=== PATIENT | female | born 1960 | race Caucasian/White ===

== ENCOUNTER 2024-03-16 09:20 | Inpatient (IN) | payer MEDICAID, SELFPAY ==
--- NOTE | 2024-03-16 09:35 | XR_ITS ---
Examination: AP lateral chest 2 views TECHNIQUE: Sitting AP lateral chest 2 views Exam date and time: March 16, 2024 1004 hours INDICATIONS: Chest pain today FINDINGS: Mild prominence left ventricle No lobar pneumonia or pulmonary edema Moderate osteopenia IMPRESSION: No lobar pneumonia or pulmonary edema
--- NOTE | 2024-03-16 09:35 | EKG_ITS ---
[facility] Test Date: 2024-03-16 Pat Name: RAJWINDER RDZ Department: Room: - Gender: Female Telehealth Nurse: : 1960 Requested By: Kirk Garcia Order Number: [id number] Reading MD: Kirk Garcia Measurements Intervals [place] Rate: 86 P: 78 VT: 176 QRS: -17 QRSD: 82 T: 66 QT: 285 QTc: 341 Interpretive Statements SINUS RHYTHM LOW QRS VOLTAGE IN PRECORDIAL LEADS [QRS DEFLECTION < 1.0 mV IN CHEST LEADS] POSSIBLE ANTERIOR MYOCARDIAL INFARCTION , PROBABLY OLD [30 ms Q WAVE IN V3/V4, OR R < 0.2 mV IN V4] Compared to ECG 08/14/2021 08:20:37 Myocardial infarct finding now present /store/S0/[id number]
--- NOTE | 2024-03-16 09:35 | XR_ITS ---
Examination: CT brain head without contrast. 2-D sagittal coronal reconstructions Date and time of exam:March 16, 2024 0949 hours Comparison July 20, 2018 INDICATIONS: Seizures today and dizziness lightheadedness beginning 4 days ago CTDI: vol (mGy):47.2 DLP: (mGycm):948 Technique: Multiple CT axial sections of the brain have been obtained, 5 mm slice thickness. Contrast has not been administered. 2-D sagittal, coronal reconstructions have been obtained Low dose protocols were performed. One or more of the following dose reduction techniques were used; automated exposure control, adjustment of the mA and/or KV according to patient size, use of iterative reconstruction technique. Findings: Fourth ventricle remains enlarged Intra-axial or extra-axial hemorrhage density is not seen. No mass effect or midline shift Basal cisterns are not remarkable. Fourth ventricle is midline. Cranial vault intact. Impression: Negative for acute hemorrhage, mass effect or midline shift Advise clinical correlation and follow-up accordingly
--- NOTE | 2024-03-16 09:36 | EDRME_ITS ---
Rapid Medical Screening Exam RME Arrival date/time: 03/16/24 09:20 63-year-old female with a history of developmentally delayed, seizures, hypertension, hyperlipidemia, presents to the emergency room with a chief complaint of seizures x 4 days as well as weakness and lethargy. Patient is currently from a intermediate and was sent over by her primary care provider. I have greeted and performed a focused initial assessment of this patient. A comprehensive ED assessment and evaluation of the patient, analysis of all test results, and completion of the medical decision making process will be conducted by additional ED providers. Chief Complaint: Seizure Time Seen by Provider: 03/16/24 09:26 Vital signs reviewed by provider: Yes
[2024-03-16 09:45] VITALS: BP 133/83; PULSE 62; RESP 19; TEMP 36.8; O2SAT 97
[2024-03-16 10:29] LABS: Basophils % (Auto) 0 % (0-2.5); Eosinophils % (Auto) 0 % (0-10); Hematocrit 32.3 % (36.0-46.0); Hemoglobin 10.4 g/dL (12.0-16.0); Immature Granulocytes % (Auto) 0 % (0-0); Immature Granulocytes Auto 0.01 Thou/mm3 (0.00-0.00); Lymphocytes % (Auto) 17 % (10-50); Mean Corpuscular HGB Conc 32.2 g/dl (31.0-37.0); Mean Corpuscular Hemoglobin 27.4 pg (25.0-35.0); Mean Corpuscular Volume 85 fL (80-100); Monocytes # (Auto) 0.4 Thou/mm3 (0.0-0.8); Monocytes % (Auto) 7 % (0-12); Neutrophils # (Auto) 4.4 Thou/mm3 (1.8-7.7); Neutrophils % (Auto) 76 % (37-80); Nucleated Red Blood Cell % 0 /100 WBC (0); Platelet Count 142 Thou/mm3 (140-440); RDW Standard Deviation 41.4 fL (36.4-46.3); White Blood Count 5.8 Thou/mm3 (3.6-11.0)
[2024-03-16 10:45] LABS: Partial Thromboplastin Time 22.7 Seconds (22.0-36.0); Prothrombin Time 10.8 Seconds (9.0-12.2)
[2024-03-16 10:48] LABS: B-Type Natriuretic Peptide 28 pg/mL (0-100)
[2024-03-16 10:50] LABS: Alanine Aminotransferase 17 U/L (10-49); Albumin, Serum 4.5 gm/dL (3.4-4.8); Albumin/Globulin Ratio 1.7 (1.2-2.2); Alkaline Phosphatase 119 U/L (46-116); Anion Gap 7 (7-16); Aspartate Amino Transferase 13 U/L (0-34); BUN/Creatinine Ratio 16 Ratio (12-20); Bilirubin,Total 0.3 mg/dL (0.3-1.2); Blood Urea Nitrogen 36 mg/dL (9-23); Carbon Dioxide 33.2 mMol/L (20.0-31.0); Chloride 98 mMol/L (98-107); Creatinine (Component) 2.2 mg/dL (0.6-1.3); Globulin 2.7 gm/dL (2.3-3.5); Glucose 116 mg/dL (74-106); LDH (Lactate Dehydrogenase) 158 U/L (120-246); Magnesium 2.7 mg/dL (1.6-2.6); Osmolality,Calculated 284 (275-295); Potassium 3.2 mMol/L (3.4-5.1); Sodium 138 mMol/L (136-145); Total Protein 7.2 gm/dL (5.7-8.2); Troponin I < 0.020 ng/mL (0.0-0.045); eGFR 25 See Note
[2024-03-16 12:06] LABS: Collection Type, Urine Clean Catch
[2024-03-16 12:30] VITALS: BP 137/91; PULSE 80; RESP 18; TEMP 36.4; O2SAT 98
[2024-03-16 14:12] LABS: Bilirubin,Urine Negative (Negative); Blood,Urine Negative (Negative); Clarity,Urine Clear (Clear/Hazy); Color,Urine Lt-Yellow (Lt Yel-Yel); Glucose, Urine Negative (Negative); Hyaline Casts,Urine 1 /hpf (0-1); Ketones,Urine Negative (Negative); Leukocyte Esterase,Urine Negative (Negative); Nitrite,Urine Positive (Negative); PH,Urine 6.5 (5.0-7.0); Protein,Urine Trace (Neg - Trace); RBC,Urine 2 /hpf (0-3); Specific Gravity,Urine 1.013 (1.001-1.035); Squamous Epithelial Cell,Urine < 1 /hpf (0-5); Urobilinogen,Urine Negative mg/dL (0.0-1.0); WBC,Urine 5 /hpf (0-5)
[2024-03-16 15:26] VITALS: BP 134/86; PULSE 79; RESP 18; TEMP 36.7; O2SAT 100
[2024-03-16] MEDS: levETIRAcetam INJ 100 MG/ML VIAL 5ML 1000 MG IVP (15:37)
[2024-03-16] MEDS: SODIUM CHLORIDE 0.9% 1000 ML 1,000 ML 999 ML IV ×2 (15:37→17:29)
--- NOTE | 2024-03-16 15:38 | EDNOTE_ITS ---
<Statement entered by Shawna Bill MD - 03/22/24 16:20> As co-signing physician, I was present and available for consult prn. I concur with the plan and care as documented by the midlevel provider. ED General RME/HPI General Chief complaint: Seizure Stated complaint: SEIZURES Time Seen by Provider: 03/16/24 09:26 Arrival date/time: 03/16/24 09:20 CC: Seizure disorder HPI patient had approximately 4 seizures by care providers at bedside who report each lasting 45 seconds plus or minus last seizures prior to these was 1 year ago. He is on 2 seizure medication is managed by Dr. Elizondo the neurologist. Patient is developmentally delayed awake alert happy answering all questions in both Czech and Hebrew. She is nontoxic- appearing not in any acute distress. RME / HPI RME / HPI narrative: 03/16/24 09:20 63-year-old female with a history of developmentally delayed, seizures, hypertension, hyperlipidemia, presents to the emergency room with a chief complaint of seizures x 4 days as well as weakness and lethargy. Patient is currently from a assisted and was sent over by her primary care provider. I have greeted and performed a focused initial assessment of this patient. A comprehensive ED assessment and evaluation of the patient, analysis of all test results, and completion of the medical decision making process will be conducted by additional ED providers. Related Data Home Medications ?Medication ?Instructions ?Recorded ?Confirmed calcitriol 0.25 mcg capsule 1 mcg PO QDAY 02/15/23 03/16/24 carbamazepine 200 mg tablet 200 mg PO BID 02/15/23 03/16/24 cholecalciferol (vitamin D3) 50 50 mcg PO QDAY 02/15/23 03/16/24 mcg (2,000 unit) tablet levetiracetam 500 mg tablet 500 mg PO BID 02/15/23 03/16/24 levothyroxine 112 mcg tablet 112 mcg PO ACBR 02/15/23 03/16/24 losartan 50 mg tablet 50 mg PO QDAY 02/15/23 03/16/24 magnesium oxide 400 mg (241.3 mg 400 mg PO QDAY 02/15/23 03/16/24 magnesium) tablet oxybutynin chloride 5 mg tablet 5 mg PO QDAY 02/15/23 03/16/24 risperidone 0.5 mg tablet 0.25 mg PO BID 02/15/23 03/16/24 simvastatin 40 mg tablet 40 mg PO HS 02/15/23 03/16/24 zonisamide 100 mg capsule 200 mg PO BID 02/15/23 03/16/24 calcium 600 mg (as 600 tab PO BID 03/16/24 03/16/24 carbonate)-vitamin D3 10 mcg (400 unit) tablet cetirizine 10 mg tablet 10 mg PO QDAY 03/16/24 03/16/24 ferrous sulfate 325 mg (65 mg 325 mg PO QDAY 03/16/24 03/16/24 iron) tablet (FeroSul) fluticasone propionate 50 2 spray intranasal QDAY 03/16/24 03/16/24 mcg/actuation nasal spray,suspension hydroxyzine HCl 25 mg tablet 25 mg PO HS 03/16/24 03/16/24 olopatadine 0.1 % eye drops 1 drp ophthalmic (eye) BID 03/16/24 03/16/24 Allergies Allergy/AdvReac Type Severity Reaction Status Date / Time No Known Allergies Allergy Unverified 03/16/24 09:24 Review of Systems Review of Systems Narrative Review of Systems: GEN: No fever, no chills, no weight loss EYES: No discharge, no visual changes, no pain HEENT: No ear pain, no congestion, no sore throat PULM: No shortness of breath, no cough, no congestion CV: No chest pain, no dyspnea on exertion, no palpitations GI: No nausea, no vomiting, no diarrhea, no pain, no constipation : No frequency, no urgency, no dysuria MUSC/SKEL: No joint pain, no back pain SKIN: No rash PSYCH: No hallucinations, no depression HEME/LYMPH: No easy bleeding or bruising tendencies NEURO: No weakness, no headache Past Medical History Past Medical History NEUROLOGIC: Positive Neurological Disorders, Seizures and Epilepsy CARDIAC: Positive Cardiac Disorders, Hypercholesterolemia and Hypertension; Negative Congestive Heart Failure RESPIRATORY: Negative Chronic Obstructive Pulmonary Disease (COPD) or Asthma GENITOURINARY: Negative Renal Disease REPRODUCTIVE: Negative Breast Cancer MUSCULOSKELETAL: Negative Musculoskeletal Disorders ENDOCRINE: Positive Hypothyroidism; Negative Diabetes Mellitus Type 1 or Diabetes Mellitus Type 2 OTHER HISTORY: Positive Falls; Negative Blood Transfusions, Blood Transfusion Reaction, Anesthesia Reactions, Clostridium Difficile, Cancer or Breast Cancer Family History FAMILY HISTORY: Positive Family Respiratory Disorders and Family Cardiac Disorders Surgical History SURGICAL: Negative Endocrine Surgery or Ear Surgery Social History SMOKING STATUS: Never smoker ED Exam Narrative Physical exam: [General: Obese, appears not in any acute distress Head normocephalic HEENT: Within acceptable limits Neck is supple nontender Chest equal chest rise nontender to palpation Respiratory: Clear to auscultation no wheezes crackles or rubs CV: Rate rhythm is regular no murmurs rubs or clicks Abdomen is distended secondary to body habitus soft nontender no masses positive bowel sounds all 4 quadrants Back: No CVA tenderness no spinous process tenderness from cervical spine thoracic and lumbar spine Skin: Intact no petechiae rash induration ulceration or crepitus Extremities: Moving all extremity against resistance cap refill less than 2 seconds neurosensory intact Neuro: Awake alert oriented x3 Glascow coma 15 no focal deficits] cranial nerves II through XII are grossly intact. Course Quality Measures none Orders Category Date Time Status Patient Condition Routine Admission 03/16/24 16:06 Ordered EKG (ED ONLY) *Do not use* NOW Care 03/16/24 09:35 Completed Flu & Pneumonia Vaccine Screen ONCE Care 03/16/24 16:07 Active Notify provider NEEDED Care 03/16/24 16:07 Active Obtain weight daily Care 03/16/24 16:07 Active Saline [Insert IV] NOW Care 03/16/24 15:21 Completed Consult to Nephrology Stat Cons 03/17/24 06:[address] head/brain wo con Stat Exams 03/16/24 09:35 Completed EKG (ED Only) Stat Exams 03/16/24 09:35 Draft XR chest 2V Stat Exams 03/16/24 09:35 Completed B-Type Natriuretic Peptide Stat Lab 03/16/24 10:17 Completed CA 125 Stat Lab 03/16/24 16:38 Completed CA 19-9 Antigen* Stat Lab 03/16/24 16:38 Received CBC AM DRAW Lab 03/17/24 05:10 Completed CBC AM DRAW Lab 03/18/24 05:47 Completed CBC AM DRAW Lab 03/19/24 05:00 Ordered CBC AM DRAW Lab 03/20/24 05:00 Ordered CBC AM DRAW Lab 03/21/24 05:00 Ordered CBC Stat Lab 03/16/24 10:17 Completed CEA [Carcinoembryonic Antigen] Stat Lab 03/16/24 16:38 Completed Comprehensive Metabolic Panel AM DRAW Lab 03/17/24 05:10 Completed Comprehensive Metabolic Panel AM DRAW Lab 03/18/24 05:47 Completed Comprehensive Metabolic Panel AM DRAW Lab 03/19/24 05:00 Ordered Comprehensive Metabolic Panel AM DRAW Lab 03/20/24 05:00 Ordered Comprehensive Metabolic Panel AM DRAW Lab 03/21/24 05:00 Ordered Comprehensive Metabolic Panel Stat Lab 03/16/24 10:17 Completed Free T4 (Free Thyroxine) Stat Lab 03/16/24 10:17 Completed LDH (Lactate Dehydrogenase) Stat Lab 03/16/24 10:17 Completed Lipid Panel AM DRAW Lab 03/17/24 05:10 Completed Magnesium AM DRAW Lab 03/17/24 05:10 Completed Magnesium AM DRAW Lab 03/18/24 05:47 Completed Magnesium AM DRAW Lab 03/19/24 05:00 Ordered Magnesium AM DRAW Lab 03/20/24 05:00 Ordered Magnesium AM DRAW Lab 03/21/24 05:00 Ordered Magnesium Stat Lab 03/16/24 10:17 Completed PTH [Parathyroid Hormone Intact] Stat Lab 03/16/24 16:38 Completed Partial Thromboplastin Time Stat Lab 03/16/24 10:17 Completed Phosphorous AM DRAW Lab 03/17/24 05:10 Completed Phosphorous AM DRAW Lab 03/18/24 05:47 Completed Phosphorous AM DRAW Lab 03/19/24 05:00 Ordered Phosphorous AM DRAW Lab 03/20/24 05:00 Ordered Phosphorous AM DRAW Lab 03/21/24 05:00 Ordered Phosphorous Stat Lab 03/16/24 10:17 Completed Prothrombin Time with INR Stat Lab 03/16/24 10:17 Completed TSH [Thyroid Stimulating Hormone] Stat Lab 03/16/24 10:17 Completed Thyroid Stimulating Hormone AM DRAW Lab 03/17/24 05:10 Completed Troponin I Stat Lab 03/16/24 10:17 Completed Urinalysis Stat Lab 03/16/24 11:28 Completed Urine Culture Stat Lab 03/16/24 11:28 Completed Acetaminophen Tab [Tylenol Tab] Med 03/16/24 16:05 Active 650 mg PO Q6H PRN Acetaminophen Tab [Tylenol Tab] Med 03/16/24 16:05 Active 650 mg PO Q6H PRN Docusate Sod [Colace] Med 03/17/24 09:00 Active 100 mg PO QDAY Heparin Inj Med 03/16/24 22:00 Active 5,000 unit SC Q8HR Ondansetron Inj [Zofran Inj] Med 03/16/24 16:05 Active 4 mg IV Q6H PRN Sodium Chloride 0.9% 1000 ml [Ns] 1,000 ml Med 03/16/24 15:23 Discontinued IV 999 mls/hr Sodium Chloride 0.9% 1000 ml [Ns] 1,000 ml Med 03/16/24 17:09 Discontinued IV 999 mls/hr levETIRAcetam INJ [Keppra Inj] Med 03/16/24 15:21 Discontinued 1,000 mg IVP X1 ONE Code Status Routine Oth 03/16/24 16:05 Ordered Vital Signs Vital signs: Vital Signs Temperature 98.2 F 03/16/24 09:45 Pulse Rate 62 03/16/24 09:45 Respiratory Rate 19 03/16/24 09:45 Blood Pressure 133/83 H 03/16/24 09:45 Pulse Oximetry (%) 97 03/16/24 09:45 Oxygen Delivery Method Room Air 03/16/24 09:45 [facility] Patient data External records reviewed:: [facility] previous records and EMS form Clinical information provided by:: patient and EMS Social determinants that could affect healthcare access:: none Patient has the following chronic illnesses:: Developmentally delayed seizure disorder, hypothyroidism How is presenting disease/condition affected by chronic disease/condition?: e xacerbated by Evaluation data The following diagnostics were reviewed and interpreted by me:: lab results and radiology exam(s) Lab and/or radiology exams considered but not ordered:: CBC shows no leukocytosis and improved anemia of 10 and 32 no thrombocytopenia CMP shows a sodium 138 potassium 3.2 chloride of 9 8 CO2 of 33.2 BUN of 36 creatinine 2.2 glucose of 116 Calcium and corrected calcium of 16.0 Urine is negative for UTI Interpretation Summary: Patient has noes postictal effects from the seizures, reloaded the patient with 1 g of Keppra. Staff assured me the patient has been getting all of her medications regularly which in turn is my concern for the elevated calcium level as she is on a calcium tablet twice a day. At this time patient needs to be admitted to the hospital for hypercalcemia and GABRIEL. Patient's case discussed with Dr. Bryant who agrees to accept the patient for Dr. Brown attending Medications Medications considered but not ordered:: None Medication administrations:: Medication Administration History Acetaminophen (Acetaminophen 325 Mg Tablet) 650 mg PO Q6H PRN PRN Reason: Fever >100.5 Stop: 04/15/24 16:04 Acetaminophen (Acetaminophen 325 Mg Tablet) 650 mg PO Q6H PRN PRN Reason: PAIN SCALE 1-3 (mild Stop: 04/15/24 16:04 Last Admin: 03/17/24 14:31 Dose: 650 mg Documented By: SHAWN Atorvastatin Calcium (Atorvastatin Calcium 20 Mg Tablet) 40 mg PO HS [facility] Stop: 04/15/24 20:59 Last Admin: 03/17/24 20:01 Dose: 40 mg Documented By: Admin: 03/16/24 21:40 Dose: 40 mg Documented By: DIONY Carbamazepine (Carbamazepine 200 Mg Tablet) 200 mg PO BID [facility] Stop: 04/15/24 20:59 Last Admin: 03/18/24 08:09 Dose: 200 mg Documented By: Admin: 03/17/24 20:02 Dose: 200 mg Documented By: Admin: 03/17/24 09:17 Dose: 200 mg Documented By: Admin: 03/16/24 21:41 Dose: 200 mg Documented By: DIONY Docusate Sodium (Docusate Sod 100 Mg Capsule) 100 mg PO QDAY [facility]; Protocol Stop: 04/16/24 08:59 Last Admin: 03/18/24 08:09 Dose: 100 mg Documented By: Admin: 03/17/24 09:16 Dose: 100 mg Documented By: SHAWN Heparin Sodium (Porcine) (Heparin Sod Inj 5000 Unit/Ml Vial) 5,000 unit SC Q8HR [facility] Stop: 03/30/24 21:59 Last Admin: 03/18/24 05:57 Dose: 5,000 unit Documented By: DIONY Co-signed By: RISHABH Admin: 03/17/24 21:15 Dose: 5,000 unit Documented By: DIONY Co-signed By: ULICES Admin: 03/17/24 13:48 Dose: 5,000 unit Documented By: SHAWN Co-signed By: RAZIA Admin: 03/17/24 05:05 Dose: 5,000 unit Documented By: DIONY Co-signed By: RISHABH Admin: 03/16/24 21:42 Dose: 5,000 unit Documented By: DIONY Co-signed By: RISHABH Sodium Chloride (Ns) 1,000 mls @ 200 mls/hr IV .Q5H [facility] Stop: 04/15/24 17:13 Last Admin: 03/18/24 06:23 Dose: 200 mls/hr Documented By: Infusion: 03/18/24 04:47 Dose: Infused Documented By: Admin: 03/17/24 23:47 Dose: 200 mls/hr Documented By: Admin: 03/17/24 23:46 Dose: Not Given Documented By: CG Non-Admin Reason: Wrong Time Admin: 03/17/24 19:23 Dose: Not Given Documented By: CG Non-Admin Reason: Wrong Time Infusion: 03/17/24 14:24 Dose: Infused Documented By: Admin: 03/17/24 09:24 Dose: 200 mls/hr Documented By: Infusion: 03/17/24 09:24 Dose: Infused Documented By: Admin: 03/17/24 05:05 Dose: 200 mls/hr Documented By: Infusion: 03/17/24 04:57 Dose: Infused Documented By: Admin: 03/16/24 23:57 Dose: 200 mls/hr Documented By: Infusion: 03/16/24 23:41 Dose: Infused Documented By: Admin: 03/16/24 18:41 Dose: 200 mls/hr Documented By: MUKESH Ceftriaxone Sodium/Dextrose (Rocephin/D5w 1gm Iv Premix) 50 mls @ 100 mls/hr IV QDAY [facility] Stop: 03/25/24 09:41 Last Admin: 03/18/24 10:53 Dose: 100 mls/hr Documented By: SHAWN Labetalol HCl (Labetalol Inj 5 Mg/Ml Vial 20 Ml) 10 mg IVP Q2H PRN PRN Reason: SBP > 180 Stop: 04/16/24 00:29 Levetiracetam (Levetiracetam 250 Mg Tablet) 500 mg PO BID [facility] Stop: 04/15/24 20:59 Last Admin: 03/18/24 08:08 Dose: 500 mg Documented By: Admin: 03/17/24 20:01 Dose: 500 mg Documented By: Admin: 03/17/24 09:16 Dose: 500 mg Documented By: Admin: 03/16/24 21:40 Dose: 500 mg Documented By: DIONY Levothyroxine Sodium (Levothyroxine Sodium 112 Mcg Tablet) 112 mcg PO ACBR [facility] Stop: 04/16/24 05:59 Last Admin: 03/18/24 05:57 Dose: 112 mcg Documented By: Admin: 03/17/24 05:05 Dose: 112 mcg Documented By: DIONY Ondansetron HCl (Ondansetron Inj 2 Mg/Ml Inj 2 Ml) 4 mg IV Q6H PRN; Protocol PRN Reason: NAUSEA OR VOMITING Stop: 04/15/24 16:04 Last Admin: 03/17/24 21:55 Dose: 4 mg Documented By: Admin: 03/17/24 14:24 Dose: 4 mg Documented By: Admin: 03/17/24 04:03 Dose: 4 mg Documented By: Admin: 03/16/24 18:48 Dose: 4 mg Documented By: MUKESH Pantoprazole Sodium (Pantoprazole 40 Mg Tablet) 40 mg PO QDAY [facility] Stop: 04/16/24 08:59 Last Admin: 03/18/24 08:09 Dose: 40 mg Documented By: Admin: 03/17/24 09:17 Dose: 40 mg Documented By: SHAWN Risperidone (Risperidone 0.5 Mg Tablet) 0.25 mg PO BID [facility] Stop: 04/15/24 20:59 Last Admin: 03/18/24 08:09 Dose: 0.25 mg Documented By: SHAWN Comments: Admin: 03/17/24 20:01 Dose: 0.25 mg Documented By: Admin: 03/17/24 09:16 Dose: 0.25 mg Documented By: Admin: 03/16/24 21:41 Dose: 0.25 mg Documented By: DIONY Zonisamide (Zonisamide 100 Mg Capsule) 200 mg PO BID [facility] Stop: 04/15/24 20:59 Last Admin: 03/18/24 08:10 Dose: 200 mg Documented By: Admin: 03/17/24 20:01 Dose: 200 mg Documented By: Admin: 03/17/24 09:18 Dose: 200 mg Documented By: Admin: 03/16/24 21:41 Dose: 200 mg Documented By: CG Discontinued Medications Calcitonin Harvard (Calcitonin, Harvard Synth Inj 1 Unit/0.005 Ml Vial) 320 unit SC Q12H [facility] Stop: 03/18/24 17:14 Last Admin: 03/17/24 05:27 Dose: Not Given Documented By: DIONY Non-Admin Reason: Medication Not Available Admin: 03/16/24 18:31 Dose: 320 unit Documented By: MUKESH Calcitonin Harvard (Calcitonin, Harvard Synth Inj 1 Unit/0.005 Ml Vial) 320 unit SC Q12H [facility] Stop: 04/16/24 08:59 Last Admin: 03/18/24 08:11 Dose: 320 unit Documented By: Admin: 03/17/24 20:02 Dose: 320 unit Documented By: Admin: 03/17/24 09:18 Dose: 320 unit Documented By: SHAWN Sodium Chloride (Ns) 1,000 mls @ 999 mls/hr IV .Q1H1M ONE Stop: 03/16/24 16:23 Last Infusion: 03/16/24 17:30 Dose: Infused Documented By: Admin: 03/16/24 15:37 Dose: 999 mls/hr Documented By: ANDREW Sodium Chloride (Ns) 1,000 mls @ 999 mls/hr IV .Q1H1M ONE Stop: 03/16/24 18:09 Last Admin: 03/16/24 17:29 Dose: 999 mls/hr Documented By: ANDREW Potassium Chloride (Kcl Ivpb) 10 meq in 100 mls @ 100 mls/hr IV Q1H [facility] Stop: 03/18/24 11:15 Last Admin: 03/18/24 10:35 Dose: 100 mls/hr Documented By: Infusion: 03/18/24 10:31 Dose: Infused Documented By: Admin: 03/18/24 09:31 Dose: 100 mls/hr Documented By: Infusion: 03/18/24 09:12 Dose: Infused Documented By: Admin: 03/18/24 08:12 Dose: 100 mls/hr Documented By: Infusion: 03/18/24 08:12 Dose: Infused Documented By: Admin: 03/18/24 07:31 Dose: 100 mls/hr Documented By: SHAWN Labetalol HCl (Labetalol 100 Mg Tablet) 100 mg PO X1 ONE Stop: 03/17/24 00:22 Last Admin: 03/17/24 00:29 Dose: 100 mg Documented By: DIONY Levetiracetam (Levetiracetam Inj 100 Mg/Ml Vial 5ml) 1,000 mg IVP X1 ONE Stop: 03/16/24 15:22 Last Admin: 03/16/24 15:37 Dose: 1,000 mg Documented By: ANDREW Potassium Chloride (Potassium Chloride 20 Meq Tabcr) 40 meq PO X1 ONE Stop: 03/16/24 17:31 Last Admin: 03/16/24 19:01 Dose: 40 meq Documented By: ANDREW Potassium Phos/Sodium Phos (Naph,[facility] Mbdb 1 Packet (1.5 Gm)) 1 packet PO X1 ONE Stop: 03/18/24 09:42 Last Admin: 03/18/24 10:53 Dose: 1 packet Documented By: SHAWN None Consultations Consultation(s) initiated? (list below): No Diagnosis Differential Diagnosis ED Complaint MDM: Hypercalcemia electrolyte imbalances GABRIEL Most likely diagnosis given after review of the tests above:: Hypercalcemia GABRIEL Admission Indicated Admission indicated?: indicated Explain why admission is indicated or not indicated:: Further medical management Admission Request Was there a request for admission?: No Disposition Plan Disposition Plan: Admit Medical Decision Making Differential Diagnosis Differential Diagnosis: Hypercalcemia electrolyte imbalances GABRIEL Lab Data 03/18/24 05:47 03/18/24 05:47 Labs: Lab Results 03/16/24 03/16/24 Range/Units 10:17 11:28 WBC 5.8 (3.6-11.0) Thou/mm3 RBC 3.80 L (4.00-5.20) Miln/mm3 Hgb 10.4 L (12.0-16.0) g/dL Hct 32.3 L (36.0-46.0) % MCV 85 (80-100) fL MCH 27.4 (25.0-35.0) pg MCHC 32.2 (31.0-37.0) g/dl RDW Std Deviation 41.4 (36.4-46.3) fL Plt Count 142 (140-440) Thou/mm3 Neut % (Auto) 76 (37-80) % Lymph % (Auto) 17 (10-50) % Leon % (Auto) 7 (0-12) % Eos % (Auto) 0 (0-10) % Baso % (Auto) 0 (0-2.5) % Neut # (Auto) 4.4 (1.8-7.7) Thou/mm3 Lymph # (Auto) 1.0 (1.0-4.8) Thou/mm3 Leon # (Auto) 0.4 (0.0-0.8) Thou/mm3 Eos # (Auto) 0.0 (0.0-0.5) Thou/mm3 Baso # (Auto) 0.0 (0.0-0.2) Thou/mm3 Immature Gran # (Auto) 0.01 H (0.00-0.00) Thou/mm3 Absolute Nucleated RBC 0.00 (0.00-0.00) Thou/mm3 Immature Gran % 0 (0-0) % Nucleated RBC % 0 (0) /100 WBC PT 10.8 (9.0-12.2) Seconds INR 1.0 (0.9-1.3) APTT 22.7 (22.0-36.0) Seconds Sodium 138 (136-145) mMol/L Potassium 3.2 L (3.4-5.1) mMol/L Chloride 98 (98-107) mMol/L Carbon Dioxide 33.2 H (20.0-31.0) mMol/L Anion Gap 7 (7-16) BUN 36 H (9-23) mg/dL Creatinine 2.2 H (0.6-1.3) mg/dL Estim Creat Clear Calc Not Performed. eGFR 25 L (60 - ) See Note BUN/Creatinine Ratio 16 (12-20) Ratio Glucose 116 H (74-106) mg/dL Calculated Osmolality 284 (275-295) Calcium 16.0 H* (8.3-10.6) mg/dL Corrected Calcium 16.0 H* (8.5-10.1) mg/dL Phosphorus 3.9 (2.4-5.1) mg/dL Magnesium 2.7 H (1.6-2.6) mg/dL Total Bilirubin 0.3 (0.3-1.2) mg/dL AST 13 (0-34) U/L ALT 17 (10-49) U/L Alkaline Phosphatase 119 H (46-116) U/L Lactate Dehydrogenase 158 (120-246) U/L Troponin I < 0.020 (0.0-0.045) ng/mL B-Natriuretic Peptide 28 (0-100) pg/mL Total Protein 7.2 (5.7-8.2) gm/dL Albumin 4.5 (3.4-4.8) gm/dL Globulin 2.7 (2.3-3.5) gm/dL Albumin/Globulin Ratio 1.7 (1.2-2.2) TSH 7.14 H (0.55-4.78) uIU/mL Free T4 0.89 (0.89-1.76) ng/dL Ur Collection Type Clean Catch Urine Color Lt-Yellow (Lt Yel-Yel) Urine Clarity Clear (Clear/Hazy) Urine pH 6.5 (5.0-7.0) Ur Specific [place] 1.013 (1.001-1.035) Urine Protein Trace (Neg - Trace) Urine Glucose (UA) Negative (Negative) Urine Ketones Negative (Negative) Urine Blood Negative (Negative) Urine Nitrite Positive (Negative) Urine Bilirubin Negative (Negative) Urine Urobilinogen (Auto) Negative (0.0-1.0) mg/dL Ur Leukocyte Esterase Negative (Negative) Urine RBC 2 (0-3) /hpf Urine WBC 5 (0-5) /hpf Ur Squamous Epith Cells < 1 (0-5) /hpf Urine Bacteria None (None) Hyaline Casts 1 (0-1) /hpf Discharge Plan Plan Patient Disposition: Other Care w/in Hosp ([facility]) Patient condition on transfer: Stable Problem List Clinical Impression: Hypercalcemia, GABRIEL (acute kidney injury) PA/MANAGEMENT ADVISOR Supervising Physician PA/MANAGEMENT ADVISOR Supervising Physician: Abraham Emmanuel ENP
--- NOTE | 2024-03-16 16:14 | ESHP_ITS ---
<Statement entered by Lizzie Brown MD - 03/20/24 14:16> I reviewed above note and agree with findings and plans. I have also personally examined the patient with medicine team and went over assessment and plan with medical team including resident intern and resident physician. Documentation for date of: 03/16/24 HPI History of Present Illness Chief complaint: seizures History of present illness: Patient is poor historian 63-year-old female with past medical history of developmental delay, seizure disorder, hypertension, hyperlipidemia, hypoparathyroidism, hypothyroidism, hypocalcemia, presented to the ED due to seizure-like activity. Per care provider patient had 4 episodes of seizures between Tuesday and last 1 being yesterday night 03/15/2024. Patient has history of seizure disorder is seen by neurologist Dr. Elizondo, per caregiver, last seizure activity was more than 1 year ago. Seizures were described to last less than 45 minutes associated with nausea and 1 episode of vomiting, but denies incontinence, loss of consciousness. Caregiver states that when seizure activity happened the patient became weak and slouched over but did not lose consciousness nor hit her head. Patient will be admitted for malignant hypercalcemia with associated seizure- like activity. ED course: Vitals on arrival unremarkable except some mild hypertension systolic blood pressure in 130s, CBC significant for some mild normocytic anemia hemoglobin of 10.4, chemistry panel significant for some hypokalemia potassium 3.2, elevated BUN 36 and creatinine 2.2, calcium and corrected calcium 16, magnesium 2.7, alk phos 519, TSH 7.14 Free T4 0.9, UA showed positive nitrates but otherwise unremarkable. Head CT was done was negative for acute hemorrhage, midline shift, or mass effect. EKG was done showed normal sinus rhythm, chest x-ray was unremarkable. In the ED patient received 1 g of Keppra, 1 L of NS. PMHx: As above SX Hx: Right hip replacement Social Hx: Denies smoking, alcohol use, illicit drug use FHx: Unknown Review of Systems Review of Systems ROS Unobtainable: unobtainable due to medical condition Exam Vital Signs Temp Pulse Resp BP Pulse Ox O2 Del Method 98.1 F 79 18 134/86 H 100 Room Air 03/16/24 15:26 03/16/24 15:26 03/16/24 15:26 03/16/24 15:26 03/16/24 15:26 03/16/24 15:26 Narrative Exam Physical Exam GENERAL: NAD, developmental delay, obese HEENT: Moist mucosa. Eyes open, symmetrical, & clear CARDIO: Heart RRR, no obvious murmurs PULM: No noted coughing/dyspnea CTA B/L, no R/W/R GI: Abdomen soft, nondistended, no pain on palpation. BSx4 SKIN/MSK/EXT: No wounds/rashes/edema/amputations, no pain on palpation. Pedal pulses present B/L NEURO: able to move all 4 extremities Results: Labs 03/17/24 05:10 03/16/24 10:17 Labs: Short CBC 03/16/24 Range/Units 10:17 WBC 5.8 (3.6-11.0) Thou/mm3 Hgb 10.4 L (12.0-16.0) g/dL Hct 32.3 L (36.0-46.0) % Plt Count 142 (140-440) Thou/mm3 BMP 03/16/24 10:17 Sodium 138 Potassium 3.2 L Chloride 98 Carbon Dioxide 33.2 H BUN 36 H Creatinine 2.2 H Glucose 116 H Calcium 16.0 H* Cardiac Enzymes 03/16/24 Range/Units 10:17 Troponin I < 0.020 (0.0-0.045) ng/mL Liver Function 03/16/24 Range/Units 10:17 Total Bilirubin 0.3 (0.3-1.2) mg/dL AST 13 (0-34) U/L ALT 17 (10-49) U/L Alkaline Phosphatase 119 H (46-116) U/L Albumin 4.5 (3.4-4.8) gm/dL Urine 03/16/24 Range/Units 11:28 Urine Color Lt-Yellow (Lt Yel-Yel) Urine Clarity Clear (Clear/Hazy) Urine pH 6.5 (5.0-7.0) Ur Specific [place] 1.013 (1.001-1.035) Urine Protein Trace (Neg - Trace) Urine Glucose (UA) Negative (Negative) Quality Measures Quality Measures VTE prophylaxis Medications Home Medications and Allergies Home Medications ?Medication ?Instructions ?Recorded ?Confirmed ?Type calcitriol 0.25 mcg capsule 1 mcg PO QDAY 02/15/23 03/16/24 History carbamazepine 200 mg tablet 200 mg PO BID 02/15/23 03/16/24 History cholecalciferol (vitamin D3) 50 50 mcg PO QDAY 02/15/23 03/16/24 History mcg (2,000 unit) tablet levetiracetam 500 mg tablet 500 mg PO BID 02/15/23 03/16/24 History levothyroxine 112 mcg tablet 112 mcg PO ACBR 02/15/23 03/16/24 History losartan 50 mg tablet 50 mg PO QDAY 02/15/23 03/16/24 History magnesium oxide 400 mg (241.3 mg 400 mg PO QDAY 02/15/23 03/16/24 History magnesium) tablet oxybutynin chloride 5 mg tablet 5 mg PO QDAY 02/15/23 03/16/24 History risperidone 0.5 mg tablet 0.25 mg PO BID 02/15/23 03/16/24 History simvastatin 40 mg tablet 40 mg PO HS 02/15/23 03/16/24 History zonisamide 100 mg capsule 200 mg PO BID 02/15/23 03/16/24 History calcium 600 mg (as 600 tab PO BID 03/16/24 03/16/24 History carbonate)-vitamin D3 10 mcg (400 unit) tablet cetirizine 10 mg tablet 10 mg PO QDAY 03/16/24 03/16/24 History ferrous sulfate 325 mg (65 mg 325 mg PO QDAY 03/16/24 03/16/24 History iron) tablet (FeroSul) fluticasone propionate 50 2 spray intranasal QDAY 03/16/24 03/16/24 History mcg/actuation nasal spray,suspension hydroxyzine HCl 25 mg tablet 25 mg PO HS 03/16/24 03/16/24 History olopatadine 0.1 % eye drops 1 drp ophthalmic (eye) BID 03/16/24 03/16/24 History Allergies Allergy/AdvReac Type Severity Reaction Status Date / Time No Known Allergies Allergy Unverified 03/16/24 09:24 Visit Medications Acetaminophen (Acetaminophen 325 Mg Tablet) 650 mg PO Q6H PRN PRN Reason: Fever >100.5 Stop: 04/15/24 16:04 Acetaminophen (Acetaminophen 325 Mg Tablet) 650 mg PO Q6H PRN PRN Reason: PAIN SCALE 1-3 (mild Stop: 04/15/24 16:04 Docusate Sodium (Docusate Sod 100 Mg Capsule) 100 mg PO QDAY MARKEL; Protocol Stop: 04/16/24 08:59 Heparin Sodium (Porcine) (Heparin Sod Inj 5000 Unit/Ml Vial) 5,000 unit SC Q8HR MARKEL Stop: 03/30/24 21:59 Sodium Chloride (Ns) 1,000 mls @ 999 mls/hr IV .Q1H1M ONE Stop: 03/16/24 16:23 Last Admin: 03/16/24 15:37 Dose: 999 mls/hr Sodium Chloride (Ns) 1,000 mls @ 999 mls/hr IV .Q1H1M ONE Stop: 03/16/24 18:09 Ondansetron HCl (Ondansetron Inj 2 Mg/Ml Inj 2 Ml) 4 mg IV Q6H PRN; Protocol PRN Reason: NAUSEA OR VOMITING Stop: 04/15/24 16:04 Discontinued Medications Levetiracetam (Levetiracetam Inj 100 Mg/Ml Vial 5ml) 1,000 mg IVP X1 ONE Stop: 03/16/24 15:22 Last Admin: 03/16/24 15:37 Dose: 1,000 mg Assessment & Plan Plan 63-year-old female with past medical history of developmental delay, seizure disorder, hypertension, hyperlipidemia, hypoparathyroidism, hypothyroidism, hypocalcemia, presented to the ED due to seizure-like activity. Per care provider patient had 4 episodes of seizures between Tuesday and last 1 being yesterday night 03/15/2024. Seizures were described to last less than 45 minutes associated with nausea and 1 episode of vomiting, but denies incontinence, loss of consciousness. Patient will be admitted for seizures likely secondary to hypercalcemia. 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, lethargic, and not very talkative, however on examination patient was energetic and talkative -Aggressive IV fluids -On calcitonin -Bisphosphonates hold at this time due to GABRIEL -f/u PTH -f/u tumor markers CEA, CA19-9, CA125 -Consider bailey CT once kidney function improves -Resumed Keppra -Resumed carbamazepine -Resumed risperidone -Resumed zonisamide #GABRIEL Baseline creatinine 0.8-1.0 Current creatinine 2.2 Patient takes losartan at home we will hold at this time due to GABRIEL -On IV fluids -Renally dose meds -Avoid nephrotoxic meds -Nephrology consulted, appreciate recommendations #Normocytic anemia MCV 85, Baseline hemoglobin ~ 9 Current hemoglobin 10.4, patient takes at home ferrous sulfate -Iron panel ordered -Will monitor at this time #Hypertension Patient takes losartan at home -Will hold at this time due to GABRIEL #Hypothyroidism -Resume levothyroxine as taken at home -Follow-up TSH, free T4 #Electrolyte disturbances #Hypermagnesemia #Hypokalemia -Replete as needed #Hx of Hypoparathyroidism Per chart review, PTH was ordered -Follow-up PTH Case discussed with my senior Dr. Quintero PGY-[address] Kevin Hamilton MD PGY-1 Disposition: Med telemetry Fluids: Normal saline Feeding: Regular diet Thrombo prophylaxis: Heparin Gastric Ulcer prophylaxis: Pantoprazole CODE STATUS: Full code Senior resident attestation: Patient evaluated and examined at the bedside, plan of care discussed with rest of the team including my attending physician, except as noted. Patient is a 62-year-old female with a past medical history of mental delay and grand mal seizures, hypoparathyroidism and hypocalcemia, hypothyroidism, on levothyroxine as well as calcitriol on multiple antiepileptic medications, reportedly patient had seizure-free interval lasting 1 year, but recently started to have seizure episodes over the past 4 days, last seizure was last night. Currently seen in the emergency room on a [place], at baseline mental status, patient is alert and oriented to self and place only, but is very conversational, requesting food, would like to have a burger with onions. #Seizure disorder ? Continue home medications carbamazepine 200 and twice daily, levetiracetam 500 mg twice daily, risperidone 0.25 mg twice daily, zonisamide 200 mg twice daily. ? Neurology consult, if zcontinued seizure activity. - seizure precautions #Hypercalcemia ? likely medication induced, will hold home medication calcitriol in the setting of severe hypercalcemia, also will order CT chest abdomen pelvis with with contrast once renal function back to baseline to rule out any undiagnosed malignancy given marked hypercalcemia. ?IV fluids boluses given in the ER, continue IVF NS at 200 cc/h ?Calcitonin titrating every 12 hours ? Considered bisphosphonates but will hold off in the setting of GABRIEL ? Parathyroid hormone ordered #GABRIEL ? Nephrology consulted Dr. Francis placed, likely prerenal etiology, aggressive IV fluid resuscitation, plan for CT with IV contrast once kidney function back to baseline. Quresh PGY2
[2024-03-16 16:34] LABS: Free T4 (Free Thyroxine) 0.89 ng/dL (0.89-1.76); Phosphorous 3.9 mg/dL (2.4-5.1); Thyroid Stimulating Hormone 7.14 uIU/mL (0.55-4.78)
[2024-03-16 17:00] VITALS: BP 170/104; PULSE 83; RESP 17; TEMP 36.6; O2SAT 99
[2024-03-16 17:25] LABS: Parathyroid Hormone Intact 3.6 pg/ml (18.5-88.0)
[2024-03-16 17:31] LABS: Carcinoembryonic Antigen 1.4 ng/mL (0.0-5.0)
[2024-03-16 18:07] LABS: Total Iron Binding Capacity 270 mcg/dL (250-425)
[2024-03-16 18:16] LABS: Iron 119 mcg/dL (50-170); Percent Iron Saturation 44 % (20-55); Unsaturated Iron Binding 151 (225-295)
[2024-03-16] MEDS: CALCITONIN, SALMON SYNTH INJ 1 UNIT/0.005 ML VIAL 320 UNIT SC (18:31)
[2024-03-16] MEDS: SODIUM CHLORIDE 0.9% 1000 ML 1,000 ML 200 ML IV ×2 (18:41→23:57)
[2024-03-16] MEDS: ONDANSETRON INJ 2 MG/ML INJ 2 ML 4 MG IV (18:48)
[2024-03-16] MEDS: POTASSIUM CHLORIDE 20 mEq TABCR 40 MEQ PO (19:01)
[2024-03-16 20:15] VITALS: BP 161/82; PULSE 94; RESP 16; TEMP 36.6; O2SAT 95
[2024-03-16 20:47] VITALS: BMI 29.2
[2024-03-16] MEDS: levETIRAcetam 250 MG TABLET 500 MG PO (21:40)
[2024-03-16] MEDS: ATORVASTATIN CALCIUM 20 MG TABLET 40 MG PO (21:40)
[2024-03-16] MEDS: risperiDONE 0.5 MG TABLET 0.25 MG PO (21:41)
[2024-03-16] MEDS: ZONISAMIDE 100 MG CAPSULE 200 MG PO (21:41)
[2024-03-16] MEDS: carBAMazepine 200 MG TABLET PO (21:41)
[2024-03-16] MEDS: HEPARIN SOD INJ 5000 UNIT/ML VIAL SC (21:42)
[2024-03-17] VITALS (7 sets, daily range): BP systolic 133–161; BP diastolic 77–99; PULSE 68–99; RESP 14–20; TEMP 36.2–37.1; O2SAT 92–96
--- NOTE | 2024-03-17 00:19 | PC.NURSE ---
MD Mills made aware of BP 161/96, pt is asleep at this time, per MD to put order in.
[2024-03-17] MEDS: LABETALOL 100 MG TABLET PO (00:29)
[2024-03-17] MEDS: ONDANSETRON INJ 2 MG/ML INJ 2 ML 4 MG IV ×3 (04:03→21:55)
[2024-03-17] MEDS: SODIUM CHLORIDE 0.9% 1000 ML 1,000 ML 200 ML IV ×3 (05:05→23:47)
[2024-03-17] MEDS: HEPARIN SOD INJ 5000 UNIT/ML VIAL SC ×3 (05:05→21:15)
[2024-03-17] MEDS: LEVOTHYROXINE SODIUM 112 MCG TABLET PO (05:05)
--- NOTE | 2024-03-17 05:34 | PC.NURSE ---
MD Sidhu made aware that calcitonin inj not available at this time,pharmacy didnt bring this meds on the floor, okayed to re time this meds at 0900.
[2024-03-17 05:41] LABS: Basophils % (Auto) 0 % (0-2.5); Eosinophils % (Auto) 0 % (0-10); Hematocrit 27.7 % (36.0-46.0); Hemoglobin 8.9 g/dL (12.0-16.0); Immature Granulocytes % (Auto) 0 % (0-0); Immature Granulocytes Auto 0.03 Thou/mm3 (0.00-0.00); Lymphocytes # (Auto) 0.7 Thou/mm3 (1.0-4.8); Lymphocytes % (Auto) 8 % (10-50); Mean Corpuscular HGB Conc 32.1 g/dl (31.0-37.0); Mean Corpuscular Hemoglobin 27.4 pg (25.0-35.0); Mean Corpuscular Volume 85 fL (80-100); Monocytes # (Auto) 0.6 Thou/mm3 (0.0-0.8); Monocytes % (Auto) 7 % (0-12); Neutrophils % (Auto) 85 % (37-80); Nucleated Red Blood Cell % 0 /100 WBC (0); Platelet Count 123 Thou/mm3 (140-440); RDW Standard Deviation 41.1 fL (36.4-46.3); Red Blood Count 3.25 Miln/mm3 (4.00-5.20); White Blood Count 8.3 Thou/mm3 (3.6-11.0)
[2024-03-17 06:14] LABS: Alanine Aminotransferase 17 U/L (10-49); Albumin, Serum 3.8 gm/dL (3.4-4.8); Albumin/Globulin Ratio 1.7 (1.2-2.2); Alkaline Phosphatase 106 U/L (46-116); Anion Gap 6 (7-16); Aspartate Amino Transferase 13 U/L (0-34); BUN/Creatinine Ratio 17 Ratio (12-20); Bilirubin,Total 0.4 mg/dL (0.3-1.2); Blood Urea Nitrogen 33 mg/dL (9-23); Chloride 110 mMol/L (98-107); Cholesterol 164 mg/dL (132-200); Estimated Creatinine Clearance 27.9 mL/min (>60); Globulin 2.3 gm/dL (2.3-3.5); Glucose 114 mg/dL (74-106); HDL Cholesterol 54 mg/dL (40-60); LDL Cholesterol,Calculated 94 mg/dL (0-130); Magnesium 2.4 mg/dL (1.6-2.6); Osmolality,Calculated 296 (275-295); Phosphorous 2.6 mg/dL (2.4-5.1); Potassium 3.4 mMol/L (3.4-5.1); Sodium 145 mMol/L (136-145); Thyroid Stimulating Hormone 3.98 uIU/mL (0.55-4.78); Total Protein 6.1 gm/dL (5.7-8.2); Triglycerides 82 mg/dL (30-150); eGFR 28 See Note
[2024-03-17 06:19] LABS: Calcium 13.3 mg/dL (8.3-10.6); Calcium (Corrected) 13.5 mg/dL (8.5-10.1)
[2024-03-17] MEDS: levETIRAcetam 250 MG TABLET 500 MG PO ×2 (09:16→20:01)
[2024-03-17] MEDS: DOCUSATE SOD 100 MG CAPSULE PO (09:16)
[2024-03-17] MEDS: risperiDONE 0.5 MG TABLET 0.25 MG PO ×2 (09:16→20:01)
[2024-03-17] MEDS: PANTOPRAZOLE 40 MG TABLET PO (09:17)
[2024-03-17] MEDS: carBAMazepine 200 MG TABLET PO ×2 (09:17→20:02)
[2024-03-17] MEDS: CALCITONIN, SALMON SYNTH INJ 1 UNIT/0.005 ML VIAL 320 UNIT SC ×2 (09:18→20:02)
[2024-03-17] MEDS: ZONISAMIDE 100 MG CAPSULE 200 MG PO ×2 (09:18→20:01)
--- NOTE | 2024-03-17 10:31 | PD.NEPHCONS ---
History of Present Illness Data of Consult Consult date: 03/17/24 Requesting Physician: Lizzie Brown MD Primary Care Provider: Physician No Primary/Family Consult Narrative Reason for consult: Hypercalcemia, GABRIEL History of present illness: Chart review done as patient has developmental delay and includes giving any information. No family or care provider at bedside. Ms. Ac is a 63-year-old female with past medical history of developmental delay, seizure disorder, hypertension, hyperlipidemia, hypoparathyroidism, hypothyroidism, hypocalcemia, presented to the ED due to seizure-like activity. Apparently in the emergency department -- care provider stated patient had 4 episodes of seizures in the past 1 week. Patient has history of seizure disorder is seen by neurologist Dr. Elizondo, per caregiver, last seizure activity was more than 1 year ago. Seizures were described to last less than 45 minutes associated with nausea and 1 episode of vomiting, but denies incontinence, loss of consciousness. In the emergency department labs showed potassium 3.2, BUN 36, creatinine 2.2, calcium 16, magnesium 2 alk phos 519, TSH 7.14, urinalysis shows mild UTI, head CT negative. EKG normal, chest x-ray normal. In the emergency department she was given 1 g of Keppra. Normal saline fluid boluses were given for hypercalcemia and renal consultation was requested. 03/17/2024 patient currently seen in medical floor. Seizure precautions noted. Is developmentally delayed. Currently, off the bed. Sitter at bedside. cc:: cc: Lizzie Brown MD Review of Systems Review of Systems ROS Unobtainable: unobtainable due to mental status and unobtainable due to medical condition Past Medical History Past Medical History NEUROLOGIC: Positive Neurological Disorders, Seizures and Epilepsy CARDIAC: Positive Cardiac Disorders, Hypercholesterolemia and Hypertension; Negative Congestive Heart Failure RESPIRATORY: Negative Chronic Obstructive Pulmonary Disease (COPD) or Asthma GENITOURINARY: Negative Renal Disease REPRODUCTIVE: Negative Breast Cancer MUSCULOSKELETAL: Negative Musculoskeletal Disorders ENDOCRINE: Positive Hypothyroidism; Negative Diabetes Mellitus Type 1 or Diabetes Mellitus Type 2 OTHER HISTORY: Positive Falls; Negative Blood Transfusions, Blood Transfusion Reaction, Anesthesia Reactions, Clostridium Difficile, Cancer or Breast Cancer Family History FAMILY HISTORY: Positive Family Respiratory Disorders and Family Cardiac Disorders Surgical History SURGICAL: Positive Hip Sx (Right); Negative Endocrine Surgery or Ear Surgery Social History SMOKING STATUS: Never smoker Meds Home Medications and Allergies Home Medications ?Medication ?Instructions ?Recorded ?Confirmed ?Type calcitriol 0.25 mcg capsule 1 mcg PO QDAY 02/15/23 03/16/24 History carbamazepine 200 mg tablet 200 mg PO BID 02/15/23 03/16/24 History cholecalciferol (vitamin D3) 50 50 mcg PO QDAY 02/15/23 03/16/24 History mcg (2,000 unit) tablet levetiracetam 500 mg tablet 500 mg PO BID 02/15/23 03/16/24 History levothyroxine 112 mcg tablet 112 mcg PO ACBR 02/15/23 03/16/24 History losartan 50 mg tablet 50 mg PO QDAY 02/15/23 03/16/24 History magnesium oxide 400 mg (241.3 mg 400 mg PO QDAY 02/15/23 03/16/24 History magnesium) tablet oxybutynin chloride 5 mg tablet 5 mg PO QDAY 02/15/23 03/16/24 History risperidone 0.5 mg tablet 0.25 mg PO BID 02/15/23 03/16/24 History simvastatin 40 mg tablet 40 mg PO HS 02/15/23 03/16/24 History zonisamide 100 mg capsule 200 mg PO BID 02/15/23 03/16/24 History calcium 600 mg (as 600 tab PO BID 03/16/24 03/16/24 History carbonate)-vitamin D3 10 mcg (400 unit) tablet cetirizine 10 mg tablet 10 mg PO QDAY 03/16/24 03/16/24 History ferrous sulfate 325 mg (65 mg 325 mg PO QDAY 03/16/24 03/16/24 History iron) tablet (FeroSul) fluticasone propionate 50 2 spray intranasal QDAY 03/16/24 03/16/24 History mcg/actuation nasal spray,suspension hydroxyzine HCl 25 mg tablet 25 mg PO HS 03/16/24 03/16/24 History olopatadine 0.1 % eye drops 1 drp ophthalmic (eye) BID 03/16/24 03/16/24 History Allergies Allergy/AdvReac Type Severity Reaction Status Date / Time No Known Allergies Allergy Unverified 03/16/24 09:24 Exam Vital Signs Temp Pulse Resp BP Pulse Ox O2 Del Method 36.3 C 87 14 150/90 H 96 Room Air 03/17/24 08:00 03/17/24 08:00 03/17/24 08:00 03/17/24 08:00 03/17/24 08:00 03/17/24 08:00 Narrative Exam General: Patient seems to be comfortable-trying to ignore out of the bed Head and neck: Hearing and vision normal Cardiovascular: Regular rate and rhythm, no murmurs. Respiratory: Clear to Auscultation bilaterally, no wheezing, no crackles. Abdomen: Soft, non-tender, no palpable masses or organomegdaly. Extremities: No edema, normal peripheral pulses. Genitourinary: no suprapubic tenderness, absent costovertebral tenderness. Neurology: Patient alert although has developmental delay. Results Labs 03/17/24 05:10 03/17/24 05:10 Labs: Short CBC 03/16/24 03/17/24 Range/Units 10:17 05:10 WBC 5.8 8.3 D (3.6-11.0) Thou/mm3 Hgb 10.4 L 8.9 L (12.0-16.0) g/dL Hct 32.3 L 27.7 L (36.0-46.0) % Plt Count 142 123 L (140-440) Thou/mm3 BMP 03/16/24 03/17/24 10:17 05:10 Sodium 138 145 Potassium 3.2 L 3.4 Chloride 98 110 H Carbon Dioxide 33.2 H 29.0 BUN 36 H 33 H Creatinine 2.2 H 2.0 H Glucose 116 H 114 H Calcium 16.0 H* 13.3 H* D Cardiac Enzymes 03/16/24 Range/Units 10:17 Troponin I < 0.020 (0.0-0.045) ng/mL Liver Function 03/16/24 03/17/24 Range/Units 10:17 05:10 Total Bilirubin 0.3 0.4 (0.3-1.2) mg/dL AST 13 13 (0-34) U/L ALT 17 17 (10-49) U/L Alkaline Phosphatase 119 H 106 (46-116) U/L Albumin 4.5 3.8 D (3.4-4.8) gm/dL Urine 03/16/24 Range/Units 11:28 Urine Color Lt-Yellow (Lt Yel-Yel) Urine Clarity Clear (Clear/Hazy) Urine pH 6.5 (5.0-7.0) Ur Specific [place] 1.013 (1.001-1.035) Urine Protein Trace (Neg - Trace) Urine Glucose (UA) Negative (Negative) Assessment & Plan Additional Assessment & Plan Additional Plan: #GABRIEL-improving with IV fluids. Most likely prerenal azotemia from hypercalcemia, decreased p.o. intake. Baseline creatinine 0.8-1.0 Current creatinine 2.2-->2.0 Patient takes losartan at home we will hold at this time due to GABRIEL Continue IV fluids., Strict I&O's, renal ultrasound ordered. # Severe hypercalcemia Patient seems to be taking significant amount of calcitriol, calcium supplements, vitamin D3 which could be contributing to her severe hypercalcemia. Patient has history of hypoparathyroidism and hypocalcemia needing mL. Hold off on all of close and agree with IV fluid resuscitation and calcitonin. Slowly improving. #Seizure disorder -presented with breakthrough seizures. Dr Elizondo was consulted Currently on Keppra, carbamazepine, risperidone, zonisamide #Hx of Hypoparathyroidism PTH significantly suppressed. #Normocytic anemia hemoglobin 10.4, on ferrous sulfate #Hypertension Blood pressure acceptable. Losartan held #hyperlipidemia on atorvastatin 40mg HS #Hypothyroidism on levothyroxine Thank you Dr. Brown for allowing me to participate in the care of Ms. cA
[2024-03-17 11:08] LABS: Vitamin D 25 Hydroxy Total 36.6 ng/mL (7.3-40.2)
--- NOTE | 2024-03-17 13:11 | PD.RESPRO ---
Documentation for date of: 03/17/24 Subjective Subjective Interval history: Patient seen today-awake, alert. Vital signs significant for some high blood pressure systolic BP 150. No seizure activity reported overnight, however overnight patient's blood pressure was found to be elevated labetalol as needed added. Labs at this time shows improving calcium levels 13.5 today, improving creatinine 2.0. Tumor markers ordered CEA was negative, CA125 negative, pending CA 19-9. At this time at this time plan is to continue IV hydration and calcitonin, when kidney function improves plan for bisphosphonate therapy and bailey CT. Exam Vital Signs Temp Pulse Resp BP Pulse Ox O2 Del Method 98.3 F 82 19 138/99 H 96 Room Air 03/17/24 12:00 03/17/24 12:00 03/17/24 12:00 03/17/24 12:00 03/17/24 12:00 03/17/24 12:00 Narrative Exam Physical Exam GENERAL: NAD, developmental delay, obese HEENT: Moist mucosa. Eyes open, symmetrical, & clear CARDIO: Heart RRR, no obvious murmurs PULM: No noted coughing/dyspnea CTA B/L, no R/W/R GI: Abdomen soft, nondistended, no pain on palpation. BSx4 SKIN/MSK/EXT: No wounds/rashes/edema/amputations, no pain on palpation. Pedal pulses present B/L NEURO: able to move all 4 extremities Objective Labs 03/17/24 05:10 03/17/24 05:10 Labs: Laboratory Results - last 24 hr 03/16/24 03/16/24 03/16/24 10:17 11:28 16:38 WBC RBC Hgb Hct MCV MCH MCHC RDW Std Deviation Plt Count Neut % (Auto) Lymph % (Auto) [place] % (Auto) Eos % (Auto) Baso % (Auto) Neut # (Auto) Lymph # (Auto) [place] # (Auto) Eos # (Auto) Baso # (Auto) Immature Gran # (Auto) Absolute Nucleated RBC Immature Gran % Nucleated RBC % Sodium Potassium Chloride Carbon Dioxide Anion Gap BUN Creatinine Estim Creat Clear Calc eGFR BUN/Creatinine Ratio Glucose Calculated Osmolality Calcium Corrected Calcium Phosphorus 3.9 Magnesium Iron 119 TIBC 270 Iron Saturation 44 Unsat Iron Binding 151 L Total Bilirubin AST ALT Alkaline Phosphatase Total Protein Albumin Globulin Albumin/Globulin Ratio Triglycerides Cholesterol LDL Cholesterol, Calc HDL Cholesterol Cholesterol/HDL Ratio Carcinoembryonic Ag 1.4 CA 125 Antigen 10.0 25-OH Vitamin D Total TSH 7.14 H Free T4 0.89 PTH Intact 3.6 L Ur Collection Type Clean Catch Urine Color Lt-Yellow Urine Clarity Clear Urine pH 6.5 Ur Specific [place] 1.013 Urine Protein Trace Urine Glucose (UA) Negative Urine Ketones Negative Urine Blood Negative Urine Nitrite Positive Urine Bilirubin Negative Urine Urobilinogen (Auto) Negative Ur Leukocyte Esterase Negative Urine RBC 2 Urine WBC 5 Ur Squamous Epith Cells < 1 Urine Bacteria None Hyaline Casts 1 03/17/24 05:10 WBC 8.3 D RBC 3.25 L Hgb 8.9 L Hct 27.7 L MCV 85 MCH 27.4 MCHC 32.1 RDW Std Deviation 41.1 Plt Count 123 L Neut % (Auto) 85 H Lymph % (Auto) 8 L [place] % (Auto) 7 Eos % (Auto) 0 Baso % (Auto) 0 Neut # (Auto) 7.0 Lymph # (Auto) 0.7 L [place] # (Auto) 0.6 Eos # (Auto) 0.0 Baso # (Auto) 0.0 Immature Gran # (Auto) 0.03 H Absolute Nucleated RBC 0.00 Immature Gran % 0 Nucleated RBC % 0 Sodium 145 Potassium 3.4 Chloride 110 H Carbon Dioxide 29.0 Anion Gap 6 L BUN 33 H Creatinine 2.0 H Estim Creat Clear Calc 27.9 L eGFR 28 L BUN/Creatinine Ratio 17 Glucose 114 H Calculated Osmolality 296 H Calcium 13.3 H* D Corrected Calcium 13.5 H* D Phosphorus 2.6 Magnesium 2.4 Iron TIBC Iron Saturation Unsat Iron Binding Total Bilirubin 0.4 AST 13 ALT 17 Alkaline Phosphatase 106 Total Protein 6.1 Albumin 3.8 D Globulin 2.3 Albumin/Globulin Ratio 1.7 Triglycerides 82 Cholesterol 164 LDL Cholesterol, Calc 94 HDL Cholesterol 54 Cholesterol/HDL Ratio 3.0 L Carcinoembryonic Ag CA 125 Antigen 25-OH Vitamin D Total 36.6 TSH 3.98 D Free T4 PTH Intact Ur Collection Type Urine Color Urine Clarity Urine pH Ur Specific [place] Urine Protein Urine Glucose (UA) Urine Ketones Urine Blood Urine Nitrite Urine Bilirubin Urine Urobilinogen (Auto) Ur Leukocyte Esterase Urine RBC Urine WBC Ur Squamous Epith Cells Urine Bacteria Hyaline Casts Quality Measures Quality Measures VTE prophylaxis Assessment & Plan Assessment Current Active Medications: Generic Name Dose Route Start Last Admin Trade Name Medardoq PRN Reason Stop Dose Admin Acetaminophen 650 mg 03/16/24 16:05 Acetaminophen 325 Mg Tablet PO 04/15/24 16:04 Q6H PRN Fever >100.5 Acetaminophen 650 mg 03/16/24 16:05 Acetaminophen 325 Mg Tablet PO 04/15/24 16:04 Q6H PRN PAIN SCALE 1-3 (mild Atorvastatin Calcium 40 mg 03/16/24 21:00 03/16/24 21:40 Atorvastatin Calcium 20 Mg Tablet PO 04/15/24 20:59 40 mg HS MARKEL Administration Calcitonin Round O 320 unit 03/17/24 09:00 03/17/24 09:18 Calcitonin, Round O Synth Inj 1 Unit/0.005 Ml Vial SC 04/16/24 08:59 320 unit Q12H MARKEL Administration Carbamazepine 200 mg 03/16/24 21:00 03/17/24 09:17 Carbamazepine 200 Mg Tablet PO 04/15/24 20:59 200 mg BID MARKEL Administration Docusate Sodium 100 mg 03/17/24 09:00 03/17/24 09:16 Docusate Sod 100 Mg Capsule PO 04/16/24 08:59 100 mg QDAY MARKEL Administration Protocol Heparin Sodium (Porcine) 5,000 unit 03/16/24 22:00 03/17/24 05:05 Heparin Sod Inj 5000 Unit/Ml Vial SC 03/30/24 21:59 5,000 unit Q8HR MARKEL Administration Sodium Chloride 1,000 mls @ 200 mls/hr 03/16/24 17:14 03/17/24 09:24 Ns IV 04/15/24 17:13 200 mls/hr .Q5H MARKEL Administration Labetalol HCl 10 mg 03/17/24 00:19 Labetalol Inj 5 Mg/Ml Vial 20 Ml IVP 04/16/24 00:29 Q2H PRN SBP > 180 Levetiracetam 500 mg 03/16/24 21:00 03/17/24 09:16 Levetiracetam 250 Mg Tablet PO 04/15/24 20:59 500 mg BID MARKEL Administration Levothyroxine Sodium 112 mcg 03/17/24 06:00 03/17/24 05:05 Levothyroxine Sodium 112 Mcg Tablet PO 04/16/24 05:59 112 mcg ACBR MARKEL Administration Ondansetron HCl 4 mg 03/16/24 16:05 03/17/24 04:03 Ondansetron Inj 2 Mg/Ml Inj 2 Ml IV 04/15/24 16:04 4 mg Q6H PRN Administration NAUSEA OR VOMITING Protocol Pantoprazole Sodium 40 mg 03/17/24 09:00 03/17/24 09:17 Pantoprazole 40 Mg Tablet PO 04/16/24 08:59 40 mg QDAY MARKEL Administration Risperidone 0.25 mg 03/16/24 21:00 03/17/24 09:16 Risperidone 0.5 Mg Tablet PO 04/15/24 20:59 0.25 mg BID MARKEL Administration Zonisamide 200 mg 03/16/24 21:00 03/17/24 09:18 Zonisamide 100 Mg Capsule PO 04/15/24 20:59 200 mg BID MARKEL Administration Plan 63-year-old female with past medical history of developmental delay, seizure disorder, hypertension, hyperlipidemia, hypoparathyroidism, hypothyroidism, hypocalcemia, presented to the ED due to seizure-like activity. Per care provider patient had 4 episodes of seizures between Tuesday and last 1 being yesterday night 03/15/2024. Seizures were described to last less than 45 minutes associated with nausea and 1 episode of vomiting, but denies incontinence, loss of consciousness. Patient will be admitted for seizures likely secondary to hypercalcemia. #Seizure disorder #?Malignant hypercalcemia Likely secondary to cancer versus medication induced Calcium and corrected calcium are above 16, possibly cancer Patient has history of hypoparathyroidism and hypocalcemia Patient takes calcitriol and magnesium supplements Patient has hx of seizure disorder and grand mal seizures, last grand mal was >1 year ago had 4 episodes of seizure-like activity from Tuesday last episode was last night, with nausea, vomiting Per care nurse rn patient is weak, lethargic, and not very talkative, however on examination patient was energetic and talkative PTH levels low however patient has history of hypoparathyroidism 2 markers CEA negative, CA125 negative, Patient has had a mammograms and breast ultrasound showing BI-RADS 0 and latest one being BI-RADS 2 with benign findings Will speak to radiology to reevaluate these images for possible breast cancer -Aggressive IV fluids -On calcitonin -Bisphosphonates hold at this time due to GABRIEL -f/u CA19-9 -Consider bailey CT once kidney function improves -Resumed Keppra -Resumed carbamazepine -Resumed risperidone -Resumed zonisamide #GABRIEL-improving Baseline creatinine 0.8-1.0 Current creatinine 2.2-->2.0 Patient takes losartan at home we will hold at this time due to GABRIEL -On IV fluids -Renally dose meds -Avoid nephrotoxic meds -Nephrology consulted, appreciate recommendations #Normocytic anemia MCV 85, Baseline hemoglobin ~ 9 Current hemoglobin 10.4, patient takes at home ferrous sulfate -Iron panel ordered -Will monitor at this time #Hypertension #hyperlipidemia Patient takes losartan at home -atorvastatin 40mg HS -Will hold at this time due to GABRIEL #Hypothyroidism TSH NL -Resume levothyroxine as taken at home #Electrolyte disturbances #Hypermagnesemia #Hypokalemia -Replete as needed #Hx of Hypoparathyroidism Per chart review, PTH was ordered -Monitor at this time Case discussed with my attending Dr. Kevin Hamilton MD PGY-1 Disposition: Med telemetry Fluids: Normal saline Feeding: Regular diet Thrombo prophylaxis: Heparin Gastric Ulcer prophylaxis: Pantoprazole CODE STATUS: Full code
[2024-03-17] MEDS: ACETAMINOPHEN 325 MG TABLET 650 MG PO (14:31)
--- NOTE | 2024-03-17 15:24 | EKG_ITS ---
[facility] Test Date: 2024-03-17 Pat Name: RAJWINDER DRZ Department: Room: S378A Gender: Female Aircraft Maintenance Technician: MAYRA : 1960 Requested By: Pancho Hamilton Order Number: [id number] Reading MD: Pancho Hamilton Measurements Intervals [place] Rate: 71 P: 45 [place]: 180 QRS: -16 QRSD: 88 T: 10 QT: 316 QTc: 344 Interpretive Statements SINUS RHYTHM LOW QRS VOLTAGE IN PRECORDIAL LEADS [QRS DEFLECTION < 1.0 mV IN CHEST LEADS] MINIMAL VOLTAGE CRITERIA FOR LVH, CONSIDER NORMAL VARIANT [MEETS CRITERIA IN ONE OF: R(aVL), S(V1), R(V5), R(V5/V6)+S(V1)] POSSIBLE ANTERIOR MYOCARDIAL INFARCTION , OF INDETERMINATE AGE [30 ms Q WAVE IN V3/V4, OR R < 0.2 mV IN V4] Compared to ECG 03/16/2024 09:43:04 No significant changes /store/S0/[id number]/ecg/[id number].pdf
--- NOTE | 2024-03-17 15:26 | PC.NURSE ---
MD made aware that RN noticed aflutter on the tele monitor. pt is back in sinus. MD to place EKG orders
--- NOTE | 2024-03-17 17:51 | XR_ITS ---
Examination: Retroperitoneal ultrasound, complete Technique: Multiple high resolution grayscale images of the retroperitoneum obtained, including kidneys and bladder. Exam date and time:March 18, 2024 0456 hrs. Indications: Renal insufficiency on laboratory examination this week. Findings: Right kidney 10.9 x 3.9 x 5.0 cm renal cortex 1.4 cm Left kidney 9.8 x 4.4 x 4.5 cm cortex 1.3 cm No renal or ureteral calculi, no hydronephrosis No bladder mass or bladder calculi Bladder prevoid volume 1 91 cc Incidental note cholelithiasis Impression: No renal or ureteral calculi, no hydronephrosis Bilateral renal cortical thinning Cholelithiasis
[2024-03-17] MEDS: ATORVASTATIN CALCIUM 20 MG TABLET 40 MG PO (20:01)
[2024-03-18] VITALS (9 sets, daily range): BP systolic 127–163; BP diastolic 69–94; PULSE 69–93; RESP 14–20; TEMP 36.4–36.8; O2SAT 92–95
[2024-03-18] MEDS: LEVOTHYROXINE SODIUM 112 MCG TABLET PO (05:57)
[2024-03-18] MEDS: HEPARIN SOD INJ 5000 UNIT/ML VIAL SC ×3 (05:57→21:37)
[2024-03-18 06:22] LABS: Basophils % (Auto) 0 % (0-2.5); Eosinophils % (Auto) 0 % (0-10); Hematocrit 22.9 % (36.0-46.0); Immature Granulocytes % (Auto) 0 % (0-0); Immature Granulocytes Auto 0.03 Thou/mm3 (0.00-0.00); Lymphocytes # (Auto) 0.8 Thou/mm3 (1.0-4.8); Lymphocytes % (Auto) 12 % (10-50); Mean Corpuscular HGB Conc 31.9 g/dl (31.0-37.0); Mean Corpuscular Hemoglobin 27.5 pg (25.0-35.0); Mean Corpuscular Volume 86 fL (80-100); Monocytes # (Auto) 0.4 Thou/mm3 (0.0-0.8); Monocytes % (Auto) 6 % (0-12); Neutrophils # (Auto) 5.5 Thou/mm3 (1.8-7.7); Neutrophils % (Auto) 81 % (37-80); Nucleated Red Blood Cell % 0 /100 WBC (0); Platelet Count 94 Thou/mm3 (140-440); RDW Standard Deviation 42.5 fL (36.4-46.3); Red Blood Count 2.65 Miln/mm3 (4.00-5.20); White Blood Count 6.8 Thou/mm3 (3.6-11.0)
[2024-03-18] MEDS: SODIUM CHLORIDE 0.9% 1000 ML 1,000 ML 200 ML IV (06:23)
[2024-03-18 06:24] LABS: Hemoglobin 7.3 g/dL (12.0-16.0)
[2024-03-18 06:59] LABS: Alanine Aminotransferase 19 U/L (10-49); Albumin, Serum 3.6 gm/dL (3.4-4.8); Albumin/Globulin Ratio 1.8 (1.2-2.2); Alkaline Phosphatase 89 U/L (46-116); Anion Gap 8 (7-16); Aspartate Amino Transferase 13 U/L (0-34); BUN/Creatinine Ratio 13 Ratio (12-20); Bilirubin,Total 0.4 mg/dL (0.3-1.2); Blood Urea Nitrogen 24 mg/dL (9-23); Calcium 9.8 mg/dL (8.3-10.6); Calcium (Corrected) 10.1 mg/dL (8.5-10.1); Carbon Dioxide 24.9 mMol/L (20.0-31.0); Chloride 111 mMol/L (98-107); Creatinine (Component) 1.8 mg/dL (0.6-1.3); Glucose 93 mg/dL (74-106); Magnesium 1.6 mg/dL (1.6-2.6); Osmolality,Calculated 290 (275-295); Phosphorous 1.7 mg/dL (2.4-5.1); Sodium 144 mMol/L (136-145); Total Protein 5.6 gm/dL (5.7-8.2); eGFR 31 See Note
[2024-03-18 07:00] LABS: Potassium 2.7 mMol/L (3.4-5.1)
[2024-03-18] MEDS: POTASSIUM CHL 10 mEq IVPB 10 MEQ/100 ML BAG 100 MEQ IV ×4 (07:31→10:35)
[2024-03-18] MEDS: levETIRAcetam 250 MG TABLET 500 MG PO ×2 (08:08→21:36)
[2024-03-18] MEDS: risperiDONE 0.5 MG TABLET 0.25 MG PO ×2 (08:09→21:36)
[2024-03-18] MEDS: PANTOPRAZOLE 40 MG TABLET PO (08:09)
[2024-03-18] MEDS: DOCUSATE SOD 100 MG CAPSULE PO (08:09)
[2024-03-18] MEDS: carBAMazepine 200 MG TABLET PO ×2 (08:09→21:37)
[2024-03-18] MEDS: ZONISAMIDE 100 MG CAPSULE 200 MG PO ×2 (08:10→21:37)
[2024-03-18] MEDS: CALCITONIN, SALMON SYNTH INJ 1 UNIT/0.005 ML VIAL 320 UNIT SC (08:11)
--- NOTE | 2024-03-18 08:59 | PD.NEPHPROG ---
Documentation for date of: 03/18/24 Subjective Subjective Interval history: Chart review done as patient has developmental delay and includes giving any information. No family or care provider at bedside. Ms. Ac is a 63-year-old female with past medical history of developmental delay, seizure disorder, hypertension, hyperlipidemia, hypoparathyroidism, hypothyroidism, hypocalcemia, presented to the ED due to seizure-like activity. Apparently in the emergency department -- care provider stated patient had 4 episodes of seizures in the past 1 week. Patient has history of seizure disorder is seen by neurologist Dr. Elizondo, per caregiver, last seizure activity was more than 1 year ago. Seizures were described to last less than 45 minutes associated with nausea and 1 episode of vomiting, but denies incontinence, loss of consciousness. In the emergency department labs showed potassium 3.2, BUN 36, creatinine 2.2, calcium 16, magnesium 2 alk phos 519, TSH 7.14, urinalysis shows mild UTI, head CT negative. EKG normal, chest x-ray normal. In the emergency department she was given 1 g of Keppra. Normal saline fluid boluses were given for hypercalcemia and renal consultation was requested. 03/17/2024 patient currently seen in medical floor. Seizure precautions noted. Is developmentally delayed. Currently, off the bed. Sitter at bedside. 03/18/2023 patient currently seen in medical floor. She is developmentally delayed although alert and awake.Labs, medications reviewed. Blood pressure 157/86, heart rate 89. WBC 6.8, hemoglobin 7.3, platelets 94. Sodium 142, potassium 3.6, BUN 23, creatinine 1.7, phosphorus 1.6, calcium 9.8, magnesium 1.6, LFTs normal. Review of Systems Review of Systems Narrative Review of Systems: Patient denies any chest pain, shortness of breath denies any nausea, vomiting. Exam Vital Signs Temp Pulse Resp BP Pulse Ox O2 Del Method 36.7 C 79 14 141/82 H 94 L Room Air 03/18/24 08:00 03/18/24 08:00 03/18/24 08:00 03/18/24 08:00 03/18/24 08:00 03/18/24 08:00 Narrative Exam General: Patient seems to be comfortable Head and neck: Hearing and vision normal Cardiovascular: Regular rate and rhythm, no murmurs. Respiratory: Clear to Auscultation bilaterally, no wheezing, no crackles. Abdomen: Soft, non-tender, no palpable masses or organomegdaly. Extremities: No edema, normal peripheral pulses. Genitourinary: no suprapubic tenderness, absent costovertebral tenderness. Neurology: Patient alert, awake and responding to questions. has developmental delay. Objective Labs 03/18/24 05:47 03/18/24 12:40 Labs: Laboratory Results - last 24 hr 03/17/24 03/18/24 05:10 05:47 WBC 6.8 RBC 2.65 L Hgb 7.3 L Hct 22.9 L MCV 86 MCH 27.5 MCHC 31.9 RDW Std Deviation 42.5 Plt Count 94 L D Neut % (Auto) 81 H Lymph % (Auto) 12 [place] % (Auto) 6 Eos % (Auto) 0 Baso % (Auto) 0 Neut # (Auto) 5.5 Lymph # (Auto) 0.8 L [place] # (Auto) 0.4 Eos # (Auto) 0.0 Baso # (Auto) 0.0 Immature Gran # (Auto) 0.03 H Absolute Nucleated RBC 0.00 Immature Gran % 0 Nucleated RBC % 0 Sodium 144 Potassium 2.7 L* D Chloride 111 H Carbon Dioxide 24.9 Anion Gap 8 BUN 24 H Creatinine 1.8 H Estim Creat Clear Calc 31.0 L eGFR 31 L BUN/Creatinine Ratio 13 Glucose 93 Calculated Osmolality 290 Calcium 9.8 D Corrected Calcium 10.1 D Phosphorus 1.7 L Magnesium 1.6 Total Bilirubin 0.4 AST 13 ALT 19 Alkaline Phosphatase 89 Total Protein 5.6 L Albumin 3.6 Globulin 2.0 L Albumin/Globulin Ratio 1.8 25-OH Vitamin D Total 36.6 Assessment & Plan Additional Assessment & Plan Additional Plan: #GABRIEL-improving with IV fluids. Most likely prerenal azotemia from hypercalcemia, decreased p.o. intake. Baseline creatinine 0.8-1.0 Current creatinine 2.2-->2.0--1.7 Patient takes losartan at home we will hold at this time due to GABRIEL Continue IV fluids., Strict I&O's, renal ultrasound ordered. # Severe hypercalcemia Patient seems to be taking significant amount of calcitriol, calcium supplements, vitamin D3 which could be contributing to her severe hypercalcemia. Patient has history of hypoparathyroidism and hypocalcemia needing supplements. Today her calcium levels markedly dropped to 9.8. Hold off on calcitonin, IV fluids. Calcium is going to go low. Phosphorus low at 1.6, magnesium 1.6 which was replaced. #Seizure disorder -presented with breakthrough seizures. Dr Elizondo was consulted Currently on Keppra, carbamazepine, risperidone, zonisamide #Hx of Hypoparathyroidism PTH significantly suppressed. #Normocytic anemia hemoglobin 10.4, on ferrous sulfate #Hypertension Blood pressure acceptable. Losartan held #hyperlipidemia on atorvastatin 40mg HS #Hypothyroidism on levothyroxine Thank you Dr. Brown for allowing me to participate in the care of Ms. Ac
[2024-03-18] MEDS: NAPH,KPH MBDB 1 PACKET (1.5 GM) PO (10:53)
[2024-03-18] MEDS: cefTRIAXone/D5w 1gm IV premix 50 ML IV (10:53)
--- NOTE | 2024-03-18 11:45 | PC.SS ---
Plodder Operator (SHEREE) Priyanka attempted to contact patient's conservator, Zuly Negron at [phone]. SHEREE left a generic voicemail for Zuly to call back. Per EMR, patient resides at [facility]. Patient is probate conserved by his niece, Zuly Negron. Patient's PCP is Sirena Sandhu at [facility]. Patient is connected to [facility], his director of casework is Mitra Cornejo.
[2024-03-18 13:36] LABS: Albumin, Serum 3.7 gm/dL (3.4-4.8); Anion Gap 8 (7-16); BUN/Creatinine Ratio 14 Ratio (12-20); Blood Urea Nitrogen 23 mg/dL (9-23); Calcium 9.6 mg/dL (8.3-10.6); Calcium (Corrected) 9.8 mg/dL (8.5-10.1); Carbon Dioxide 24.3 mMol/L (20.0-31.0); Chloride 110 mMol/L (98-107); Creatinine (Component) 1.7 mg/dL (0.6-1.3); Estimated Creatinine Clearance 32.8 mL/min (>60); Glucose 119 mg/dL (74-106); Osmolality,Calculated 287 (275-295); Phosphorous 1.6 mg/dL (2.4-5.1); Potassium 3.6 mMol/L (3.4-5.1); Sodium 142 mMol/L (136-145); eGFR 33 See Note
--- NOTE | 2024-03-18 19:52 | ESPR_ITS ---
Documentation for date of: 03/18/24 Subjective Subjective Interval history: Patient evaluated bedside, comfortably sleeping in bed, easily arousable, seizure precautions in place, no reported seizure activity overnight. Noted continued improvement in serum creatinine with IV fluids, serum calcium now within normal limits, per nephrology recommendations were discontinued calcitonin and aggressive IV fluid resuscitation due to concern for hypocalcemia now. Of note, patient's last mammogram showed BI-RADS Category 2 benign findings, recommending follow-up, will reach out to radiologist Dr. Morales, if any mass can be identified for biopsy. Exam Vital Signs Temp Pulse Resp BP Pulse Ox O2 Del Method 98.3 F 89 18 157/86 H 94 L Room Air 03/18/24 16:00 03/18/24 16:00 03/18/24 16:00 03/18/24 16:00 03/18/24 16:03/18/24 16:00 Narrative Exam General: Patient seems to be comfortable Head and neck: Hearing and vision normal Cardiovascular: Regular rate and rhythm, no murmurs. Respiratory: Clear to Auscultation bilaterally, no wheezing, no crackles. Abdomen: Soft, non-tender, no palpable masses or organomegdaly. Extremities: No edema, normal peripheral pulses. Genitourinary: no suprapubic tenderness, absent costovertebral tenderness. Neurology: Patient alert, awake and responding to questions. has developmental delay. Objective Labs 03/18/24 05:47 03/18/24 12:40 Labs: Laboratory Results - last 24 hr 03/18/24 03/18/24 05:47 12:40 WBC 6.8 RBC 2.65 L Hgb 7.3 L Hct 22.9 L MCV 86 MCH 27.5 MCHC 31.9 RDW Std Deviation 42.5 Plt Count 94 L D Neut % (Auto) 81 H Lymph % (Auto) 12 [place] % (Auto) 6 Eos % (Auto) 0 Baso % (Auto) 0 Neut # (Auto) 5.5 Lymph # (Auto) 0.8 L [place] # (Auto) 0.4 Eos # (Auto) 0.0 Baso # (Auto) 0.0 Immature Gran # (Auto) 0.03 H Absolute Nucleated RBC 0.00 Immature Gran % 0 Nucleated RBC % 0 Sodium 144 142 Potassium 2.7 L* D 3.6 D Chloride 111 H 110 H Carbon Dioxide 24.9 24.3 Anion Gap 8 8 BUN 24 H 23 Creatinine 1.8 H 1.7 H Estim Creat Clear Calc 31.0 L 32.8 L eGFR 31 L 33 L BUN/Creatinine Ratio 13 14 Glucose 93 119 H Calculated Osmolality 290 287 Calcium 9.8 D 9.6 Corrected Calcium 10.1 D 9.8 Phosphorus 1.7 L 1.6 L Magnesium 1.6 Total Bilirubin 0.4 AST 13 ALT 19 Alkaline Phosphatase 89 Total Protein 5.6 L Albumin 3.6 3.7 Globulin 2.0 L Albumin/Globulin Ratio 1.8 Quality Measures Quality Measures none Assessment & Plan Assessment Current Active Medications: Generic Name Dose Route Start Last Admin Trade Name Freq PRN Reason Stop Dose Admin Acetaminophen 650 mg 03/16/24 16:05 Acetaminophen 325 Mg Tablet PO 04/15/24 16:04 Q6H PRN Fever >100.5 Acetaminophen 650 mg 03/16/24 16:05 03/17/24 14:31 Acetaminophen 325 Mg Tablet PO 04/15/24 16:04 650 mg Q6H PRN Administration PAIN SCALE 1-3 (mild Atorvastatin Calcium 40 mg 03/16/24 21:00 03/17/24 20:01 Atorvastatin Calcium 20 Mg Tablet PO 04/15/24 20:59 40 mg HS MARKEL Administration Carbamazepine 200 mg 03/16/24 21:00 03/18/24 08:09 Carbamazepine 200 Mg Tablet PO 04/15/24 20:59 200 mg BID MARKEL Administration Docusate Sodium 100 mg 03/17/24 09:00 03/18/24 08:09 Docusate Sod 100 Mg Capsule PO 04/16/24 08:59 100 mg QDAY MARKEL Administration Protocol Heparin Sodium (Porcine) 5,000 unit 03/16/24 22:00 03/18/24 13:28 Heparin Sod Inj 5000 Unit/Ml Vial SC 03/30/24 21:59 5,000 unit Q8HR MARKEL Administration Ceftriaxone Sodium/Dextrose 50 mls @ 100 mls/hr 03/18/24 09:42 03/18/24 10:53 Rocephin/D5w 1gm Iv Premix IV 03/25/24 09:41 100 mls/hr QDAY MARKEL Administration Labetalol HCl 10 mg 03/17/24 00:19 Labetalol Inj 5 Mg/Ml Vial 20 Ml IVP 04/16/24 00:29 Q2H PRN SBP > 180 Levetiracetam 500 mg 03/16/24 21:00 03/18/24 08:08 Levetiracetam 250 Mg Tablet PO 04/15/24 20:59 500 mg BID MARKEL Administration Levothyroxine Sodium 112 mcg 03/17/24 06:00 03/18/24 05:57 Levothyroxine Sodium 112 Mcg Tablet PO 04/16/24 05:59 112 mcg ACBR MARKEL Administration Ondansetron HCl 4 mg 03/16/24 16:05 03/17/24 21:55 Ondansetron Inj 2 Mg/Ml Inj 2 Ml IV 04/15/24 16:04 4 mg Q6H PRN Administration NAUSEA OR VOMITING Protocol Pantoprazole Sodium 40 mg 03/17/24 09:00 03/18/24 08:09 Pantoprazole 40 Mg Tablet PO 04/16/24 08:59 40 mg QDAY MARKEL Administration Risperidone 0.25 mg 03/16/24 21:00 03/18/24 08:09 Risperidone 0.5 Mg Tablet PO 04/15/24 20:59 0.25 mg BID MARKEL Administration Zonisamide 200 mg 03/16/24 21:00 03/18/24 08:10 Zonisamide 100 Mg Capsule PO 04/15/24 20:59 200 mg BID MARKEL Administration Plan 63-year-old female with past medical history of developmental delay, seizure disorder, hypertension, hyperlipidemia, hypoparathyroidism, hypothyroidism, hypocalcemia, presented to the ED due to seizure-like activity. Per care provider patient had 4 episodes of seizures between Tuesday and last 1 being yesterday night 03/15/2024. Seizures were described to last less than 45 minutes associated with nausea and 1 episode of vomiting, but denies incontinence, loss of consciousness. Patient will be admitted for seizures likely secondary to hypercalcemia. #Seizure disorder #?Malignant hypercalcemia Likely secondary to cancer versus medication induced Calcium and corrected calcium are above 16, possibly cancer Patient has history of hypoparathyroidism and hypocalcemia Patient takes calcitriol and magnesium supplements Patient has hx of seizure disorder and grand mal seizures, last grand mal was >1 year ago had 4 episodes of seizure-like activity from Tuesday last episode was last night, with nausea, vomiting Per health care facility administrator patient is weak, lethargic, and not very talkative, however on examination patient was energetic and talkative PTH levels low however patient has history of hypoparathyroidism 2 markers CEA negative, CA125 negative, Patient has had a mammograms and breast ultrasound showing BI-RADS 0 and latest one being BI-RADS 2 with benign findings Will speak to radiology to reevaluate these images for possible breast cancer -Aggressive IV fluids and calcitonin now discontinued. -Bisphosphonates hold at this time due to GABRIEL -f/u CA19-9 -Consider bailey CT once kidney function improves -Resumed Keppra -Resumed carbamazepine -Resumed risperidone -Resumed zonisamide #GABRIEL-improving Baseline creatinine 0.8-1.0 Current creatinine 2.2-->2.0-->1.7 Patient takes losartan at home we will hold at this time due to GABRIEL -On IV fluids -Renally dose meds -Avoid nephrotoxic meds -Nephrology consulted, appreciate recommendations #Normocytic anemia MCV 85, Baseline hemoglobin ~ 9 Current hemoglobin 10.4, patient takes at home ferrous sulfate -Iron panel ordered -Will monitor at this time #Hypertension #hyperlipidemia Patient takes losartan at home -atorvastatin 40mg HS -Will hold at this time due to GABRIEL #Hypothyroidism TSH NL -Resume levothyroxine as taken at home #Electrolyte disturbances #Hypermagnesemia #Hypokalemia -Replete as needed #Hx of Hypoparathyroidism Per chart review, PTH was ordered -Monitor at this time Case discussed with my attending Dr. Kevin chavez [email or web address] Disposition: Med telemetry Fluids: Normal saline Feeding: Regular diet Thrombo prophylaxis: Heparin Gastric Ulcer prophylaxis: Pantoprazole CODE STATUS: Full code
[2024-03-18] MEDS: ATORVASTATIN CALCIUM 20 MG TABLET 40 MG PO (21:36)
[2024-03-19] VITALS (7 sets, daily range): BP systolic 122–167; BP diastolic 63–94; PULSE 80–102; RESP 18–26; TEMP 36.3–37; O2SAT 91–99
[2024-03-19] MEDS: LEVOTHYROXINE SODIUM 112 MCG TABLET PO (05:24)
[2024-03-19] MEDS: HEPARIN SOD INJ 5000 UNIT/ML VIAL SC (05:24)
[2024-03-19 05:59] LABS: Basophils % (Auto) 0 % (0-2.5); Eosinophils % (Auto) 0 % (0-10); Hematocrit 23.7 % (36.0-46.0); Immature Granulocytes % (Auto) 1 % (0-0); Immature Granulocytes Auto 0.05 Thou/mm3 (0.00-0.00); Lymphocytes # (Auto) 1.1 Thou/mm3 (1.0-4.8); Lymphocytes % (Auto) 13 % (10-50); Mean Corpuscular HGB Conc 32.5 g/dl (31.0-37.0); Mean Corpuscular Hemoglobin 27.1 pg (25.0-35.0); Mean Corpuscular Volume 84 fL (80-100); Monocytes # (Auto) 0.5 Thou/mm3 (0.0-0.8); Monocytes % (Auto) 6 % (0-12); Neutrophils # (Auto) 7.1 Thou/mm3 (1.8-7.7); Neutrophils % (Auto) 81 % (37-80); Nucleated Red Blood Cell % 0 /100 WBC (0); Platelet Count 109 Thou/mm3 (140-440); RDW Standard Deviation 41.1 fL (36.4-46.3); Red Blood Count 2.84 Miln/mm3 (4.00-5.20); White Blood Count 8.8 Thou/mm3 (3.6-11.0)
[2024-03-19 06:02] LABS: Hemoglobin 7.7 g/dL (12.0-16.0)
[2024-03-19 06:31] LABS: Alanine Aminotransferase 24 U/L (10-49); Albumin, Serum 3.4 gm/dL (3.4-4.8); Albumin/Globulin Ratio 1.5 (1.2-2.2); Alkaline Phosphatase 94 U/L (46-116); Anion Gap 9 (7-16); Aspartate Amino Transferase 24 U/L (0-34); BUN/Creatinine Ratio 11 Ratio (12-20); Bilirubin,Total 0.3 mg/dL (0.3-1.2); Blood Urea Nitrogen 17 mg/dL (9-23); Calcium 9.3 mg/dL (8.3-10.6); Calcium (Corrected) 9.8 mg/dL (8.5-10.1); Carbon Dioxide 24.1 mMol/L (20.0-31.0); Chloride 109 mMol/L (98-107); Creatinine (Component) 1.5 mg/dL (0.6-1.3); Estimated Creatinine Clearance 37.2 mL/min (>60); Globulin 2.3 gm/dL (2.3-3.5); Glucose 102 mg/dL (74-106); Magnesium 1.3 mg/dL (1.6-2.6); Osmolality,Calculated 284 (275-295); Potassium 2.8 mMol/L (3.4-5.1); Sodium 142 mMol/L (136-145); Total Protein 5.7 gm/dL (5.7-8.2); eGFR 39 See Note
[2024-03-19] MEDS: NAPH,KPH MBDB 1 PACKET (1.5 GM) PO (09:26)
[2024-03-19] MEDS: risperiDONE 0.5 MG TABLET 0.25 MG PO ×2 (09:27→20:38)
[2024-03-19] MEDS: POTASSIUM CHLORIDE 10% 20 MEQ/15 ML UDC 40 MEQ GT (09:27)
[2024-03-19] MEDS: cefTRIAXone/D5w 1gm IV premix 50 ML IV (09:27)
[2024-03-19] MEDS: levETIRAcetam 250 MG TABLET 500 MG PO ×2 (09:31→20:38)
[2024-03-19] MEDS: carBAMazepine 200 MG TABLET PO ×2 (09:31→20:37)
[2024-03-19] MEDS: PANTOPRAZOLE 40 MG TABLET PO (09:31)
[2024-03-19] MEDS: DOCUSATE SOD 100 MG CAPSULE PO (09:31)
[2024-03-19] MEDS: POT PHOS 15 mMol in NS 250 ML 15 MMOL/250 ML BAG 62.5 MMOL IV ×2 (10:23→14:46)
[2024-03-19] MEDS: Magnesium Sulfate 4 GM Ivpb 4 GM/50 ML BAG IV (10:25)
--- NOTE | 2024-03-19 12:33 | PC.SS ---
Rounding: Pt receiving electrolytes, pending labs
[2024-03-19] MEDS: Magnesium Sulfate 2 GM Ivpb 2 GM/50 ML BAG IV (13:42)
--- NOTE | 2024-03-19 14:22 | PC.SS ---
Addendum entered by Bianca Louise 03/19/24 14:38: SS consulted ED CC Al who stated if assistance is needed for transport to call him at [phone] by [phone] as he is off at 1930. NAEEM Arnold made aware Original Note: SS spoke to [facility], [place] [phone] who stated if pt is DC before 7pm she would be able to pick her up. If pt is DC after 1900 they would need transportation to be set up. SS updated, RAMANDEEP Hernandez and NAEEM Arnold.
--- NOTE | 2024-03-19 14:52 | PD.RESDS ---
Planned Discharge Date 03/19/24 DS: Providers Provider Date of admission: 03/16/24 16:11 Primary care physician: Physician No Primary/Family Admitting Provider: Lizzie Brown MD Attending Provider on Admission: Lizzie Brown MD Consults: 03/17/24 06:00 Consult to Nephrology Stat Comment: Consulting Provider: Stephanie Francis Attending Provider on DC: Pancho Hamilton MD Discharging Provider: Pancho Hamilton MD Hospital Course Hospital Course Hospital course: Patient evaluated bedside, comfortably sleeping in bed, easily arousable, seizure precautions in place, no reported seizure activity overnight. Noted continued improvement in serum creatinine with IV fluids, serum calcium now within normal limits, per nephrology recommendations were discontinued calcitonin and aggressive IV fluid resuscitation due to concern for hypocalcemia now. Of note, patient's last mammogram showed BI-RADS Category 2 benign findings, recommending follow-up, will reach out to radiologist Dr. Morales, if any mass can be identified for biopsy. Time Spent with Patient Time attestation: Total time spent providing and/or coordinating discharge services: Exam Vital Signs Temp Pulse Resp BP Pulse Ox O2 Del Method O2 Flow Rate 97.7 F 93 18 167/94 H 95 Nasal Cannula 3.5 03/19/24 12:00 03/19/24 12:00 03/19/24 12:00 03/19/24 12:00 03/19/24 12:00 03/19/24 12:00 03/19/24 12:00 Discharge Plan Plan Patient condition on transfer: Stable Care Plan Goals: Patient found with very high calcium on admission most likely related to supplementation patient is taken, however possibility of cancer remains, in view of the patients abnormal mammograms, recommend follow up with Oncology to evaluate for cancer. Continue 5 more days of antibiotics for E. coli UTI. Recommend to discontinue calcium and vitamin D supplements including calcitriol, vitamin D 3. Recommend follow up with her primary care physician within 3-5 days of discharge. In case of worsening symptoms please return to the emergency room. Prescriptions/Referrals Prescriptions/Med Rec: New cephalexin 500 mg capsule 500 mg PO BID Qty: 10 0RF Continued cetirizine 10 mg Tablet 10 mg PO QDAY ferrous sulfate [FeroSul] 325 mg (65 mg iron) Tablet 325 mg PO QDAY olopatadine 0.1 % drops 1 drp OPHTHALMIC (EYE) BID hydroxyzine HCl 25 mg tablet 25 mg PO HS fluticasone propionate 50 mcg/actuation [place],Suspension 2 spray INTRANASAL QDAY Rx Instructions: administer into each nostril levothyroxine 112 mcg tablet 112 mcg PO ACBR losartan 50 mg tablet 50 mg PO QDAY levetiracetam 500 mg tablet 500 mg PO BID simvastatin 40 mg tablet 40 mg PO HS zonisamide 100 mg capsule 200 mg PO BID carbamazepine 200 mg tablet 200 mg PO BID magnesium oxide 400 mg (241.3 mg magnesium) tablet 400 mg PO QDAY oxybutynin chloride 5 mg tablet 5 mg PO QDAY risperidone 0.5 mg tablet 0.25 mg PO BID Rx Instructions: 0.25 mg po AM & HS Discontinued calcium carbonate-vitamin D3 600 mg-10 mcg (400 unit) tablet 600 tab PO BID calcitriol 0.25 mcg capsule 1 mcg PO QDAY cholecalciferol (vitamin D3) 50 mcg (2,000 unit) tablet 50 mcg PO QDAY Referrals: No Primary/Family,Physician [Primary Care Provider] - Patient/Caregiver Discharge Instructions Print Language: Moldovan Discharge Order Discharge Orders: Discharge (Routine); Ordered 03/19/24 Ordered By: Pancho Hamilton
[2024-03-19] MEDS: Magnesium Sulfate 1 gm Ivpb 1 GM/100 ML BAG IV (17:03)
--- NOTE | 2024-03-19 17:36 | ESPR_ITS ---
Documentation for date of: 03/19/24 Subjective Subjective Interval history: Patient seen today at the bedside fine awake, alert, oriented x 3. No overnight events reported. States no active complaints wants applesauce. Vital signs stable at this time. Labs significant for various electrolyte abnormalities including hypokalemia hypomagnesemia all which are was repleted. Plan for discharge today however patient had poor IV access so electrolyte repletion was delayed. Follow-up renal panel and anticipate discharge in the next 24 to 48 hours. Exam Vital Signs Temp Pulse Resp BP Pulse Ox O2 Del Method O2 Flow Rate 98.6 F 102 H 18 151/86 H 92 L Nasal Cannula 1 03/19/24 16:00 03/19/24 16:00 03/19/24 16:00 03/19/24 16:00 03/19/24 16:00 03/19/24 16:03/19/24 16:00 Narrative Exam Physical Exam: General: Patient seems to be comfortable Head and neck: Hearing and vision normal Cardiovascular: Regular rate and rhythm, no murmurs. Respiratory: Clear to Auscultation bilaterally, no wheezing, no crackles. Abdomen: Soft, non-tender, no palpable masses or organomegdaly. Extremities: No edema, normal peripheral pulses. Genitourinary: no suprapubic tenderness, absent costovertebral tenderness. Neurology: Patient alert, awake and responding to questions. has developmental delay. Objective Labs 03/19/24 04:54 03/19/24 04:54 Labs: Laboratory Results - last 24 hr 03/19/24 04:54 WBC 8.8 RBC 2.84 L Hgb 7.7 L Hct 23.7 L MCV 84 MCH 27.1 MCHC 32.5 RDW Std Deviation 41.1 Plt Count 109 L Neut % (Auto) 81 H Lymph % (Auto) 13 [place] % (Auto) 6 Eos % (Auto) 0 Baso % (Auto) 0 Neut # (Auto) 7.1 Lymph # (Auto) 1.1 [place] # (Auto) 0.5 Eos # (Auto) 0.0 Baso # (Auto) 0.0 Immature Gran # (Auto) 0.05 H Absolute Nucleated RBC 0.00 Immature Gran % 1 H Nucleated RBC % 0 Sodium 142 Potassium 2.8 L D Chloride 109 H Carbon Dioxide 24.1 Anion Gap 9 BUN 17 Creatinine 1.5 H Estim Creat Clear Calc 37.2 L eGFR 39 L BUN/Creatinine Ratio 11 L Glucose 102 Calculated Osmolality 284 Calcium 9.3 Corrected Calcium 9.8 Phosphorus 1.0 L Magnesium 1.3 L Total Bilirubin 0.3 AST 24 ALT 24 Alkaline Phosphatase 94 Total Protein 5.7 Albumin 3.4 Globulin 2.3 Albumin/Globulin Ratio 1.5 Quality Measures Quality Measures none Assessment & Plan Assessment Current Active Medications: Generic Name Dose Route Start Last Admin Trade Name Freq PRN Reason Stop Dose Admin Acetaminophen 650 mg 03/16/24 16:05 Acetaminophen 325 Mg Tablet PO 04/15/24 16:04 Q6H PRN Fever >100.5 Acetaminophen 650 mg 03/16/24 16:05 03/17/24 14:31 Acetaminophen 325 Mg Tablet PO 04/15/24 16:04 650 mg Q6H PRN Administration PAIN SCALE 1-3 (mild Atorvastatin Calcium 40 mg 03/16/24 21:00 03/18/24 21:36 Atorvastatin Calcium 20 Mg Tablet PO 04/15/24 20:59 40 mg HS MARKEL Administration Carbamazepine 200 mg 03/16/24 21:00 03/19/24 09:31 Carbamazepine 200 Mg Tablet PO 04/15/24 20:59 200 mg BID MARKEL Administration Docusate Sodium 100 mg 03/17/24 09:00 03/19/24 09:31 Docusate Sod 100 Mg Capsule PO 04/16/24 08:59 100 mg QDAY MARKEL Administration Protocol Heparin Sodium (Porcine) 5,000 unit 03/16/24 22:00 03/19/24 17:02 Heparin Sod Inj 5000 Unit/Ml Vial SC 03/30/24 21:59 Not Given Q8HR MARKEL Ceftriaxone Sodium/Dextrose 50 mls @ 100 mls/hr 03/18/24 09:42 03/19/24 09:27 Rocephin/D5w 1gm Iv Premix IV 03/25/24 09:41 100 mls/hr QDAY MARKEL Administration Labetalol HCl 10 mg 03/17/24 00:19 Labetalol Inj 5 Mg/Ml Vial 20 Ml IVP 04/16/24 00:29 Q2H PRN SBP > 180 Levetiracetam 500 mg 03/16/24 21:00 03/19/24 09:31 Levetiracetam 250 Mg Tablet PO 04/15/24 20:59 500 mg BID MARKEL Administration Levothyroxine Sodium 112 mcg 03/17/24 06:00 03/19/24 05:24 Levothyroxine Sodium 112 Mcg Tablet PO 04/16/24 05:59 112 mcg ACBR MARKEL Administration Ondansetron HCl 4 mg 03/16/24 16:05 03/17/24 21:55 Ondansetron Inj 2 Mg/Ml Inj 2 Ml IV 04/15/24 16:04 4 mg Q6H PRN Administration NAUSEA OR VOMITING Protocol Pantoprazole Sodium 40 mg 03/17/24 09:00 03/19/24 09:31 Pantoprazole 40 Mg Tablet PO 04/16/24 08:59 40 mg QDAY MARKEL Administration Risperidone 0.25 mg 03/16/24 21:00 03/19/24 09:27 Risperidone 0.5 Mg Tablet PO 04/15/24 20:59 0.25 mg BID MARKEL Administration Zonisamide 200 mg 03/16/24 21:00 03/19/24 10:28 Zonisamide 100 Mg Capsule PO 04/15/24 20:59 Not Given BID MARKEL Plan 63-year-old female with past medical history of developmental delay, seizure disorder, hypertension, hyperlipidemia, hypoparathyroidism, hypothyroidism, hypocalcemia, presented to the ED due to seizure-like activity. Per care provider patient had 4 episodes of seizures between Tuesday and last 1 being yesterday night 03/15/2024. Seizures were described to last less than 45 minutes associated with nausea and 1 episode of vomiting, but denies incontinence, loss of consciousness. Patient will be admitted for seizures likely secondary to hypercalcemia. #Seizure disorder #hypercalcemia-resolved Likely secondary to cancer versus medication induced Calcium and corrected calcium are above 16, possibly cancer Patient has history of hypoparathyroidism and hypocalcemia Patient takes calcitriol and magnesium supplements Patient has hx of seizure disorder and grand mal seizures, last grand mal was >1 year ago had 4 episodes of seizure-like activity from Tuesday last episode was last night, with nausea, vomiting Per home health care provider patient is weak, lethargic, and not very talkative, however on examination patient was energetic and talkative PTH levels low however patient has history of hypoparathyroidism 2 markers CEA negative, CA125 negative, Patient has had a mammograms and breast ultrasound showing BI-RADS 0 and latest one being BI-RADS 2 with benign findings Will speak to radiology to reevaluate these images for possible breast cancer -f/u [id number] -Consider bailey CT once kidney function improves -Resumed Keppra -Resumed carbamazepine -Resumed risperidone -Resumed zonisamide #GABRIEL-improving Baseline creatinine 0.8-1.0 Current creatinine 2.2-->2.0-->1.7-->1.5 Patient takes losartan at home we will hold at this time due to GABRIEL -Renally dose meds -Avoid nephrotoxic meds -Nephrology consulted, appreciate recommendations #Normocytic anemia MCV 85, Baseline hemoglobin ~ 9 Current hemoglobin 10.4, patient takes at home ferrous sulfate -Will monitor at this time #Hypertension #hyperlipidemia Patient takes losartan at home -atorvastatin 40mg HS -Will hold at this time due to GABRIEL #Hypothyroidism TSH NL -Resume levothyroxine as taken at home #Electrolyte disturbances #Hypermagnesemia #Hypokalemia -Replete as needed #Hx of Hypoparathyroidism Per chart review, PTH was ordered -Monitor at this time Case discussed with my senior Dr. Quintero PGY-[address] Kevin Hamilton MD PGY-1 Disposition: Medsurg Fluids: None Feeding: regular Thrombo prophylaxis: Heparin Gastric Ulcer prophylaxis: Pantoprazole CODE STATUS: Full code Senior resident attestation: Patient evaluated and examined at the bedside, Pertinent labs include hemoglobin 7.7, compared to hemoglobin 10.4 on admission, also noted consistent drop in platelets, likely dilutional anemia given aggressive IV rehydration due to hypercalcemia. Also noted hypokalemia, hypomagnesemia and hypophosphatemia, IV electrolyte replenishment was done, repeat renal function test ordered for later in the afternoon after IV replenishment. Noted continuous improvement in kidney function BUN 17 and creatinine 1.5. Anticipate discharge tomorrow in the morning. Will discontinue calcitriol and vitamin D supplements on discharge. 1 seizure disorder 2 hypercalcemia 3 hypokalemia 4 hypomagnesemia 5 hypophosphatemia 6 history of hypoparathyroidism and hypocalcemia plan of care discussed with rest of the team including my attending physician, except as noted. Ingrid PGY2
[2024-03-19 18:16] LABS: Albumin, Serum 3.6 gm/dL (3.4-4.8); Anion Gap 10 (7-16); BUN/Creatinine Ratio 9 Ratio (12-20); Blood Urea Nitrogen 13 mg/dL (9-23); Calcium 8.4 mg/dL (8.3-10.6); Calcium (Corrected) 8.7 mg/dL (8.5-10.1); Carbon Dioxide 22.4 mMol/L (20.0-31.0); Chloride 106 mMol/L (98-107); Creatinine (Component) 1.4 mg/dL (0.6-1.3); Estimated Creatinine Clearance 39.9 mL/min (>60); Glucose 118 mg/dL (74-106); Osmolality,Calculated 276 (275-295); Phosphorous 2.4 mg/dL (2.4-5.1); Potassium 3.3 mMol/L (3.4-5.1); Sodium 138 mMol/L (136-145); eGFR 42 See Note
--- NOTE | 2024-03-19 18:20 | ESPR_ITS ---
Documentation for date of: 03/19/24 Subjective Subjective Interval history: Chart review done as patient has developmental delay and includes giving any information. No family or care provider at bedside. Ms. Ac is a 63-year-old female with past medical history of developmental delay, seizure disorder, hypertension, hyperlipidemia, hypoparathyroidism, hypothyroidism, hypocalcemia, presented to the ED due to seizure-like activity. Apparently in the emergency department -- care provider stated patient had 4 episodes of seizures in the past 1 week. Patient has history of seizure disorder is seen by neurologist Dr. Elizondo, per caregiver, last seizure activity was more than 1 year ago. Seizures were described to last less than 45 minutes associated with nausea and 1 episode of vomiting, but denies incontinence, loss of consciousness. In the emergency department labs showed potassium 3.2, BUN 36, creatinine 2.2, calcium 16, magnesium 2 alk phos 519, TSH 7.14, urinalysis shows mild UTI, head CT negative. EKG normal, chest x-ray normal. In the emergency department she was given 1 g of Keppra. Normal saline fluid boluses were given for hypercalcemia and renal consultation was requested. 03/17/2024 patient currently seen in medical floor. Seizure precautions noted. Is developmentally delayed. Currently, off the bed. Sitter at bedside. 03/18/2023 patient currently seen in medical floor. She is developmentally delayed although alert and awake.Labs, medications reviewed. Blood pressure 157/86, heart rate 89. WBC 6.8, hemoglobin 7.3, platelets 94. Sodium 142, potassium 3.6, BUN 23, creatinine 1.7, phosphorus 1.6, calcium 9.8, magnesium 1.6, LFTs normal. 03/19/2024 Patient was seen and examined at bedside. No new accidents reported by the nursing staff, vital signs only significant of heart rate of 102, respiratory rate 26 however on examination patient was lying in bed comfortably. Her potassium noticed to be 2.8 which was repleted by the primary team, her serum creatinine is improving from 1.8-1.5, phosphate noticed to be low at 1 and magnesium 1.3, calcium 9.3, because of the iatrogenic hypoparathyroidism will start the patient on calcium to avoid hypocalcemia. Exam Vital Signs Temp Pulse Resp BP Pulse Ox O2 Del Method O2 Flow Rate 98.6 F 102 H 18 151/86 H 92 L Nasal Cannula 1 03/19/24 16:00 03/19/24 16:00 03/19/24 16:00 03/19/24 16:00 03/19/24 16:00 03/19/24 16:00 03/19/24 16:00 Narrative Exam GEN: Alert, talkative, has difficulty hearing she was not wearing her hearing aids HEENT: NC/AC, oral mucosa moist, neck supple CVS: RRR, S1-S2 present, no murmurs appreciated RESP: CTAB GI: soft,non distended, non tender, NBS MSK: able to move all 4 limbs, no lower extremity edema SKIN: warm and dry CARPENTRY INSTRUCTOR: No signs of focal neurological deficit. Objective Labs 03/19/24 04:54 03/19/24 17:17 Labs: Laboratory Results - last 24 hr 03/19/24 03/19/24 04:54 17:17 WBC 8.8 RBC 2.84 L Hgb 7.7 L Hct 23.7 L MCV 84 MCH 27.1 MCHC 32.5 RDW Std Deviation 41.1 Plt Count 109 L Neut % (Auto) 81 H Lymph % (Auto) 13 [place] % (Auto) 6 Eos % (Auto) 0 Baso % (Auto) 0 Neut # (Auto) 7.1 Lymph # (Auto) 1.1 [place] # (Auto) 0.5 Eos # (Auto) 0.0 Baso # (Auto) 0.0 Immature Gran # (Auto) 0.05 H Absolute Nucleated RBC 0.00 Immature Gran % 1 H Nucleated RBC % 0 Sodium 142 138 Potassium 2.8 L D 3.3 L D Chloride 109 H 106 Carbon Dioxide 24.1 22.4 Anion Gap 9 10 BUN 17 13 Creatinine 1.5 H 1.4 H Estim Creat Clear Calc 37.2 L 39.9 L eGFR 39 L 42 L BUN/Creatinine Ratio 11 L 9 L Glucose 102 118 H Calculated Osmolality 284 276 Calcium 9.3 8.4 Corrected Calcium 9.8 8.7 Phosphorus 1.0 L 2.4 Magnesium 1.3 L Total Bilirubin 0.3 AST 24 ALT 24 Alkaline Phosphatase 94 Total Protein 5.7 Albumin 3.4 3.6 Globulin 2.3 Albumin/Globulin Ratio 1.5 Quality Measures Quality Measures none Assessment & Plan Assessment Current Active Medications: Generic Name Dose Route Start Last Admin Trade Name Freq PRN Reason Stop Dose Admin Acetaminophen 650 mg 03/16/24 16:05 Acetaminophen 325 Mg Tablet PO 04/15/24 16:04 Q6H PRN Fever >100.5 Acetaminophen 650 mg 03/16/24 16:05 03/17/24 14:31 Acetaminophen 325 Mg Tablet PO 04/15/24 16:04 650 mg Q6H PRN Administration PAIN SCALE 1-3 (mild Atorvastatin Calcium 40 mg 03/16/24 21:00 03/18/24 21:36 Atorvastatin Calcium 20 Mg Tablet PO 04/15/24 20:59 40 mg HS MARKEL Administration Carbamazepine 200 mg 03/16/24 21:00 03/19/24 09:31 Carbamazepine 200 Mg Tablet PO 04/15/24 20:59 200 mg BID MARKEL Administration Docusate Sodium 100 mg 03/17/24 09:00 03/19/24 09:31 Docusate Sod 100 Mg Capsule PO 04/16/24 08:59 100 mg QDAY MARKEL Administration Protocol Heparin Sodium (Porcine) 5,000 unit 03/16/24 22:00 03/19/24 17:02 Heparin Sod Inj 5000 Unit/Ml Vial SC 03/30/24 21:59 Not Given Q8HR MARKEL Ceftriaxone Sodium/Dextrose 50 mls @ 100 mls/hr 03/18/24 09:42 03/19/24 09:27 Rocephin/D5w 1gm Iv Premix IV 03/25/24 09:41 100 mls/hr QDAY MARKEL Administration Labetalol HCl 10 mg 03/17/24 00:19 Labetalol Inj 5 Mg/Ml Vial 20 Ml IVP 04/16/24 00:29 Q2H PRN SBP > 180 Levetiracetam 500 mg 03/16/24 21:00 03/19/24 09:31 Levetiracetam 250 Mg Tablet PO 04/15/24 20:59 500 mg BID MARKEL Administration Levothyroxine Sodium 112 mcg 03/17/24 06:00 03/19/24 05:24 Levothyroxine Sodium 112 Mcg Tablet PO 04/16/24 05:59 112 mcg ACBR MARKEL Administration Ondansetron HCl 4 mg 03/16/24 16:05 03/17/24 21:55 Ondansetron Inj 2 Mg/Ml Inj 2 Ml IV 04/15/24 16:04 4 mg Q6H PRN Administration NAUSEA OR VOMITING Protocol Pantoprazole Sodium 40 mg 03/17/24 09:00 03/19/24 09:31 Pantoprazole 40 Mg Tablet PO 04/16/24 08:59 40 mg QDAY MARKEL Administration Risperidone 0.25 mg 03/16/24 21:00 03/19/24 09:27 Risperidone 0.5 Mg Tablet PO 04/15/24 20:59 0.25 mg BID MARKEL Administration Zonisamide 200 mg 03/16/24 21:00 03/19/24 10:28 Zonisamide 100 Mg Capsule PO 04/15/24 20:59 Not Given BID MARKEL Plan Assessment and plan #GABRIEL-improving with IV fluids. Most likely prerenal azotemia from hypercalcemia, decreased p.o. intake # Severe hypercalcemia #Hx of Hypoparathyroidism #Hypomagnesemia #Hypophosphatemia Baseline creatinine 0.8-1.0 Current creatinine 2.2-->2.0--1.7-->1.5 calcium levels markedly dropped to 9.8. Calcium is going to go low. Phosphorus low at 1, magnesium 1.3 which was replaced. Patient takes losartan at home Vitamin D level pending Renal ultrasound showed cortical thinning of the kidneys bilaterally Plan ?Hold IV fluids. ?Strict I&O's ?Resume patient calcium 600 mg twice daily ?Replete electrolyte as needed aggressively ?Continue to monitor calcium levels daily, keep calcium level above 8 - Patient's plan and care discussed with my attending, Dr. Penny Barkley MD Internal Medicine PGY-2 Attending Provider Attestation/Addendum Patient seen and examined with resident physician Dr. Mills. Note reviewed, agree with findings and recommendations. Calcium, creatinine improving. However with significant history of hypoparathyroidism risk of hypocalcemia is high. Resumed calcium. Noted team replaced magnesium and phosphorus.
--- NOTE | 2024-03-19 18:26 | PC.NURSE ---
RN confirm with MD that the pt will d/c tomorrow, 03/20, instead of today, 03/19.
[2024-03-19] MEDS: CALCIUM CARBONATE 600 MG TABLET PO ×2 (18:34→20:37)
[2024-03-19] MEDS: ZONISAMIDE 100 MG CAPSULE 200 MG PO (20:37)
[2024-03-19] MEDS: POTASSIUM CHLORIDE 20 mEq TABCR 40 MEQ PO (20:37)
[2024-03-19] MEDS: ATORVASTATIN CALCIUM 20 MG TABLET 40 MG PO (20:38)
[2024-03-20] VITALS: BP 140/79; PULSE 104; PULSE 90; RESP 18; TEMP 36.6; O2SAT 90
[2024-03-20 04:00] VITALS: BP 135/63; PULSE 89; PULSE 91; RESP 18; TEMP 36.7; O2SAT 97
[2024-03-20] MEDS: LEVOTHYROXINE SODIUM 112 MCG TABLET PO (05:17)
[2024-03-20 06:33] LABS: Basophils % (Auto) 0 % (0-2.5); Eosinophils % (Auto) 1 % (0-10); Hematocrit 23.2 % (36.0-46.0); Immature Granulocytes % (Auto) 0 % (0-0); Immature Granulocytes Auto 0.03 Thou/mm3 (0.00-0.00); Lymphocytes # (Auto) 1.3 Thou/mm3 (1.0-4.8); Lymphocytes % (Auto) 18 % (10-50); Mean Corpuscular HGB Conc 33.6 g/dl (31.0-37.0); Mean Corpuscular Hemoglobin 27.7 pg (25.0-35.0); Mean Corpuscular Volume 82 fL (80-100); Monocytes # (Auto) 0.5 Thou/mm3 (0.0-0.8); Monocytes % (Auto) 6 % (0-12); Neutrophils # (Auto) 5.4 Thou/mm3 (1.8-7.7); Neutrophils % (Auto) 75 % (37-80); Nucleated Red Blood Cell % 0 /100 WBC (0); Platelet Count 91 Thou/mm3 (140-440); RDW Standard Deviation 40.8 fL (36.4-46.3); Red Blood Count 2.82 Miln/mm3 (4.00-5.20); White Blood Count 7.3 Thou/mm3 (3.6-11.0)
[2024-03-20 06:44] LABS: Hemoglobin 7.8 g/dL (12.0-16.0)
[2024-03-20 07:23] LABS: Alanine Aminotransferase 38 U/L (10-49); Albumin, Serum 3.7 gm/dL (3.4-4.8); Albumin/Globulin Ratio 1.7 (1.2-2.2); Alkaline Phosphatase 110 U/L (46-116); Anion Gap 10 (7-16); Aspartate Amino Transferase 30 U/L (0-34); BUN/Creatinine Ratio 9 Ratio (12-20); Bilirubin,Total 0.5 mg/dL (0.3-1.2); Blood Urea Nitrogen 12 mg/dL (9-23); Calcium 7.9 mg/dL (8.3-10.6); Calcium (Corrected) 8.1 mg/dL (8.5-10.1); Carbon Dioxide 23.2 mMol/L (20.0-31.0); Chloride 105 mMol/L (98-107); Creatinine (Component) 1.3 mg/dL (0.6-1.3); Globulin 2.2 gm/dL (2.3-3.5); Glucose 101 mg/dL (74-106); Magnesium 2.1 mg/dL (1.6-2.6); Osmolality,Calculated 275 (275-295); Phosphorous 1.5 mg/dL (2.4-5.1); Sodium 138 mMol/L (136-145); Total Protein 5.9 gm/dL (5.7-8.2); eGFR 46 See Note
[2024-03-20 08:00] VITALS: BP 151/90; PULSE 89; PULSE 91; RESP 18; TEMP 36.1; O2SAT 92
[2024-03-20] MEDS: POTASSIUM CHLORIDE 10% 20 MEQ/15 ML UDC 40 MEQ PO (08:51)
[2024-03-20] MEDS: carBAMazepine 200 MG TABLET PO (08:51)
[2024-03-20] MEDS: ZONISAMIDE 100 MG CAPSULE 200 MG PO (08:51)
[2024-03-20] MEDS: CALCIUM CARBONATE 600 MG TABLET PO (08:52)
[2024-03-20] MEDS: cefTRIAXone/D5w 1gm IV premix 50 ML IV (08:52)
[2024-03-20] MEDS: PANTOPRAZOLE 40 MG TABLET PO (08:53)
[2024-03-20] MEDS: risperiDONE 0.5 MG TABLET 0.25 MG PO (08:53)
[2024-03-20] MEDS: DOCUSATE SOD 100 MG CAPSULE PO (08:53)
[2024-03-20] MEDS: levETIRAcetam 250 MG TABLET 500 MG PO (08:53)
[2024-03-20] MEDS: NAPH,KPH MBDB 1 PACKET (1.5 GM) PO (09:45)
[2024-03-20 12:00] VITALS: BP 163/86; PULSE 61; PULSE 90; RESP 18; TEMP 36.2; O2SAT 94
--- NOTE | 2024-03-20 12:02 | PD.RESDS ---
Planned Discharge Date 03/20/24 DS: Providers Provider Date of admission: 03/16/24 16:11 Primary care physician: Physician No Primary/Family Admitting Provider: Lizzie Brown MD Attending Provider on Admission: Lizzie Brown MD Consults: 03/17/24 06:00 Consult to Nephrology Stat Comment: Consulting Provider: Stephanie Francis Attending Provider on DC: Pancho Hamilton MD Discharging Provider: Pancho Hamilton MD DS: Diagnosis Problem List Completed Was Problem List Reviewed/Reconciled?: Yes Hospital Course Hospital Course Hospital course: Ms. Ac is a 63-year-old female with past medical history of developmental delay, seizure disorder, hypertension, hyperlipidemia, hypoparathyroidism, hypothyroidism, hypocalcemia who presented to [facility] with seizure-like activity. Patient's care provider had informed the emergency department the patient had 4 tonic-clonic seizures prior to coming to the hospital with the seizures being described less than 45 seconds and one of them having an episode of nausea and vomiting but no incontinence or loss of consciousness was noted. In the emergency department labs revealed that the patient had an GABRIEL with creatinine noted to be 2.2 with primary concern of hypercalcemia with calcium of 16 and elevated alkaline phosphatase of 519. In the emergency department patient received 1 g of Keppra and was placed on IV fluid hydration for management of hypercalcemia. Patient received calcitonin and aggressive IV fluid hydration by primary team for management of moderate hypercalcemia. Patient at home was taking calcitriol for calcium supplementation which was discontinued upon hospitalization. Nephrology was consulted who recommended to continue with aggressive IV fluid hydration and once patient's GABRIEL improved patient received bisphosphonate to further improve the calcium levels. Patient's calcium levels came within normal range following 48 hours. We recommend to follow-up with primary care physician to discuss recent hospitalization and to obtain outpatient renal panel to assess calcium levels. Patient will be sent home on a slight dose of calcium carbonate due to due to parathyroidectomy and calcium levels going lower. Patient on previous imaging at [facility] was noted to have BI-RADS Category 2 on breast mammogram which was indeterminate for small masses that may be obscured. We recommend to follow-up with primary care physician for age-related cancer screening and for further assessment for breast cancer. With a calcium range above 16 malignancy remains a primary concern and must be ruled out. #New medication Calcium carbonate 260 mg p.o. daily #Follow-up Follow-up with primary care physician for age-related screening and breast mammogram Follow-up with nephrology for further management of hypercalcemia Problem List: #Seizure disorder #hypercalcemia-resolved #GABRIEL-resolved #Normocytic anemia #Hypertension #hyperlipidemia #Hypothyroidism #Electrolyte disturbances #Hypermagnesemia #Hypokalemia #Hx of Hypoparathyroidism Plan for discharge discussed with supervising attending Dr. Kevin Hamilton MD PGY-1 Safia Jessica M.D. PGY-3 Status at Discharge Functional status at discharge: bed bound Overall status at discharge: patient is progressing back to baseline Time Spent with Patient Time attestation: Total time spent providing and/or coordinating discharge services: Time spent: Greater than 30 minutes Exam Vital Signs Temp Pulse Resp BP Pulse Ox O2 Del Method O2 Flow Rate 97.0 F 91 18 151/90 H 92 L Room Air 1 03/20/24 08:00 03/20/24 08:00 03/20/24 08:00 03/20/24 08:00 03/20/24 08:00 03/20/24 08:00 03/19/24 16:00 Narrative Exam Physical Exam: General: Patient seems to be comfortable Head and neck: Hearing and vision normal Cardiovascular: Regular rate and rhythm, no murmurs. Respiratory: Clear to Auscultation bilaterally, no wheezing, no crackles. Abdomen: Soft, non-tender, no palpable masses or organomegdaly. Extremities: No edema, normal peripheral pulses. Genitourinary: no suprapubic tenderness, absent costovertebral tenderness. Neurology: Patient alert, awake and responding to questions. has developmental delay. Discharge Plan Plan Patient Disposition: HOME (Self Care) Patient condition on transfer: Stable Care Plan Goals: Patient found with very high calcium on admission most likely related to supplementation patient is taken, however possibility of cancer remains, in view of the patients abnormal mammograms, recommend follow up with Oncology to evaluate for cancer. Continue 5 more days of antibiotics for E. coli UTI. Recommend to discontinue calcium and vitamin D supplements including calcitriol, vitamin D 3. Recommend to take calcium carbonate due to hyperparathyroidism and recheck calcium levels in 5 days and follow-up with primary care physician. Recommend follow up with her primary care physician within 3-5 days of discharge and obtain outpatient order for CMP to follow-up with potassium and calcium levels. Will be sent home with a 5-day course of 20 mEq of potassium daily. In case of worsening symptoms please return to the emergency room. Prescriptions/Referrals Prescriptions/Med Rec: New cephalexin 500 mg capsule 500 mg PO BID Qty: 10 0RF potassium chloride 20 mEq tablet extended release 20 meq PO QDAY Qty: 5 0RF calcium carbonate 260 mg calcium (648 mg) tablet 260 mg PO QDAY Qty: 30 0RF Continued cetirizine 10 mg Tablet 10 mg PO QDAY ferrous sulfate [FeroSul] 325 mg (65 mg iron) Tablet 325 mg PO QDAY olopatadine 0.1 % drops 1 drp OPHTHALMIC (EYE) BID hydroxyzine HCl 25 mg tablet 25 mg PO HS fluticasone propionate 50 mcg/actuation [place],Suspension 2 spray INTRANASAL QDAY Rx Instructions: administer into each nostril levothyroxine 112 mcg tablet 112 mcg PO ACBR losartan 50 mg tablet 50 mg PO QDAY levetiracetam 500 mg tablet 500 mg PO BID simvastatin 40 mg tablet 40 mg PO HS zonisamide 100 mg capsule 200 mg PO BID carbamazepine 200 mg tablet 200 mg PO BID magnesium oxide 400 mg (241.3 mg magnesium) tablet 400 mg PO QDAY oxybutynin chloride 5 mg tablet 5 mg PO QDAY risperidone 0.5 mg tablet 0.25 mg PO BID Rx Instructions: 0.25 mg po AM & HS Discontinued calcium carbonate-vitamin D3 600 mg-10 mcg (400 unit) tablet 600 tab PO BID calcitriol 0.25 mcg capsule 1 mcg PO QDAY cholecalciferol (vitamin D3) 50 mcg (2,000 unit) tablet 50 mcg PO QDAY Referrals: No Primary/Family,Physician [Primary Care Provider] - Stephanie Francis MD [Physician] - Patient/Caregiver Discharge Instructions Print Language: [place] Citizen Stand Alone Forms: Ana Award Info., Patient Portal Info Letter Discharge Order Discharge Orders: Discharge (Routine); Ordered 03/19/24 Ordered By: Pancho Hamilton Quality Discharge Quality Measures none
[2024-03-22 06:26] LABS: CA 19-9 Antigen* 7 U/mL (<34)
[2024-03-23 06:30] LABS: Vitamin D,1,25 (OH)2,Total 32 pg/mL (18-72); Vitamin D2, 1,25 (OH)2 <8 pg/mL; Vitamin D3, 1,25 (OH)2 32 pg/mL
== END 2024-03-20 13:13 | disposition home or self-care (01) | DRG 425 ==
LOC: SERX 15:44 → SERHOLD 17:14 → S3SX 20:41
PROVIDERS: Internal Medicine; Nurse Practitioner Family; Registered Nurse General Practice; Student in an Organized Health Care Education/Training Program; Admitting Provider Internal Medicine; Emergency Provider Emergency Medicine; Visit Provider Internal Medicine
DX: E83.52 Hypercalcemia (principal); N17.9 Acute kidney failure, unspecified; I10 Essential (primary) hypertension; G40.909 Epilepsy, unspecified, not intractable, without status epilepticus; D64.9 Anemia, unspecified; E03.9 Hypothyroidism, unspecified; E78.5 Hyperlipidemia, unspecified; E83.41 Hypermagnesemia; E87.6 Hypokalemia; E83.39 Other disorders of phosphorus metabolism; E83.51 Hypocalcemia; E83.42 Hypomagnesemia; Z96.641 Presence of right artificial hip joint; Z79.899 Other long term (current) drug therapy; Z79.890 Hormone replacement therapy
CPT/HCPCS: 36415; 70450; 71046; 76770; 80053; 80061; 80069; 81001; 82306; 82378; 82652; 83540; 83550; 83615; 83735; 83880; 83970; 84100; 84439; 84443; 84484; 85025; 85610; 85730; 86301; 86304; 87077; 87081; 87086; 87186; 93005; 93225; 96372; 96374; 96375; 99285; J0630; J0696; J1643; J1953; J2405; J3475; J3480; J7030; J7999; A9270

== ENCOUNTER 2024-03-28 07:50 | Emergency (ER) | payer MEDICAID, SELFPAY ==
[2024-03-28 08:12] VITALS: BMI 26.5
[2024-03-28 08:18] VITALS: BP 125/71; PULSE 100; RESP 18; TEMP 36.7; O2SAT 96
--- NOTE | 2024-03-28 08:36 | PD.EDSEIZ ---
ED Seizures RME/HPI General Chief Complaint: Seizure Stated Complaint: SEIZURE Time Seen by Provider: 03/28/24 08:10 Arrival date/time: 03/28/24 07:50 RME / HPI RME / HPI Narrative: 63 year old female with history of developmental delay, seizures, hypertension, hypothyroidism, h/o hypocalcemia presents to the ED BIBA from [facility] for evaluation of seizure today. Per medics, residential reported patient was having seizures. Medics state en route to ED the patient was twitching and talking, no tonic-clonic seizure was witnessed. No falls or injuries reported. On arrival patient appears to be having intermittent myoclonic jerks. She is alert and interactive. Related Data Home Medications ?Medication ?Instructions ?Recorded ?Confirmed carbamazepine 200 mg tablet 200 mg PO BID 02/15/23 03/16/24 levetiracetam 500 mg tablet 500 mg PO BID 02/15/23 03/16/24 levothyroxine 112 mcg tablet 112 mcg PO ACBR 02/15/23 03/16/24 losartan 50 mg tablet 50 mg PO QDAY 02/15/23 03/16/24 magnesium oxide 400 mg (241.3 mg 400 mg PO QDAY 02/15/23 03/16/24 magnesium) tablet oxybutynin chloride 5 mg tablet 5 mg PO QDAY 02/15/23 03/16/24 risperidone 0.5 mg tablet 0.25 mg PO BID 02/15/23 03/16/24 simvastatin 40 mg tablet 40 mg PO HS 02/15/23 03/16/24 zonisamide 100 mg capsule 200 mg PO BID 02/15/23 03/16/24 cetirizine 10 mg tablet 10 mg PO QDAY 03/16/24 03/16/24 ferrous sulfate 325 mg (65 mg 325 mg PO QDAY 03/16/24 03/16/24 iron) tablet (FeroSul) fluticasone propionate 50 2 spray intranasal QDAY 03/16/24 03/16/24 mcg/actuation nasal spray,suspension hydroxyzine HCl 25 mg tablet 25 mg PO HS 03/16/24 03/16/24 olopatadine 0.1 % eye drops 1 drp ophthalmic (eye) BID 03/16/24 03/16/24 Previous Rx's ?Medication ?Instructions ?Recorded cephalexin 500 mg capsule 500 mg PO BID #10 caps 03/19/24 calcium carbonate 260 mg PO QDAY #30 tabs 03/20/24 potassium chloride 20 mEq 20 meq PO QDAY #5 tabs 03/20/24 tablet,extended release Allergies Allergy/AdvReac Type Severity Reaction Status Date / Time No Known Allergies Allergy Unverified 03/16/24 09:24 Review of Systems Review of Systems ROS Unobtainable: unobtainable due to medical condition Past Medical History Past Medical History NEUROLOGIC: Positive Neurological Disorders, Seizures and Epilepsy CARDIAC: Positive Cardiac Disorders, Hypercholesterolemia and Hypertension ENDOCRINE: Positive Hypothyroidism OTHER HISTORY: Positive Falls Family History FAMILY HISTORY: Positive Family Respiratory Disorders and Family Cardiac Disorders Surgical History SURGICAL: Negative Endocrine Surgery or Ear Surgery Social History SMOKING STATUS: Never smoker ED Exam Narrative Physical exam: GENERAL APPEARANCE: Awake, myoclonic jerks during examination, well-nourished HEENT: Normocephalic, atraumatic; pupils equal, round, reactive to light; EOMI; mucous membranes pink, moist; oropharynx clear NECK: Supple LUNGS: CTABL; no wheezes, no rales, no rhonchi HEART: Regular rate, regular rhythm; normal S1, S2; no murmurs ABDOMEN: non distended; normal BS; soft, no tenderness, no guarding, no rebound; no masses, no organomegaly, no hernia BACK: no CVA tenderness EXTREMITIES: atraumatic; no edema NEUROLOGIC: Awake, alert; myoclonic jerks during exam; cranial nerves II-XII grossly intact PSYCHIATRIC: appropriate mood and affect SKIN: warm, dry, normal color; no rashes Course Course Course Narrative: 1154: I called neurologist Dr. Elizondo to update on CMP results, no answer. Left a voicemail. Quality Measures none Orders Category Date Time Status Ammonia Stat Lab 03/28/24 08:20 Completed CBC Stat Lab 03/28/24 08:20 Completed CMP [Comprehensive Metabolic Panel] Stat Lab 03/28/24 08:20 Completed Magnesium Stat Lab 03/28/24 08:20 Completed PTH [Parathyroid Hormone Intact] Stat Lab 03/28/24 08:20 Completed TSH [Thyroid Stimulating Hormone] Stat Lab 03/28/24 08:20 Completed CHOLECALCIFEROL (Vitamin D3) [Vitamin D] Med 03/28/24 15:08 Discontinued 400 iu PO X1 ONE Calcium Carbonate Med 03/28/24 15:08 Discontinued 600 mg PO X1 ONE Calcium Gluc/Ns 1000MG Ivpb [Calcium Gluc/Ns 1000mg Med 03/28/24 12:43 Discontinued Ivpb] 1,000 mg in 50 ml IV X1 Calcium Gluconate 10% Inj Med 03/28/24 09:37 Discontinued 1 gm IV X1 ONE LORazepam [Ativan Inj] Med 03/28/24 08:00 Discontinued 2 mg .ROUTE .STK-MED ONE Magnesium Sulfate 2 GM Ivpb [Magnesium Sulfate Ivpb] Med 03/28/24 09:38 Discontinued 2 gm in 50 ml IV X1 levETIRAcetam INJ [Keppra Inj] Med 03/28/24 08:20 Discontinued 1,000 mg IVP X1 ONE Vital Signs Vital signs: Vital Signs Temperature 98.1 F 03/28/24 08:18 Pulse Rate 100 03/28/24 08:18 Respiratory Rate 18 03/28/24 08:18 Blood Pressure 125/71 03/28/24 08:18 Pulse Oximetry (%) 96 03/28/24 08:18 Oxygen Delivery Method Room Air 03/28/24 08:18 Pulse ox is 96% on room air which is adequate. Seizure MDM Narrative MDM Narrative:: Gianna Weir am scribing for and in the presence of Dr. Bill. Patient data External records reviewed:: [facility] previous records (I reviewed admission from 03/16/2024 through 03/19/2024 for GABRIEL ), EMS form and [facility] records (I reviewed medication list from [facility] ) Clinical information provided by:: EMS and molecular physicist Social determinants that could affect healthcare access:: housing ([facility] resident ) Patient has the following chronic illnesses:: developmental delay, seizures, hypertension, hypothyroidism, h/o hypocalcemia How is presenting disease/condition affected by chronic disease/condition?: exacerbated by Evaluation data The following diagnostics were reviewed and interpreted by me:: lab results Lab and/or radiology exams considered but not ordered:: None Interpretation Summary: Hypocalcemia at 6.1 mg/dL Medications / Prescriptions Medications or Prescriptions considered but not ordered:: None Medication administrations:: Medication Administration History Discontinued Medications Calcium Carbonate (Calcium Carbonate 600 Mg Tablet) 600 mg PO X1 ONE Stop: 03/28/24 15:09 Last Admin: 03/28/24 16:13 Dose: 600 mg Documented By: ARF Calcium Gluconate (Calcium Gluconate 10% Inj 1 Gm/10 Ml Vial) 1 gm IV X1 ONE Stop: 03/28/24 09:38 Last Admin: 03/28/24 10:03 Dose: 1 gm Documented By: ARF Magnesium Sulfate (Magnesium Sulfate Ivpb) 2 gm in 50 mls @ 25 mls/hr IV X1 ONE Stop: 03/28/24 11:37 Last Infusion: 03/28/24 13:02 Dose: Infused Documented By: Admin: 03/28/24 10:03 Dose: 25 mls/hr Documented By: ARF Calcium Gluconate/Sodium Chloride (Calcium Gluc/Ns 1000mg Ivpb) 1,000 mg in 50 mls @ 50 mls/hr IV X1 ONE Stop: 03/28/24 13:42 Last Infusion: 03/28/24 15:02 Dose: Infused Documented By: Admin: 03/28/24 13:53 Dose: 50 mls/hr Documented By: Levetiracetam (Levetiracetam Inj 100 Mg/Ml Vial 5ml) 1,000 mg IVP X1 ONE Stop: 03/28/24 08:21 Last Admin: 03/28/24 10:03 Dose: 1,000 mg Documented By: ARF Lorazepam (Lorazepam 2 Mg/Ml Vial) Confirm Administered Dose 2 mg .ROUTE .STK-MED ONE Stop: 03/28/24 08:01 Last Admin: 03/28/24 10:04 Dose: Not Given Documented By: ARF Non-Admin Reason: Other, see note Vitamin D (Cholecalciferol (Vitamin D3) 400 Iu Tablet) 400 iu PO X1 ONE Stop: 03/28/24 15:09 Last Admin: 03/28/24 16:13 Dose: 400 iu Documented By: ARF See above Consultations Consultation(s) initiated? (list below): Yes Consultation #1 (Physician, Specialty, Details): Neurologist Dr. Elizondo consulted, reports if CMP is within normal limits to increase the Keppra dosage. Time: 08:00 Consultation #2 (Physician, Specialty, Details): I spoke with neurologist Dr. Elizondo. Discussed patients labs results. Time: 12:40 Diagnosis Seizure Differential Diagnosis: intractable seizure disorder, focal seizure, generalized seizure, epileptic seizure, status epilepticus and other (Myoclonic jerks ) Most likely diagnosis given after review of the tests above:: Myoclonic jerking Hypocalcemia Admission Indicated Admission indicated?: not indicated Admission Request Was there a request for admission?: No Disposition Plan Disposition Plan: Discharge Discharge Attestation Discharge Attestation: The patient and all family members were given an opportunity to ask questions and understood the discharge instructions. Discharge instructions specifically effects, indications for sooner follow up or return to the emergency department, and the expected course of current diagnosis. Patient condition: Stable Discharge Plan Plan Patient Disposition: HOME (Self Care) Prescriptions/Referrals Prescriptions/Med Rec: No Action cetirizine 10 mg Tablet 10 mg PO QDAY ferrous sulfate [FeroSul] 325 mg (65 mg iron) Tablet 325 mg PO QDAY olopatadine 0.1 % drops 1 drp OPHTHALMIC (EYE) BID hydroxyzine HCl 25 mg tablet 25 mg PO HS fluticasone propionate 50 mcg/actuation [place],Suspension 2 spray INTRANASAL QDAY Rx Instructions: administer into each nostril cephalexin 500 mg capsule 500 mg PO BID Qty: 10 0RF potassium chloride 20 mEq tablet extended release 20 meq PO QDAY Qty: 5 0RF calcium carbonate 260 mg calcium (648 mg) tablet 260 mg PO QDAY Qty: 30 0RF levothyroxine 112 mcg tablet 112 mcg PO ACBR losartan 50 mg tablet 50 mg PO QDAY levetiracetam 500 mg tablet 500 mg PO BID simvastatin 40 mg tablet 40 mg PO HS zonisamide 100 mg capsule 200 mg PO BID carbamazepine 200 mg tablet 200 mg PO BID magnesium oxide 400 mg (241.3 mg magnesium) tablet 400 mg PO QDAY oxybutynin chloride 5 mg tablet 5 mg PO QDAY risperidone 0.5 mg tablet 0.25 mg PO BID Rx Instructions: 0.25 mg po AM & HS Referrals: Sirena Sandhu FNP [Primary Care Provider] - In 1 week Raj Elizondo MD [Physician] - 04/11/24 Problem List Clinical Impression: Myoclonic jerking, Hypocalcemia Patient/Caregiver Discharge Instructions Education Materials: ED Hypocalcemia (Adult) Additional Instructions: Follow up with Dr. Elizondo on 04/11/24. Call office for appointment time. Print Language: [place] Stand Alone Forms: Ana Award Info., Patient Portal Info Letter
[2024-03-28 08:37] LABS: Basophils % (Auto) 1 % (0-2.5); Eosinophils # (Auto) 0.1 Thou/mm3 (0.0-0.5); Eosinophils % (Auto) 2 % (0-10); Hematocrit 26.7 % (36.0-46.0); Hemoglobin 8.9 g/dL (12.0-16.0); Immature Granulocytes % (Auto) 0 % (0-0); Immature Granulocytes Auto 0.01 Thou/mm3 (0.00-0.00); Lymphocytes # (Auto) 1.1 Thou/mm3 (1.0-4.8); Lymphocytes % (Auto) 21 % (10-50); Mean Corpuscular HGB Conc 33.3 g/dl (31.0-37.0); Mean Corpuscular Hemoglobin 27.4 pg (25.0-35.0); Mean Corpuscular Volume 82 fL (80-100); Monocytes # (Auto) 0.4 Thou/mm3 (0.0-0.8); Monocytes % (Auto) 7 % (0-12); Neutrophils # (Auto) 3.5 Thou/mm3 (1.8-7.7); Neutrophils % (Auto) 69 % (37-80); Nucleated Red Blood Cell % 0 /100 WBC (0); Platelet Count 214 Thou/mm3 (140-440); RDW Standard Deviation 43.4 fL (36.4-46.3); Red Blood Count 3.25 Miln/mm3 (4.00-5.20)
[2024-03-28 08:54] LABS: Parathyroid Hormone Intact 9.6 pg/ml (18.5-88.0)
[2024-03-28 08:55] LABS: Ammonia < 10 uMol/L (11-32)
[2024-03-28 08:56] LABS: Alanine Aminotransferase 29 U/L (10-49); Albumin, Serum 4.2 gm/dL (3.4-4.8); Albumin/Globulin Ratio 1.8 (1.2-2.2); Alkaline Phosphatase 100 U/L (46-116); Anion Gap 12 (7-16); Aspartate Amino Transferase 22 U/L (0-34); BUN/Creatinine Ratio 13 Ratio (12-20); Bilirubin,Total 0.2 mg/dL (0.3-1.2); Blood Urea Nitrogen 17 mg/dL (9-23); Carbon Dioxide 25.9 mMol/L (20.0-31.0); Chloride 104 mMol/L (98-107); Creatinine (Component) 1.3 mg/dL (0.6-1.3); Globulin 2.4 gm/dL (2.3-3.5); Glucose 101 mg/dL (74-106); Magnesium 1.5 mg/dL (1.6-2.6); Osmolality,Calculated 284 (275-295); Potassium 4.2 mMol/L (3.4-5.1); Sodium 142 mMol/L (136-145); Thyroid Stimulating Hormone 3.89 uIU/mL (0.55-4.78); Total Protein 6.6 gm/dL (5.7-8.2); eGFR 46 See Note
[2024-03-28 09:00] LABS: Calcium 6.1 mg/dL (8.3-10.6); Calcium (Corrected) 6.1 mg/dL (8.5-10.1)
[2024-03-28] MEDS: CALCIUM GLUCONATE 10% INJ 1 GM/10 ML VIAL IV (10:03)
[2024-03-28] MEDS: Magnesium Sulfate 2 GM Ivpb 2 GM/50 ML BAG IV (10:03)
[2024-03-28] MEDS: levETIRAcetam INJ 100 MG/ML VIAL 5ML 1000 MG IVP (10:03)
[2024-03-28 12:07] VITALS: BP 136/77; PULSE 68; RESP 16; TEMP 36.8; O2SAT 96
[2024-03-28] MEDS: CALCIUM GLUC/NS 1000MG IVPB 1,000 MG/50 ML BAG 50 MG IV (13:53)
[2024-03-28 14:02] VITALS: BP 156/97; PULSE 89; RESP 16; TEMP 36.3; O2SAT 95
[2024-03-28 16:02] VITALS: BP 149/85; PULSE 82; RESP 16; TEMP 36.7; O2SAT 97
[2024-03-28] MEDS: CALCIUM CARBONATE 600 MG TABLET PO (16:13)
[2024-03-28] MEDS: CHOLECALCIFEROL (Vitamin D3) 400 IU TABLET PO (16:13)
== END 2024-03-28 17:25 | disposition home or self-care (01) ==
PROVIDERS: Emergency Provider Emergency Medicine; PCP Registered Nurse Community Health
DX: G40.909 Epilepsy, unspecified, not intractable, without status epilepticus (principal); E83.51 Hypocalcemia
CPT/HCPCS: 36415; 80053; 81001; 82140; 83735; 83970; 84443; 85025; 96365; 99284; J0612; J0613; J1953; J3475; A9270

== ENCOUNTER → 2024-04-05 | Outpatient (CLI) | payer MEDICAID, SELFPAY ==
--- NOTE | 2024-04-05 14:30 | XR_ITS ---
Examination: Breast ultrasound complete, bilateral Date and time of exam: April 05, 2024 1442 hours INDICATIONS: Elevated CEA level on laboratory examination 2 weeks ago Technique: Real-time grayscale ultrasonographic imaging bilateral breasts, including all 4 quadrants as well as nipple retroareolar and axillary regions. Findings: Sonographic images right and left breast demonstrated no cystic or solid masses IMPRESSION: BI-RADS Category 1: Negative study
== END | disposition home or self-care (01) ==
PROVIDERS: PCP Registered Nurse Community Health; Referring Provider Registered Nurse Community Health; Visit Provider Registered Nurse Community Health
DX: R92.30 Dense breasts, unspecified (principal); E83.52 Hypercalcemia
CPT/HCPCS: 76641

== ENCOUNTER → 2024-06-25 | Outpatient (CLI) | payer MEDICAID, SELFPAY ==
--- NOTE | 2024-06-25 08:30 | XR_ITS ---
Examination: Screening digital mammography, bilateral Computer aided detection 3-D breast Tomosynthesis, bilateral Date and time of exam: June 25, 2024 0826 hours Compared to mammograms dating to January 15, 2020 Indication: Screening Technique: Nonmagnified MLO, CC views of the breasts to been obtained, reconstructed from 3-D Tomosynthesis images. R2 computer aided detection program utilized for evaluation of suspicious masses and/or abnormal calcifications. 3-D Tomosynthesis images obtained. Findings: The breasts are heterogeneously dense, which may obscure small masses Benign calcifications No suspicious masses Impression: BI-RADS category II: Benign Findings. Recommend 1 year follow-up mammogram.
== END | disposition home or self-care (01) ==
LOC: CDIM 08:17
PROVIDERS: Referring Provider Registered Nurse Community Health; Visit Provider Registered Nurse Community Health
DX: Z12.31 Encounter for screening mammogram for malignant neoplasm of breast (principal); R92.323 Mammographic fibroglandular density, bilateral breasts; R92.1 Mammographic calcification found on diagnostic imaging of breast
CPT/HCPCS: 77063; 77067

== ENCOUNTER 2024-08-04 23:53 | Inpatient (IN) | payer MEDICAID, SELFPAY ==
[2024-08-05] VITALS (15 sets, daily range): BP systolic 100–155; BP diastolic 52–96; PULSE 63–104; RESP 14–95; TEMP 36.5–37.3; O2SAT 88–100; BMI 26.1
--- NOTE | 2024-08-05 00:53 | XR_ITS ---
Examination: CT brain head without contrast. 2-D sagittal coronal reconstructions Date and time of exam:August 05, 2024 0257 hours Comparison March 16, 2024 INDICATIONS: Onset seizures today CTDI: vol (mGy):51 DLP: (mGycm):997 Technique: Multiple CT axial sections of the brain have been obtained, 5 mm slice thickness. Contrast has not been administered. 2-D sagittal, coronal reconstructions have been obtained Low dose protocols were performed. One or more of the following dose reduction techniques were used; automated exposure control, adjustment of the mA and/or KV according to patient size, use of iterative reconstruction technique. Findings: No significant ventricular enlargement. Intra-axial or extra-axial hemorrhage density is not seen. No mass effect or midline shift Basal cisterns are not remarkable. Fourth ventricle is midline. Cranial vault intact. Impression: Negative for acute hemorrhage, mass effect or midline shift Consider elective brain MRI follow up pre and postcontrast, seizure protocol
[2024-08-05 01:03] LABS: Collection Type, Urine Catheter
--- NOTE | 2024-08-05 01:19 | PD.EDAMS ---
Altered Mental Status RME/HPI General Chief Complaint: Altered Mental Status Stated Complaint: POSSIBLE SEIZURE Source: family (Daughter) Arrival date/time: 08/04/24 23:53 Mode of arrival: EMS Limitations: other RME / HPI RME / HPI narrative: DR. RODRIGUEZ?S MAIN ED EVALUATION: 64-year-old [id number] female with history of Seizures, Epilepsy, Hypercholesterolemia, Hypertension, and Hypothyroidism presenting to the emergency department via EMS from [facility] who is presenting for chief complaint of altered mental status, diarrhea and vomiting x 1 hour. Patient possibly post-ictal. Per daughter, patient was walking to the restroom at her correction being guided by staff when they noticed she was less coherent than usual and guided her to the floor. Patient had been sick with a fever and was given Tylenol 500mg earlier today. Daughter states that the last time this happened, patient had a fever and low Calcium levels. Per EMS, patient was altered and not responsive with GCS 3and blood sugar 140 mg/dL on scene. Patient does not usually use O2 at care facility. Patient denies pain, bloody stool, bloody vomit, or any other associated symptoms or medical complaints. - PMH:?Seizures, Epilepsy, Hypercholesterolemia, Hypertension, Hypothyroidism - PSH: Denies - Social history: Denies - Current medications: Reviewed PCP is Sirena Sandhu MD MD complaint: altered mental status Onset (ago): hour(s) (1) Associated symptoms: nausea/vomiting and diarrhea Related Data Home Medications ?Medication ?Instructions ?Recorded ?Confirmed carbamazepine 200 mg tablet 200 mg PO BID 02/15/23 03/16/24 levetiracetam 500 mg tablet 500 mg PO BID 02/15/23 03/16/24 levothyroxine 112 mcg tablet 112 mcg PO ACBR 02/15/23 03/16/24 losartan 50 mg tablet 50 mg PO QDAY 02/15/23 03/16/24 magnesium oxide 400 mg (241.3 mg 400 mg PO QDAY 02/15/23 03/16/24 magnesium) tablet oxybutynin chloride 5 mg tablet 5 mg PO QDAY 02/15/23 03/16/24 risperidone 0.5 mg tablet 0.25 mg PO BID 02/15/23 03/16/24 simvastatin 40 mg tablet 40 mg PO HS 02/15/23 03/16/24 zonisamide 100 mg capsule 200 mg PO BID 02/15/23 03/16/24 cetirizine 10 mg tablet 10 mg PO QDAY 03/16/24 03/16/24 ferrous sulfate 325 mg (65 mg 325 mg PO QDAY 03/16/24 03/16/24 iron) tablet (FeroSul) fluticasone propionate 50 2 spray intranasal QDAY 03/16/24 03/16/24 mcg/actuation nasal spray,suspension hydroxyzine HCl 25 mg tablet 25 mg PO HS 03/16/24 03/16/24 olopatadine 0.1 % eye drops 1 drp ophthalmic (eye) BID 03/16/24 03/16/24 Previous Rx's ?Medication ?Instructions ?Recorded cephalexin 500 mg capsule 500 mg PO BID #10 caps 03/19/24 calcium carbonate 260 mg PO QDAY #30 tabs 03/20/24 potassium chloride 20 mEq 20 meq PO QDAY #5 tabs 03/20/24 tablet,extended release Allergies Allergy/AdvReac Type Severity Reaction Status Date / Time No Known Allergies Allergy Verified 08/05/24 00:40 Review of Systems Review of Systems Systems Reviewed: All systems reviewed, normal except as documented Constitutional Constitutional: Reports fever(s) Gastrointestinal Gastrointestinal: Denies coffee ground emesis, Reports diarrhea, Denies hematochezia, Denies melena and Reports vomiting Neurologic Neurologic: Reports other (incoherence) Past Medical History Past Medical History NEUROLOGIC: Positive Neurological Disorders, Seizures and Epilepsy CARDIAC: Positive Cardiac Disorders, Hypercholesterolemia and Hypertension ENDOCRINE: Positive Hypothyroidism OTHER HISTORY: Positive Falls Family History FAMILY HISTORY: Positive Family Respiratory Disorders and Family Cardiac Disorders ED Exam General Limitations: Present other Head Head exam: Present atraumatic, normocephalic and normal inspection Eye Eye exam: Present normal appearance, PERRL and EOMI; Absent nystagmus ENT ENT exam: Present normal exam, normal oropharynx, mucous membranes moist and TM's normal bilaterally Neck Neck exam: Present normal inspection, full ROM and trachea midline; Absent tenderness Chest Chest inspection: Present normal inspection and symmetric chest wall rise; Absent tenderness or rash Respiratory Respiratory exam: Present normal lung sounds bilaterally; Absent respiratory distress, wheezes or stridor Cardiovascular Cardiovascular exam: Present regular rate, normal rhythm and normal heart sounds Abdominal Exam Abdominal exam: Present soft and normal bowel sounds; Absent distention, tenderness, guarding or rebound Extremities Exam Extremities exam: Present normal inspection, full ROM and normal capillary refill; Absent tenderness or pedal edema Back Exam Back exam: Present normal inspection and full ROM; Absent tenderness or paraspinal tenderness Neurological Exam Neurological exam: Present alert, oriented X3, CN II-XII intact and reflexes normal Psychiatric Psychiatric exam: Present normal affect and normal mood; Absent depressed, agitated or anxious Skin Skin exam: Present warm, dry, intact and normal color; Absent rash Course Course Course Narrative: CXR is ordered for determining the etiology of AMS. Quality Measures none Orders Category Date Time Status EKG (ED ONLY) *Do not use* NOW Care 08/05/24 00:[address] head/brain wo con Stat Exams 08/05/24 00:53 Taken EKG (ED Only) Stat Exams 08/05/24 00:53 Ordered XR chest 1V portable Stat Exams 08/05/24 01:22 Taken Alcohol, Blood Medical Stat Lab 08/05/24 01:00 Completed CBC Stat Lab 08/05/24 01:00 Completed CMP [Comprehensive Metabolic Panel] Stat Lab 08/05/24 01:00 Completed Drug Screen,Urine Stat Lab 08/05/24 00:57 Completed Lactic Acid [Lactate (Lactic Acid)] Stat Lab 08/05/24 01:00 Completed Troponin I Stat Lab 08/05/24 01:00 Completed UA [Urinalysis] Stat Lab 08/05/24 00:57 Completed Sodium Chloride 0.9% 1000 ml [Ns] 1,000 ml Med 08/05/24 01:28 Discontinued IV 999 mls/hr cefTRIAXone/D5w 1gm IV premix [Rocephin/D5w 1gm IV Med 08/05/24 04:53 Active premix] 1 gm in 50 ml IV X1 Vital Signs Vital signs: Vital Signs Pulse Rate 85 08/05/24 00:08 Respiratory Rate 22 H 08/05/24 00:08 Pulse Oximetry (%) 88 L 08/05/24 00:08 Procedures -ED EKG Interpretation #1: Date of EK08/05/24 Time of EK:06 Rate: 84 Interpretation: Interpreted by me Additional EKG comment: Sinus rhythm. Heart rate 84. MN interval 163. QTc 417. No elevations or depressions. Low voltage. Impression no ST elevation NE. Stool Hemoccult Procedural Steps Taken: stool placed in appropriate test area, developer placed on stool and control areas and controls appropriately positive and negative Hemoccult result: negative Altered Mental Status MDM Narrative MDM Narrative:: Differential diagnosis includes syncope, dehydration, electrolyte malady, seizure, head bleed, UTI, GI bleed, This is a 64-year-old female presenting to the emergency department from a long term with possible syncope versus unwitnessed seizure. En route to the emergency department the patient's altered mental status slightly improved and that is why we suspect that she may be postictal. On arrival to the emergency department blood pressure is 126/76 with a temp of 99.2. Nasal cannula is 96 on 2 L. Urinalysis shows that the patient has a UTI. However she did vomit here and my concern is that if she did have a seizure that she may have aspirated. The patient normally is not on oxygen. Plan will be to add a lactic acid to ensure that she does not have occult bacteremia, treat her UTI, and likely admit since she she did have Alterman status and or syncopal episode. CT scan is pending. Scribe Attestation: 08/05/2024 - Carmella, Baylee Hernandez am scribing for and in the presence of Dr. Rodriguez. Provider Notation: Although this document has been carefully reviewed, there may still be some phonetic and other typographical errors. These errors are purely grammatical due to imperfections in the software program and should not be construed in any way to compromise the substance of the patient's medical care during this visit. Differential diagnosis includes syncope, dehydration, electrolyte malady, seizure, head bleed. No documented trauma per Patient data External records reviewed:: [facility] previous records (Reviewed prior ED records from 03/16/24. Patient was seen for GABRIEL (acute kidney injury).) and EMS form Clinical information provided by:: EMS and family (Daughter) Social determinants that could affect healthcare access:: housing (SNF) Patient has the following chronic illnesses:: Seizures, Epilepsy, Hypercholesterolemia, Hypertension, Hypothyroidism How is presenting disease/condition affected by chronic disease/condition?: exacerbated by Evaluation data The following diagnostics were reviewed and interpreted by me:: lab results and radiology exam(s) Lab and/or radiology exams considered but not ordered:: None Interpretation Summary: RADIOLOGY Chest X-Ray: Pending official radiology report. Head CT: Pending official radiology report. LABS RBC 3.76, Hgb 10.2, Hct 30.0%, Plt Count 95, Lumph # 0.5, Immature Gran # 0.02, Immature Gran % 1%. Sodium 135, Potassium 2.8, Estimated Creatinine Clear Calc 53.7, eGFR 51, Glucose 140, Calculated Osmolality 273, Calcium 7.2, Corrected Calcium 7.5, Total Bilirubin 0.2, AST 66. Urine Clarity Turbid, Urine Protein 1+, Urine RBC 31, Urine WBC 488. Toxicology all negative. Medications / Prescriptions Medications or Prescriptions considered but not ordered:: None Medication administrations:: Medication Administration History Discontinued Medications Sodium Chloride (Ns) 1,000 mls @ 999 mls/hr IV .Q1H1M ONE Stop: 08/05/24 02:28 Last Admin: 08/05/24 01:40 Dose: 999 mls/hr Documented By: Ceftriaxone Sodium/Dextrose (Rocephin/D5w 1gm Iv Premix) 1 gm in 50 mls @ 100 mls/hr IV X1 ONE Stop: 08/05/24 05:22 Last Admin: 08/05/24 05:30 Dose: 100 mls/hr See above if any Consultations Consultation(s) initiated? (list below): Yes Consultation #1 (Physician, Specialty, Details): Dr. Mike made aware of the patient?s HPI, PMHx, lab and/or radiology results. Discussed treatment plan. ED documentation was reviewed including triage complaint, associated symptoms, administration of medications, labs and/or radiology results. Given the history, physical exam, and review of laboratory and imaging studies the patient is determined to have significant findings indicative of admission at this time. Hospitalist accepts patient for admission. Time: 05:42 Diagnosis Differential diagnosis altered mental status: other (syncope, dehydration, electrolyte abnormality, seizure, head bleed) Most likely diagnosis given after review of the tests above:: Hypokalemia, UTI Admission Indicated Admission indicated?: indicated Explain why admission is indicated or not indicated:: Hypokalemia, UTI Admission Request Was there a request for admission?: Yes Admission Attestation Admission request attestation: Discussed case with [] from Hospitalist service regarding admission. Discussed patients ED course, exam findings, labs, and radiology results. The Hospitalist [agrees,declines] to accept the patient for admission. Disposition Plan Disposition Plan: Admit Discharge Plan Plan Patient Disposition: Admit Acute Care w/in Hospital Prescriptions/Referrals Prescriptions/Med Rec: No Action cetirizine 10 mg Tablet 10 mg PO QDAY ferrous sulfate [FeroSul] 325 mg (65 mg iron) Tablet 325 mg PO QDAY olopatadine 0.1 % drops 1 drp OPHTHALMIC (EYE) BID hydroxyzine HCl 25 mg tablet 25 mg PO HS fluticasone propionate 50 mcg/actuation [place],Suspension 2 spray INTRANASAL QDAY Rx Instructions: administer into each nostril cephalexin 500 mg capsule 500 mg PO BID Qty: 10 0RF potassium chloride 20 mEq tablet extended release 20 meq PO QDAY Qty: 5 0RF calcium carbonate 260 mg calcium (648 mg) tablet 260 mg PO QDAY Qty: 30 0RF levothyroxine 112 mcg tablet 112 mcg PO ACBR losartan 50 mg tablet 50 mg PO QDAY levetiracetam 500 mg tablet 500 mg PO BID simvastatin 40 mg tablet 40 mg PO HS zonisamide 100 mg capsule 200 mg PO BID carbamazepine 200 mg tablet 200 mg PO BID magnesium oxide 400 mg (241.3 mg magnesium) tablet 400 mg PO QDAY oxybutynin chloride 5 mg tablet 5 mg PO QDAY risperidone 0.5 mg tablet 0.25 mg PO BID Rx Instructions: 0.25 mg po AM & HS Referrals: Sirena Sandhu FNP [Primary Care Provider] - In 1 week Problem List Clinical Impression: Acute hypokalemia, UTI (urinary tract infection) Patient/Caregiver Discharge Instructions Education Materials: Causes of Syncope Print Language: Pashto Stand Alone Forms: Ana Award Info., Patient Portal Info Letter
[2024-08-05 01:22] LABS: Bacteria,Urine Rare; Bilirubin,Urine Negative (Negative); Blood,Urine Trace (Negative); Clarity,Urine Turbid (Clear/Hazy); Color,Urine Yellow (Lt Yel-Yel); Glucose, Urine Negative (Negative); Hyaline Casts,Urine < 1 /hpf (0-1); Ketones,Urine Negative (Negative); Leukocyte Esterase,Urine Positive (Negative); Nitrite,Urine Negative (Negative); PH,Urine 6.5 (5.0-7.0); Protein,Urine 1+ (Neg - Trace); RBC,Urine 31 /hpf (0-3); Specific Gravity,Urine 1.031 (1.001-1.035); Squamous Epithelial Cell,Urine < 1 /hpf (0-5); Transitional Epi Cells,Urine 1 /hpf (0-5); Urobilinogen,Urine Negative mg/dL (0.0-1.0); WBC,Urine 488 /hpf (0-5)
--- NOTE | 2024-08-05 01:22 | XR_ITS ---
Examination: AP chest single view Technique one AP portable semiupright chest single view Date and time: August 05, 2024 0135 hours Comparison March 16, 2024 INDICATIONS: Altered mental status today. FINDINGS: Mild pneumonia left base retrocardiac obscuring detail hemidiaphragm Right lung clear Mild to moderate enlargement left ventricle IMPRESSION: Left basilar pneumonia consider aspiration pneumonia
[2024-08-05 01:30] LABS: Amphetamine/Methamp Scrn,U Negative (Negative); Barbiturate Screen,Urine Negative (Negative); Benzodiazepines Screen,Urine Negative (Negative); Benzoylecgonine Screen, Ur Negative (Negative); Fentanyl Screen,Urine Negative (Negative); Opiate Screen,Urine Negative (Negative); THC Screen,Urine Negative (Negative)
[2024-08-05] MEDS: SODIUM CHLORIDE 0.9% 1000 ML 1,000 ML 999 ML IV (01:40)
[2024-08-05 01:42] LABS: Lactate (Lactic Acid) 1.5 mMol/L (0.4-2.0)
[2024-08-05 01:43] LABS: Basophils % (Auto) 0 % (0-2.5); Eosinophils % (Auto) 0 % (0-10); Hemoglobin 10.2 g/dL (12.0-16.0); Immature Granulocytes % (Auto) 1 % (0-0); Immature Granulocytes Auto 0.02 Thou/mm3 (0.00-0.00); Lymphocytes # (Auto) 0.5 Thou/mm3 (1.0-4.8); Lymphocytes % (Auto) 12 % (10-50); Mean Corpuscular Hemoglobin 27.1 pg (25.0-35.0); Mean Corpuscular Volume 80 fL (80-100); Monocytes # (Auto) 0.3 Thou/mm3 (0.0-0.8); Monocytes % (Auto) 7 % (0-12); Neutrophils # (Auto) 3.5 Thou/mm3 (1.8-7.7); Neutrophils % (Auto) 80 % (37-80); Nucleated Red Blood Cell % 0 /100 WBC (0); Platelet Count 95 Thou/mm3 (140-440); RDW Standard Deviation 41.6 fL (36.4-46.3); Red Blood Count 3.76 Miln/mm3 (4.00-5.20); White Blood Count 4.4 Thou/mm3 (3.6-11.0)
[2024-08-05 02:20] LABS: Alanine Aminotransferase 48 U/L (10-49); Albumin, Serum 3.6 gm/dL (3.4-4.8); Albumin/Globulin Ratio 1.5 (1.2-2.2); Alcohol, Blood Medical < 3.0 mg/dL (0-10.0); Alkaline Phosphatase 113 U/L (46-116); Anion Gap 13 (7-16); Aspartate Amino Transferase 66 U/L (0-34); BUN/Creatinine Ratio 14 Ratio (12-20); Bilirubin,Total 0.2 mg/dL (0.3-1.2); Blood Urea Nitrogen 17 mg/dL (9-23); Calcium 7.2 mg/dL (8.3-10.6); Calcium (Corrected) 7.5 mg/dL (8.5-10.1); Chloride 100 mMol/L (98-107); Creatinine (Component) 1.2 mg/dL (0.6-1.3); Estimated Creatinine Clearance 53.7 mL/min (>60); Globulin 2.4 gm/dL (2.3-3.5); Glucose 140 mg/dL (74-106); Osmolality,Calculated 273 (275-295); Potassium 2.8 mMol/L (3.4-5.1); Sodium 135 mMol/L (136-145); eGFR 51 See Note
--- NOTE | 2024-08-05 02:55 | PC.NURSE ---
on arrival, pt was confused sleeping and irritable. care provider at bedside states she is mostly back to her normal mental status.
--- NOTE | 2024-08-05 04:19 | PRELIM_ITS ---
CT scan of the head without intravenous contrast (axial sections with sagittal and coronal reformats): August 05, 2024 at 0257 hours Clinical History: Possible seizure. Comparison: None. Findings: There is no evidence of intracranial hemorrhage, mass effect or midline shift. There are periventricular white matter hypodensities, compatible with chronic small vessel ischemia. There is mild volume loss. The calvarium is intact. The mastoid air cells and the visualized paranasal sinuses are clear. Impression: No evidence of intracranial hemorrhage, midline shift or calvarial fracture. Periventricular chronic small vessel ischemia and volume loss. Report Electronically Signed By: Oscar Vera 08/05/2024 4:19:13 AM [EST]
--- NOTE | 2024-08-05 04:25 | PC.NURSE ---
iv NS was given useing 18g to the L hand
--- NOTE | 2024-08-05 04:40 | PC.NURSE ---
pt is awake alert and is hungry
[2024-08-05] MEDS: cefTRIAXone/D5w 1gm IV premix 1 GM/50 ML BAG IV (05:30)
--- NOTE | 2024-08-05 06:03 | PD.RESHP ---
Documentation for date of: 08/05/24 HPI History of Present Illness Chief complaint: AMS History of present illness: Patient is a 64-year-old female with past medical history of developmental delay, seizure disorder, hypertension, hyperlipidemia, hypoparathyroidism, hypothyroidism, and hypocalcemia who presented to the ED from [facility] on 08/05/2024 due to episode of altered mental status. Caregiver is present at the bedside to assist in providing history. Patient was apparently ill earlier today with a fever, had some diarrhea and vomiting and was given Tylenol. She ambulated to the restroom guided by staff and they noted that she was not coherent, patient was guided to the floor. It is uncertain whether there were any seizure-like movements. By the time EMS arrived she was not arousable and was GCS 3. Patient was suspected to have a seizure and was sleeping for about 2 hours, subsequently in the ED patient became awake and interactable. Patient is alert at the time of evaluation, able to state her name and express that she is hungry. She denies any abdominal pain or other complaints. ED Course: -Initial vitals were BP 126/76, HR 85, RR 22, Temp 99.2, O2 88 on 2L NC -Labs significant for chronic normocytic anemia Hgb 10.2, potassium 2.8, corrected calcium 7.5 -UA showed positive leukocyte esterase, 31 RBCs and 488 WBCs with rare bacteria -Head CT was negative -CXR showed possible bibasilar infiltrates -In the ED, patient was given 1L NS IV fluids and ceftriaxone 1 g IV x1 -Patient was admitted for further management of UTI s/p suspected seizure and electrolyte abnormalities Review of Systems Review of systems otherwise negative except what is mentioned above. Past Medical History Past Medical History Comments [facility] COMMENT: Past Medical History: Developmental delay, seizure disorder, hypertension, hyperlipidemia, hypoparathyroidism, hypothyroidism, and hypocalcemia Family History: Unknown Surgical History: Right hip replacement Social History: Denies history of smoking, denies current alcohol use, denies recreational drug use Current Medications: Include Keppra 500 mg BID, carbamazepine 200 mg BID, and zonisamide 200 mg BID, pending med rec Allergies: No known drug allergies Exam Vital Signs Temp Pulse Resp BP Pulse Ox O2 Del Method O2 Flow Rate 97.8 F 65 18 105/72 92 L Room Air 2 08/05/24 05:44 08/05/24 05:44 08/05/24 05:44 08/05/24 05:44 08/05/24 05:44 08/05/24 05:44 08/05/24 00:30 Narrative Exam Physical Exam General: Asleep but arousable to voice, in no acute distress. Conversational, cheerful and non-toxic appearing. HEENT: Normocephalic, atraumatic, mucous membranes moist. Round dark pink lesion in center of tongue about 5 mm. Heart: Regular rate and rhythm, normal S1 and S2, no murmurs. Lungs: Clear to auscultation with no wheezing or crackles. Abdomen: Soft, nondistended, nontender, positive bowel sounds. ?No guarding or rebound tenderness. Neurologic: Alert and oriented x2, no gross neurological deficit, and patient able to move all 4 extremities. Extremities: No edema. Skin: No rash or ecchymoses. Results: Labs 08/05/24 01:00 08/05/24 01:00 Labs: Short CBC 08/05/24 Range/Units 01:00 WBC 4.4 (3.6-11.0) Thou/mm3 Hgb 10.2 L (12.0-16.0) g/dL Hct 30.0 L (36.0-46.0) % Plt Count 95 L (140-440) Thou/mm3 BMP 08/05/24 01:00 Sodium 135 L Potassium 2.8 L Chloride 100 Carbon Dioxide 22.0 BUN 17 Creatinine 1.2 Glucose 140 H Calcium 7.2 L Cardiac Enzymes 08/05/24 Range/Units 01:00 Troponin I 0.020 (0.0-0.045) ng/mL Liver Function 08/05/24 Range/Units 01:00 Total Bilirubin 0.2 L (0.3-1.2) mg/dL AST 66 H (0-34) U/L ALT 48 (10-49) U/L Alkaline Phosphatase 113 (46-116) U/L Albumin 3.6 (3.4-4.8) gm/dL Urine 08/05/24 Range/Units 00:57 Urine Color Yellow (Lt Yel-Yel) Urine Clarity Turbid A (Clear/Hazy) Urine pH 6.5 (5.0-7.0) Ur Specific [place] 1.031 (1.001-1.035) Urine Protein 1+ A (Neg - Trace) Urine Glucose (UA) Negative (Negative) Quality Measures Quality Measures none Medications Home Medications and Allergies Home Medications ?Medication ?Instructions ?Recorded ?Confirmed ?Type carbamazepine 200 mg tablet 200 mg PO BID 02/15/23 03/16/24 History levetiracetam 500 mg tablet 500 mg PO BID 02/15/23 03/16/24 History levothyroxine 112 mcg tablet 112 mcg PO ACBR 02/15/23 03/16/24 History losartan 50 mg tablet 50 mg PO QDAY 02/15/23 03/16/24 History magnesium oxide 400 mg (241.3 mg 400 mg PO QDAY 02/15/23 03/16/24 History magnesium) tablet oxybutynin chloride 5 mg tablet 5 mg PO QDAY 02/15/23 03/16/24 History risperidone 0.5 mg tablet 0.25 mg PO BID 02/15/23 03/16/24 History simvastatin 40 mg tablet 40 mg PO HS 02/15/23 03/16/24 History zonisamide 100 mg capsule 200 mg PO BID 02/15/23 03/16/24 History cetirizine 10 mg tablet 10 mg PO QDAY 03/16/24 03/16/24 History ferrous sulfate 325 mg (65 mg 325 mg PO QDAY 03/16/24 03/16/24 History iron) tablet (FeroSul) fluticasone propionate 50 2 spray intranasal QDAY 03/16/24 03/16/24 History mcg/actuation nasal spray,suspension hydroxyzine HCl 25 mg tablet 25 mg PO HS 03/16/24 03/16/24 History olopatadine 0.1 % eye drops 1 drp ophthalmic (eye) BID 03/16/24 03/16/24 History Allergies Allergy/AdvReac Type Severity Reaction Status Date / Time No Known Allergies Allergy Verified 08/05/24 00:40 Visit Medications Discontinued Medications Sodium Chloride (Ns) 1,000 mls @ 999 mls/hr IV .Q1H1M ONE Stop: 08/05/24 02:28 Last Infusion: 08/05/24 01:40 Dose: Infused Ceftriaxone Sodium/Dextrose (Rocephin/D5w 1gm Iv Premix) 1 gm in 50 mls @ 100 mls/hr IV X1 ONE Stop: 08/05/24 05:22 Last Admin: 08/05/24 05:30 Dose: 100 mls/hr Assessment & Plan Plan 64-year-old female with past medical history of developmental delay, seizure disorder, hypertension, hyperlipidemia, hypoparathyroidism, hypothyroidism, and hypocalcemia who presented to the ED from [facility] on 08/05/2024 due to episode of altered mental status. She was subsequently found to have UTI and admitted for further management. #UTI UA showed positive leukocyte esterase, 31 RBCs and 488 WBCs with rare bacteria. Currently patient is not endorsing any pain or urinary symptoms but caregivers described that patient had been feeling ill earlier with diarrhea, fever, and vomiting. Previous cultures showed pansensitive E. coli therefore started on ceftriaxone. Underlying infection may have triggered breakthrough seizure. -Continue ceftriaxone 1 g qday -Continue IV fluids -Urine culture sent -Acetaminophen as needed for fever or pain -Zofran as needed for nausea #S/p breakthrough seizure #History of seizure disorder Patient had episode of altered mental status followed by what appeared to be a post-ictal event. On examination patient also has evidence of tongue biting. -Continue home levetiracetam 500 mg BID -Continue home carbamazepine 200 mg BID -Continue home zonisamide 200 mg BID #Electrolyte abnormalities #Hypokalemia #Hypocalcemia On admission potassium was 2.8, calcium was 7.5, patient known to have low levels and is on supplements. -Replete -Repeat renal panel scheduled #History of hypertension #History of hyperlipidemia #History of hypothyroidism -Continue home medications with med rec DVT prophylaxis: Heparin 5,000 U subQ GI prophylaxis: Not indicated Diet: Cardiac Garcia: None Lines: Peripheral IV Antibiotics: Ceftriaxone [08/05- ] CODE STATUS: FULL Reason for hospitalization: UTI and electrolyte abnormalities Patient plan of care was discussed with the attending physician, Dr. Mike. Nola Koch, PGY-2 Attending Provider Attestation/Addendum I have examined the patient, reviewed labs and imaging findings, discussed the case with the resident(s), and reviewed entered orders. I agree with the plan of care as outlined in this note, with these additional summaries/recommendations: 64-year-old female with history of developmental delay, seizure disorder, hypoparathyroidism, hypocalcemia, hypothyroidism presented to ED with from SNF with chief complaint of altered mental status after she was found to be altered when returning from the bathroom. Patient appeared to be postictal and suspect she may have a seizure episode although unwitnessed. Patient's mental status continues to be altered until about 2-1/2 hours later where she appeared to return to normal. CT head negative in the ER. Labs showed sodium 135, potassium 3.8, calcium 7.5, AST 66, urine with 180 WBCs and rare bacteria, diarrhea, fever and vomiting. Will initiate patient on antibiotics, seizure precautions, restart home medications. Lam Mike MD
[2024-08-05] MEDS: POTASSIUM CHLORIDE 10% 20 MEQ/15 ML UDC 40 MEQ PO (06:54)
[2024-08-05] MEDS: POTASSIUM CHL 10 mEq IVPB 10 MEQ/100 ML BAG 100 MEQ IV ×2 (06:55→08:38)
[2024-08-05] MEDS: SODIUM CHLORIDE 0.9% 1000 ML 1,000 ML 75 ML IV (06:56)
[2024-08-05] MEDS: ZONISAMIDE 100 MG CAPSULE 200 MG PO ×2 (09:56→20:50)
[2024-08-05] MEDS: levETIRAcetam 250 MG TABLET 500 MG PO ×2 (09:56→20:50)
[2024-08-05] MEDS: CALCIUM GLUCONATE 10% INJ 1 GM/10 ML VIAL IV (09:56)
[2024-08-05] MEDS: Magnesium Sulfate 4 GM Ivpb 4 GM/50 ML BAG IV (09:57)
[2024-08-05] MEDS: HEPARIN SOD INJ 5000 UNIT/ML VIAL SC ×2 (09:57→20:51)
[2024-08-05] MEDS: carBAMazepine 200 MG TABLET PO ×2 (11:01→20:50)
--- NOTE | 2024-08-05 12:50 | ESPR_ITS ---
Documentation for date of: 08/05/24 Subjective Subjective Interval history: Patient seen today at the bedside fine awake, alert, oriented x 3. No overnight events reported. States no active complaints wants hamburger with onions, tomato no lettuce. Vital signs stable at this time. Per caregiver who was at the bedside when I examined the patient in the ER stated patient was back to baseline. At this time we will continue with IV antibiotics while awaiting cultures and will repeat a renal panel in the afternoon to evaluate electrolyte abnormalities. Exam Vital Signs Temp Pulse Resp BP Pulse Ox O2 Del Method O2 Flow Rate 97.8 F 66 15 155/93 H 100 Room Air 2 08/05/24 12:00 08/05/24 12:00 08/05/24 12:00 08/05/24 12:00 08/05/24 12:00 08/05/24 12:00 08/05/24 12:00 Narrative Exam Physical Exam GENERAL: NAD, AAOx3 HEENT: Moist mucosa. Eyes open, symmetrical, & clear, tongue bitten CARDIO: Heart RRR, no obvious murmurs PULM: No noted coughing/dyspnea CTA B/L, no R/W/R GI: Abdomen soft, nondistended, no pain on palpation. BSx4 SKIN/MSK/EXT: No wounds/rashes/edema/amputations, no pain on palpation. Pedal pulses present B/L NEURO: AAOx3, no focal neuro deficits, able to move all 4 extremities Objective Labs 08/05/24 01:00 08/05/24 13:30 Labs: Laboratory Results - last 24 hr 08/05/24 08/05/24 00:57 01:00 WBC 4.4 RBC 3.76 L Hgb 10.2 L Hct 30.0 L MCV 80 MCH 27.1 MCHC 34.0 RDW Std Deviation 41.6 Plt Count 95 L Neut % (Auto) 80 Lymph % (Auto) 12 [place] % (Auto) 7 Eos % (Auto) 0 Baso % (Auto) 0 Neut # (Auto) 3.5 Lymph # (Auto) 0.5 L [place] # (Auto) 0.3 Eos # (Auto) 0.0 Baso # (Auto) 0.0 Immature Gran # (Auto) 0.02 H Absolute Nucleated RBC 0.00 Immature Gran % 1 H Nucleated RBC % 0 Sodium 135 L Potassium 2.8 L Chloride 100 Carbon Dioxide 22.0 Anion Gap 13 BUN 17 Creatinine 1.2 Estim Creat Clear Calc 53.7 L eGFR 51 L BUN/Creatinine Ratio 14 Glucose 140 H Calculated Osmolality 273 L Lactic Acid 1.5 Calcium 7.2 L Corrected Calcium 7.5 L Total Bilirubin 0.2 L AST 66 H ALT 48 Alkaline Phosphatase 113 Troponin I 0.020 Total Protein 6.0 Albumin 3.6 Globulin 2.4 Albumin/Globulin Ratio 1.5 Ur Collection Type Catheter Urine Color Yellow Urine Clarity Turbid A Urine pH 6.5 Ur Specific [place] 1.031 Urine Protein 1+ A Urine Glucose (UA) Negative Urine Ketones Negative Urine Blood Trace Urine Nitrite Negative Urine Bilirubin Negative Urine Urobilinogen (Auto) Negative Ur Leukocyte Esterase Positive Urine RBC 31 H Urine WBC 488 H Ur Squamous Epith Cells < 1 Ur Transition Epith Cell 1 Urine Bacteria Rare Hyaline Casts < 1 Urine Opiates Screen Negative Urine Fentanyl Screen Negative Ur Barbiturates Screen Negative U Amphetamin/Meth Scrn Negative U Benzodiazepines Scrn Negative U Cocaine Metab Screen Negative U Marijuana (THC) Screen Negative Ethyl Alcohol < 3.0 Quality Measures Quality Measures none Assessment & Plan Assessment Current Active Medications: Generic Name Dose Route Start Last Admin Trade Name Freq PRN Reason Stop Dose Admin Acetaminophen 650 mg 08/05/24 06:05 Acetaminophen 325 Mg Tablet PO 09/04/24 06:04 Q6H PRN Fever >100.3 or pain 1-10 Carbamazepine 200 mg 08/05/24 09:00 08/05/24 11:01 Carbamazepine 200 Mg Tablet PO 09/04/24 08:59 200 mg BID MARKEL Administration Heparin Sodium (Porcine) 5,000 unit 08/05/24 09:00 08/05/24 09:57 Heparin Sod Inj 5000 Unit/Ml Vial SC 08/19/24 08:59 5,000 unit Q12HR MARKEL Administration Ceftriaxone Sodium/Dextrose 1 gm in 50 mls @ 100 mls/hr 08/06/24 09:00 Rocephin/D5w 1gm Iv Premix IV 08/13/24 08:59 QDAY MARKEL Sodium Chloride 1,000 mls @ 75 mls/hr 08/05/24 06:13 08/05/24 06:56 Ns IV 08/05/24 19:32 75 mls/hr .[id number] MARKEL Administration Levetiracetam 500 mg 08/05/24 09:00 08/05/24 09:56 Levetiracetam 250 Mg Tablet PO 09/04/24 08:59 500 mg BID MARKEL Administration Ondansetron HCl 4 mg 08/05/24 06:05 Ondansetron Inj 2 Mg/Ml Inj 2 Ml IVP 09/04/24 06:04 Q6H PRN NAUSEA OR VOMITING Protocol Zonisamide 200 mg 08/05/24 09:00 08/05/24 09:56 Zonisamide 100 Mg Capsule PO 09/04/24 08:59 200 mg BID MARKEL Administration Plan 64-year-old female with past medical history of developmental delay, seizure disorder, hypertension, hyperlipidemia, hypoparathyroidism, hypothyroidism, and hypocalcemia who presented to the ED from [facility] on 08/05/2024 due to episode of altered mental status. She was subsequently found to have UTI and admitted for further management. #UTI Patient came with AMS, however now at baseline mentation, etiology can include breakthrough seizure, however no seizure activity was witnessed vs UTI UA showed positive leukocyte esterase, 31 RBCs and 488 WBCs with rare bacteria. Currently patient is not endorsing any pain or urinary symptoms but caregivers described that patient had been feeling ill earlier with diarrhea, fever, and vomiting. Previous cultures showed pansensitive E. coli therefore started on ceftriaxone. Underlying infection may have triggered breakthrough seizure. -Continue ceftriaxone 1 g qday -Continue IV fluids -Urine culture pending -Acetaminophen as needed for fever or pain -Zofran as needed for nausea #S/p breakthrough seizure #History of seizure disorder Patient had episode of altered mental status followed by what appeared to be a post-ictal event. On examination patient also has evidence of tongue biting. Patient is at baseline mental status at this time -Continue home levetiracetam 500 mg BID -Continue home carbamazepine 200 mg BID -Continue home zonisamide 200 mg BID #Electrolyte abnormalities #Hypokalemia #Hypocalcemia On admission potassium was 2.8, calcium was 7.5, patient known to have low levels and is on supplements. -Replete as necessary -Repeat renal panel scheduled #History of hypertension #History of hyperlipidemia #History of hypothyroidism -Continue home medications with med rec DVT prophylaxis: Heparin GI prophylaxis: Not indicated Diet: Cardiac Garcia: None Lines: Peripheral IV Antibiotics: Ceftriaxone [08/05- ] CODE STATUS: FULL Case discussed with my attending Dr. Poncho Hamilton MD PGY-1 Attending Provider Attestation/Addendum I, Meeta Isaac, , attest that I was physically present for the johnson portions of the service and evaluated the patient with the resident and I reviewed and discussed the case with the resident and agree with the resident's findings and plans of care as documented above Patient seen and eval this a.m. She is currently back at her baseline mental status. Patient states she collapsed yesterday when she was going to the bathroom. Patient likely had seizure due to electrolyte imbalance. She states that she had been feeling well prior to the incident. Patient is drowsy, but easy to arouse and states that she wants to eat. Pending urine cultures and blood cultures at this time. She is currently afebrile otherwise. Will repeat renal panel in the afternoon. Patient appears to have pancytopenia which is chronic, likely due to her antiepileptic medications causing bone marrow suppression. Will follow-up with cultures and continue with antibiotics at this time.
[2024-08-05 14:04] LABS: Albumin, Serum 3.7 gm/dL (3.4-4.8); Anion Gap 10 (7-16); BUN/Creatinine Ratio 17 Ratio (12-20); Blood Urea Nitrogen 17 mg/dL (9-23); Calcium 6.9 mg/dL (8.3-10.6); Calcium (Corrected) 7.1 mg/dL (8.5-10.1); Carbon Dioxide 26.2 mMol/L (20.0-31.0); Chloride 103 mMol/L (98-107); Estimated Creatinine Clearance 66.2 mL/min (>60); Glucose 109 mg/dL (74-106); Magnesium 2.1 mg/dL (1.6-2.6); Osmolality,Calculated 280 (275-295); Phosphorous 3.1 mg/dL (2.4-5.1); Potassium 3.4 mMol/L (3.4-5.1); Sodium 139 mMol/L (136-145); eGFR > 60 See Note
[2024-08-06] VITALS (8 sets, daily range): BP systolic 116–152; BP diastolic 77–91; PULSE 71–98; RESP 16–97; TEMP 36.2–37.2; O2SAT 92–96; BMI 26.1
[2024-08-06 06:38] LABS: Alanine Aminotransferase 35 U/L (10-49); Albumin, Serum 3.3 gm/dL (3.4-4.8); Albumin/Globulin Ratio 1.4 (1.2-2.2); Alkaline Phosphatase 100 U/L (46-116); Anion Gap 10 (7-16); Aspartate Amino Transferase 38 U/L (0-34); BUN/Creatinine Ratio 18 Ratio (12-20); Bilirubin,Total 0.2 mg/dL (0.3-1.2); Blood Urea Nitrogen 18 mg/dL (9-23); Chloride 104 mMol/L (98-107); Estimated Creatinine Clearance 64.5 mL/min (>60); Globulin 2.3 gm/dL (2.3-3.5); Glucose 97 mg/dL (74-106); Magnesium 1.7 mg/dL (1.6-2.6); Osmolality,Calculated 275 (275-295); Phosphorous 4.1 mg/dL (2.4-5.1); Potassium 3.3 mMol/L (3.4-5.1); Sodium 137 mMol/L (136-145); Thyroid Stimulating Hormone 4.01 uIU/mL (0.55-4.78); Total Protein 5.6 gm/dL (5.7-8.2); eGFR > 60 See Note
[2024-08-06 06:59] LABS: Calcium (Corrected) 7.6 mg/dL (8.5-10.1)
[2024-08-06 07:06] LABS: Basophils % (Auto) 0 % (0-2.5); Eosinophils % (Auto) 0 % (0-10); Hematocrit 29.2 % (36.0-46.0); Hemoglobin 9.7 g/dL (12.0-16.0); Immature Granulocytes % (Auto) 0 % (0-0); Immature Granulocytes Auto 0.01 Thou/mm3 (0.00-0.00); Lymphocytes # (Auto) 1.1 Thou/mm3 (1.0-4.8); Lymphocytes % (Auto) 33 % (10-50); Mean Corpuscular HGB Conc 33.2 g/dl (31.0-37.0); Mean Corpuscular Hemoglobin 27.2 pg (25.0-35.0); Mean Corpuscular Volume 82 fL (80-100); Monocytes # (Auto) 0.2 Thou/mm3 (0.0-0.8); Monocytes % (Auto) 7 % (0-12); Neutrophils % (Auto) 59 % (37-80); Nucleated Red Blood Cell % 0 /100 WBC (0); Platelet Count 88 Thou/mm3 (140-440); RDW Standard Deviation 42.5 fL (36.4-46.3); Red Blood Count 3.57 Miln/mm3 (4.00-5.20); White Blood Count 3.3 Thou/mm3 (3.6-11.0)
[2024-08-06] MEDS: CALCIUM GLUCONATE 10% INJ 1 GM/10 ML VIAL 2 GM IV (08:34)
[2024-08-06] MEDS: POTASSIUM CHLORIDE 20 mEq TABCR 40 MEQ PO (09:36)
[2024-08-06] MEDS: levETIRAcetam 250 MG TABLET 500 MG PO ×2 (09:37→21:00)
[2024-08-06] MEDS: cefTRIAXone/D5w 1gm IV premix 1 GM/50 ML BAG IV (09:37)
[2024-08-06] MEDS: HEPARIN SOD INJ 5000 UNIT/ML VIAL SC ×2 (09:49→20:55)
[2024-08-06] MEDS: BENZONATATE 100 MG CAPSULE PO ×2 (10:36→21:00)
[2024-08-06] MEDS: carBAMazepine 200 MG TABLET PO ×2 (10:37→20:56)
[2024-08-06] MEDS: ZONISAMIDE 100 MG CAPSULE 200 MG PO ×2 (10:37→20:56)
--- NOTE | 2024-08-06 11:45 | PD.NEPHCONS ---
History of Present Illness Data of Consult Consult date: 08/06/24 Requesting Physician: Lam Mike MD Primary Care Provider: YANI Solano Consult Narrative Reason for consult: Hypocalcemia History of present illness: Chart review done as patient has developmental delay and could not give much information. No family or care provider at bedside. Ms. Ac is a 64-year-old female with past medical history of developmental delay, seizure disorder, hypertension, hyperlipidemia, hypoparathyroidism(idiopathic), hypothyroidism, recurrent episodes of hypocalcemia(currently followed up by me at CKD clinic), presented to the ED due to seizure-like activity, altered mental status. Patient has history of seizure disorder is seen by neurologist Dr. Elizondo. In the emergency department labs showed WBC 3.3, hemoglobin 9.7, platelets 88. Coags normal. Sodium 135, potassium 2.8, BUN 17, creatinine 1.2, GFR 51, calcium 7.5, AST 66, ALT 48, alk phos 113, albumin 3.6, (patient had similar episode in March and that time her PTH was 9.6, vitamin D and 125 vitamin D were normal, TSH normal) urinalysis showed pyuria. Urine tox screen negative head CT negative chest x-ray showed questionable left base pneumonia. Home medications include calcitriol 0.25 mcg p.o. daily, calcium carbonate, Tegretol, iron, Keppra, levothyroxine, losartan, magnesium, oxybutynin, risperidone, simvastatin, zonisamide Normal saline fluid boluses, IV calcium gluconate were given for hypocalcemia and renal consultation was requested. 08/06/2024 patient currently seen in medical floor. Seizure precautions noted. Is developmentally delayed. Calcium 7.0, phosphorus 3.4, magnesium 1.7 cc:: cc: Lam Mike MD Review of Systems Review of Systems Narrative Review of Systems: Patient with developmental delay. Complaining of cough. Denies any chest pain, shortness of breath. Past Medical History Past Medical History NEUROLOGIC: Positive Neurological Disorders, Seizures and Epilepsy CARDIAC: Positive Cardiac Disorders, Hypercholesterolemia and Hypertension; Negative Congestive Heart Failure RESPIRATORY: Negative Chronic Obstructive Pulmonary Disease (COPD) or Asthma GENITOURINARY: Negative Renal Disease REPRODUCTIVE: Negative Breast Cancer MUSCULOSKELETAL: Negative Musculoskeletal Disorders ENDOCRINE: Positive Hypothyroidism; Negative Diabetes Mellitus Type 1 or Diabetes Mellitus Type 2 OTHER HISTORY: Positive Falls; Negative Blood Transfusions, Blood Transfusion Reaction, Anesthesia Reactions, Clostridium Difficile, Cancer or Breast Cancer Family History FAMILY HISTORY: Positive Family Respiratory Disorders and Family Cardiac Disorders Surgical History SURGICAL: Negative Endocrine Surgery or Ear Surgery Social History SMOKING STATUS: Never smoker Past Medical History Comments PMH COMMENT: Past Medical History: Developmental delay, seizure disorder, hypertension, hyperlipidemia, hypoparathyroidism, hypothyroidism, and hypocalcemia Family History: Unknown Surgical History: Right hip replacement Social History: Denies history of smoking, denies current alcohol use, denies recreational drug use Current Medications: Include Keppra 500 mg BID, carbamazepine 200 mg BID, and zonisamide 200 mg BID, pending med rec Allergies: No known drug allergies Meds Home Medications and Allergies Home Medications ?Medication ?Instructions ?Recorded ?Confirmed ?Type carbamazepine 200 mg tablet 200 mg PO BID 02/15/23 08/05/24 History levetiracetam 500 mg tablet 500 mg PO BID 02/15/23 08/05/24 History levothyroxine 112 mcg tablet 137 mcg PO ACBR 02/15/23 08/05/24 History losartan 50 mg tablet 50 mg PO QDAY 02/15/23 08/05/24 History magnesium oxide 400 mg (241.3 mg 400 mg PO QDAY 02/15/23 08/05/24 History magnesium) tablet oxybutynin chloride 5 mg tablet 5 mg PO QDAY 02/15/23 08/05/24 History risperidone 0.5 mg tablet 0.5 mg PO BID 02/15/23 08/05/24 History simvastatin 40 mg tablet 40 mg PO HS 02/15/23 08/05/24 History zonisamide 100 mg capsule 200 mg PO BID 02/15/23 08/05/24 History cetirizine 10 mg tablet 10 mg PO QDAY 03/16/24 08/05/24 History ferrous sulfate 325 mg (65 mg 325 mg PO QDAY 03/16/24 08/05/24 History iron) tablet (FeroSul) fluticasone propionate 50 2 spray intranasal QDAY 03/16/24 08/05/24 History mcg/actuation nasal spray,suspension hydroxyzine HCl 25 mg tablet 25 mg PO HS 03/16/24 08/05/24 History olopatadine 0.1 % eye drops 1 drp ophthalmic (eye) BID 03/16/24 08/05/24 History calcitriol 0.25 mcg capsule 0.25 mcg PO QDAY 08/05/24 08/05/24 History Allergies Allergy/AdvReac Type Severity Reaction Status Date / Time No Known Allergies Allergy Verified 08/05/24 00:40 Exam Vital Signs Temp Pulse Resp BP Pulse Ox O2 Del Method O2 Flow Rate 36.6 C 87 16 137/80 H 95 Room Air 2 08/06/24 08:00 08/06/24 08:22 08/06/24 08:22 08/06/24 08:00 08/06/24 08:00 08/06/24 08:00 08/05/24 12:00 Narrative Exam General: Patient seems to be comfortable Head and neck: Hearing and vision normal Cardiovascular: Regular rate and rhythm, no murmurs. Respiratory: Clear to Auscultation bilaterally, no wheezing, no crackles. Abdomen: Soft, non-tender, no palpable masses or organomegdaly. Extremities: No edema, normal peripheral pulses. Genitourinary: no suprapubic tenderness, absent costovertebral tenderness. Neurology: Patient alert, awake and responding to questions. Some slurred speech noted-baseline. Has developmental delay. Results Labs 08/06/24 05:30 08/06/24 13:46 Labs: Short CBC 08/06/24 Range/Units 05:30 WBC 3.3 L (3.6-11.0) Thou/mm3 Hgb 9.7 L (12.0-16.0) g/dL Hct 29.2 L (36.0-46.0) % Plt Count 88 L (140-440) Thou/mm3 BMP 08/05/24 08/06/24 13:30 05:30 Sodium 139 137 Potassium 3.4 D 3.3 L Chloride 103 104 Carbon Dioxide 26.2 23.0 BUN 17 18 Creatinine 1.0 1.0 Glucose 109 H 97 Calcium 6.9 L 7.0 L Liver Function 08/05/24 08/06/24 Range/Units 13:30 05:30 Total Bilirubin 0.2 L (0.3-1.2) mg/dL AST 38 H (0-34) U/L ALT 35 (10-49) U/L Alkaline Phosphatase 100 (46-116) U/L Albumin 3.7 3.3 L (3.4-4.8) gm/dL Assessment & Plan Additional Assessment & Plan Additional Plan: # Symptomatic hypocalcemia Patient had episode of hypercalcemia needing admission in March 2024 and the doses of calcitriol, calcium and vitamin D were decreased. Since then she was seen in my clinic with a close monitoring of her electrolytes. Will increase the doses of calcitriol and calcium supplements. Patient presented with seizure episode. Goal will be calcium between 9 and 10. Patient has history of hypoparathyroidism for years and hypocalcemia needing supplements. #GABRIEL-improving with IV fluids. Most likely prerenal azotemia from decreased p.o. intake. Baseline creatinine 0.8-1.0 Current creatinine 1.2-- 1.0 Patient takes losartan at home we will hold at this time due to GABRIEL Continue IV fluids., Strict I&O's, renal ultrasound ordered. #Seizure disorder -presented with breakthrough seizures probably related to hypocalcemia. Currently on Keppra, carbamazepine, risperidone, zonisamide #Hx of Hypoparathyroidism PTH significantly suppressed. #Normocytic anemia, thrombocytopenia chronic hemoglobin 9.7 on ferrous sulfate #Hypertension Blood pressure acceptable. Losartan held #hyperlipidemia on atorvastatin 40mg HS #Hypothyroidism on levothyroxine Thank you Dr. Isaac for allowing me to participate in the care of Ms. Ac
[2024-08-06] MEDS: Magnesium Sulfate 2 GM Ivpb 2 GM/50 ML BAG IV (12:52)
--- NOTE | 2024-08-06 12:58 | PC.PT ---
Patient refused to participate with PT inspite of education of the benefits of PT. made aware. Will try again tomorrow.
--- NOTE | 2024-08-06 13:35 | PD.RESPRO ---
Documentation for date of: 08/06/24 Subjective Subjective Interval history: Patient was seen and examined at bedside this AM. No acute events overnight. Patient tolerating diet, adequate urine output and mentation is at baseline. She is now at baseline. Nephrology consulted for further recommendations, appreciate input. Will start calcitriol in addition to IV calcium gluc for supplementation. Exam Vital Signs Temp Pulse Resp BP Pulse Ox O2 Del Method O2 Flow Rate 97.9 F 79 16 123/78 94 L Room Air 2 08/06/24 12:00 08/06/24 12:00 08/06/24 12:00 08/06/24 12:00 08/06/24 12:00 08/06/24 12:00 08/05/24 12:00 Narrative Exam Constitutional Alert, oriented x2(baseline) , comfortable HEENT Vision grossly intact. Patent nares. Trachea midline. Slowed speech (baseline) Respiratory Chest normal on inspection and clear to auscultation bilaterally. Cardiovascular S1 and S2 audible, RRR. No murmurs or carotid bruit. No gross JVD. Abdominal Soft and BS + ; non tender to palpation in all quadrants. Genitourinary No bladder tenderness, no flank pain. Normal to palpation. Musculoskeletal Extremities tone within normal limits. No LE edema. Neurological CN II - XII grossly intact. Extremity motor and sensation grossly intact. Skin Warm, dry and intact. No apparent lesions. Psychiatric Patient has a good affect, is cooperative. Mild develop delay Objective Labs 08/07/24 04:56 08/07/24 04:56 Labs: Laboratory Results - last 24 hr 08/05/24 08/06/24 13:30 05:30 WBC 3.3 L RBC 3.57 L Hgb 9.7 L Hct 29.2 L MCV 82 MCH 27.2 MCHC 33.2 RDW Std Deviation 42.5 Plt Count 88 L Neut % (Auto) 59 Lymph % (Auto) 33 [place] % (Auto) 7 Eos % (Auto) 0 Baso % (Auto) 0 Neut # (Auto) 2.0 Lymph # (Auto) 1.1 [place] # (Auto) 0.2 Eos # (Auto) 0.0 Baso # (Auto) 0.0 Immature Gran # (Auto) 0.01 H Absolute Nucleated RBC 0.00 Immature Gran % 0 Nucleated RBC % 0 Sodium 139 137 Potassium 3.4 D 3.3 L Chloride 103 104 Carbon Dioxide 26.2 23.0 Anion Gap 10 10 BUN 17 18 Creatinine 1.0 1.0 Estim Creat Clear Calc 66.2 64.5 eGFR > 60 > 60 BUN/Creatinine Ratio 17 18 Glucose 109 H 97 Calculated Osmolality 280 275 Calcium 6.9 L 7.0 L Corrected Calcium 7.1 L 7.6 L Phosphorus 3.1 4.1 Magnesium 2.1 1.7 Total Bilirubin 0.2 L AST 38 H ALT 35 Alkaline Phosphatase 100 Total Protein 5.6 L Albumin 3.7 3.3 L Globulin 2.3 Albumin/Globulin Ratio 1.4 TSH 4.01 Quality Measures Quality Measures none Assessment & Plan Assessment Current Active Medications: Generic Name Dose Route Start Last Admin Trade Name Freq PRN Reason Stop Dose Admin Acetaminophen 650 mg 08/05/24 06:05 Acetaminophen 325 Mg Tablet PO 09/04/24 06:04 Q6H PRN Fever >100.3 or pain 1-10 Benzonatate 100 mg 08/06/24 09:45 08/06/24 10:36 Benzonatate 100 Mg Capsule PO 09/05/24 09:44 100 mg Q8HR PRN Administration COUGH Protocol Carbamazepine 200 mg 08/05/24 09:00 08/06/24 10:37 Carbamazepine 200 Mg Tablet PO 09/04/24 08:59 200 mg BID MARKEL Administration Heparin Sodium (Porcine) 5,000 unit 08/05/24 09:00 08/06/24 09:49 Heparin Sod Inj 5000 Unit/Ml Vial SC 08/19/24 08:59 5,000 unit Q12HR MARKEL Administration Ceftriaxone Sodium/Dextrose 1 gm in 50 mls @ 100 mls/hr 08/06/24 09:00 08/06/24 09:37 Rocephin/D5w 1gm Iv Premix IV 08/13/24 08:59 100 mls/hr QDAY MARKEL Administration Levetiracetam 500 mg 08/05/24 09:00 08/06/24 09:37 Levetiracetam 250 Mg Tablet PO 09/04/24 08:59 500 mg BID MARKEL Administration Ondansetron HCl 4 mg 08/05/24 06:05 Ondansetron Inj 2 Mg/Ml Inj 2 Ml IVP 09/04/24 06:04 Q6H PRN NAUSEA OR VOMITING Protocol Zonisamide 200 mg 08/05/24 09:00 08/06/24 10:37 Zonisamide 100 Mg Capsule PO 09/04/24 08:59 200 mg BID MARKEL Administration Plan Ms Ac is a 64-year-old female with past medical history of developmental delay, seizure disorder, hypertension, hyperlipidemia, hypoparathyroidism, hypothyroidism, and hypocalcemia who presented to the ED from [facility] on 08/05/2024 due to episode of altered mental status. She was subsequently found to have UTI and admitted for further management. Acute UTI Patient came with AMS, however now at baseline mentation, etiology can include breakthrough seizure, however no seizure activity was witnessed vs UTI UA showed positive leukocyte esterase, 31 RBCs and 488 WBCs with rare bacteria. Currently patient is not endorsing any pain or urinary symptoms but caregivers described that patient had been feeling ill earlier with diarrhea, fever, and vomiting. - Previous cultures showed pansensitive E. coli therefore started on ceftriaxone. Underlying infection may have triggered breakthrough seizure. - Urine cultures: Pending - Blood cultures: GPC positive (prelim) Plan: - Started PO Doxycycline 100mg BID (08/06 - ) for gram positive bacteria on prelim blood culture, likely contaminant. - Continue IV ceftriaxone 1 g qday (08/05- ). If E.coli, can keep on Doxycycline only. - Acetaminophen as needed for fever or pain - Zofran as needed for nausea Moderate Hypocalcemia, Symptomatic On admission potassium was 2.8, calcium was 7.5, patient known to have low levels and is on supplements. 08/06 : Ca : 7.1 -> 7.6 -> 7 Plan: - Repeleted with Ca Gluc 2g x1 in the am - Repeat renal panel showed ca 7.6 -> 7, will give additional Ca Gluc 2g x1 again - Nephrology consulted, pending Dr Francis's recommendations re: management on hypocalcemia. - Started Calcitriol 0.25mcg daily until further Nephro input Breakthrough seizure History of seizure disorder Patient had episode of altered mental status followed by what appeared to be a post-ictal event. On examination patient also has evidence of tongue biting. Patient is at baseline mental status at this time Plan: - Continue home levetiracetam 500 mg BID - Continue home carbamazepine 200 mg BID - Continue home zonisamide 200 mg BID Primary hypertension Hyperlipidemia Hypothyroidism - Continue home medications with med rec Health maintenance: Dispo: Med Surg. Pending Nephro recommendations re: hypocalcemia. DVT prophylaxis: Heparin GI prophylaxis: Not indicated Diet: Cardiac Garcia: None Lines: Peripheral IV Code status: FULL CODE Plan of care discussed with attending Anne Alvarado M.D. PGY2 Disclaimer: Minor errors in cider maker may be present as this note was dictated using voice recognition software. Attending Provider Attestation/Addendum Meeta Weir, , attest that I was physically present for the johnson portions of the service and evaluated the patient with the resident and I reviewed and discussed the case with the resident and agree with the resident's findings and plans of care as documented above Patient seen and evaluated this AM. She states that she is feeling well. Calcium remains low despite receiving calcium gluconate. Case was discussed with nephrology. Will start on calcitriol. Patient has been seizure free. PT was ordered. However, patient refused to walk with PT as she states she is weak. Will continue with current management and f/u with nephrology recommendations. Will continue to monitor electrolytes closely. Patient has no active complaints. She denies any numbness, tingling in extremities, chest pain or shorness of breath.
--- NOTE | 2024-08-06 13:54 | PC.SS ---
Joelle Ac is a 64 year old female admitted to the [facility] for UTI. SW made contact with Crissy Edson, guardian from [facility] [phone] . Role and reason for the contact was explained to Crissy. Pt is resident of ?at [facility] and plans to return. SS confirmed information on facesheet was accurate including pt next of Kin. Transportation discussed and facility will be able to transport pt back to facility. Pt sees Dr. Sirena Sandhu, date of last visit was about a month. disability services coordinator will remain available for any additional needs.? PCP: Dr. Sirena Sandhu Emergency Contact: Crissy Edson, . Address: Correct on FaceSheet Discharge Destination: [facility]
[2024-08-06 14:23] LABS: Albumin, Serum 3.5 gm/dL (3.4-4.8); Anion Gap 9 (7-16); BUN/Creatinine Ratio 14 Ratio (12-20); Blood Urea Nitrogen 14 mg/dL (9-23); Carbon Dioxide 25.7 mMol/L (20.0-31.0); Chloride 106 mMol/L (98-107); Estimated Creatinine Clearance 64.5 mL/min (>60); Glucose 85 mg/dL (74-106); Osmolality,Calculated 280 (275-295); Phosphorous 3.4 mg/dL (2.4-5.1); Potassium 3.3 mMol/L (3.4-5.1); Sodium 141 mMol/L (136-145); eGFR > 60 See Note
[2024-08-06 14:29] LABS: Calcium 6.6 mg/dL (8.3-10.6)
--- NOTE | 2024-08-06 14:55 | PC.SS ---
rounding note: consult with Penny; pt to return to care facility
[2024-08-06] MEDS: CALCITRIOL 0.25 mCg CAPSULE PO (15:04)
[2024-08-06] MEDS: CALCIUM GLUC/NS 1000MG IVPB 1,000 MG/50 ML BAG 50 MG IV ×2 (15:04→16:11)
[2024-08-06] MEDS: CALCIUM CARBONATE 600 MG TABLET PO ×2 (15:04→20:57)
[2024-08-06] MEDS: DOXYCYCLINE 100 MG TABLET PO (20:57)
[2024-08-07] VITALS (9 sets, daily range): BP systolic 98–140; BP diastolic 66–94; PULSE 81–107; RESP 14–94; TEMP 36.2–37.3; O2SAT 91–93; BMI 27.0
[2024-08-07 05:54] LABS: Basophils % (Auto) 0 % (0-2.5); Eosinophils % (Auto) 0 % (0-10); Hemoglobin 10.4 g/dL (12.0-16.0); Immature Granulocytes % (Auto) 0 % (0-0); Lymphocytes # (Auto) 0.7 Thou/mm3 (1.0-4.8); Lymphocytes % (Auto) 19 % (10-50); Mean Corpuscular HGB Conc 33.5 g/dl (31.0-37.0); Mean Corpuscular Hemoglobin 26.8 pg (25.0-35.0); Mean Corpuscular Volume 80 fL (80-100); Monocytes # (Auto) 0.2 Thou/mm3 (0.0-0.8); Monocytes % (Auto) 6 % (0-12); Neutrophils # (Auto) 2.8 Thou/mm3 (1.8-7.7); Neutrophils % (Auto) 75 % (37-80); Nucleated Red Blood Cell % 0 /100 WBC (0); Platelet Count 89 Thou/mm3 (140-440); RDW Standard Deviation 41.9 fL (36.4-46.3); Red Blood Count 3.88 Miln/mm3 (4.00-5.20); White Blood Count 3.7 Thou/mm3 (3.6-11.0)
[2024-08-07 06:15] LABS: Alanine Aminotransferase 31 U/L (10-49); Albumin, Serum 3.4 gm/dL (3.4-4.8); Albumin/Globulin Ratio 1.4 (1.2-2.2); Alkaline Phosphatase 105 U/L (46-116); Anion Gap 11 (7-16); Aspartate Amino Transferase 33 U/L (0-34); BUN/Creatinine Ratio 10 Ratio (12-20); Bilirubin,Total 0.2 mg/dL (0.3-1.2); Blood Urea Nitrogen 10 mg/dL (9-23); Calcium 7.7 mg/dL (8.3-10.6); Calcium (Corrected) 8.2 mg/dL (8.5-10.1); Carbon Dioxide 23.4 mMol/L (20.0-31.0); Chloride 101 mMol/L (98-107); Estimated Creatinine Clearance 64.5 mL/min (>60); Globulin 2.5 gm/dL (2.3-3.5); Glucose 90 mg/dL (74-106); Osmolality,Calculated 269 (275-295); Potassium 3.6 mMol/L (3.4-5.1); Sodium 135 mMol/L (136-145); Total Protein 5.9 gm/dL (5.7-8.2); eGFR > 60 See Note
--- NOTE | 2024-08-07 08:27 | XR_ITS ---
Examination: Retroperitoneal ultrasound, complete Technique: Multiple high resolution grayscale images of the retroperitoneum obtained, including kidneys and bladder. Exam date and time:August 07, 2024 1107 hours INDICATIONS: Severe hypocalcemia FINDINGS: Right kidney 9.4 cm cortex 1.3 cm Left kidney 9.9 cm cortex 1.6 cm Multiple left renal calculi, the largest lower pole 9 mm Mild bilateral renal parenchyma scar formation Intact urinary bladder Bladder prevoid volume 59 cc IMPRESSION: Bilateral renal cortical thinning Small left renal calculi, the largest 9 mm
[2024-08-07] MEDS: ZONISAMIDE 100 MG CAPSULE 200 MG PO ×2 (08:37→19:59)
[2024-08-07] MEDS: cefTRIAXone/D5w 1gm IV premix 1 GM/50 ML BAG IV (08:37)
[2024-08-07] MEDS: levETIRAcetam 250 MG TABLET 500 MG PO ×2 (08:38→19:59)
[2024-08-07] MEDS: HEPARIN SOD INJ 5000 UNIT/ML VIAL SC ×2 (08:38→19:59)
[2024-08-07] MEDS: CALCITRIOL 0.25 mCg CAPSULE 0.5 MCG PO (08:38)
[2024-08-07] MEDS: DOXYCYCLINE 100 MG TABLET PO ×2 (08:38→19:59)
[2024-08-07] MEDS: carBAMazepine 200 MG TABLET PO ×2 (08:38→20:01)
[2024-08-07] MEDS: CALCIUM CARBONATE 600 MG TABLET PO ×2 (08:38→19:59)
--- NOTE | 2024-08-07 09:28 | ESPR_ITS ---
Documentation for date of: 08/07/24 Subjective Subjective Interval history: 08/07/2024: No acute overnight events to report. Patient seen and examined hospital bed answers some questions at a very slow rate but is awake and denies having any concerning symptoms at this time. Nephrology consulted for the patient's hypoparathyroidism causing hypocalcemia and likely precipitant for the seizures. Repleting patient's calcium stores at this time; goal will be corrected calcium of 8.5. Physical therapy to continue working with the patient; expect discharge within the next 24 to 48 hours. Exam Vital Signs Temp Pulse Resp BP Pulse Ox O2 Del Method O2 Flow Rate 99.0 F 91 18 126/77 91 L Room Air 2 08/07/24 08:00 08/07/24 08:00 08/07/24 08:00 08/07/24 08:00 08/07/24 08:00 08/07/24 08:00 08/05/24 12:00 Narrative Exam Constitutional Alert, oriented x2(baseline) , comfortable HEENT Vision grossly intact. Patent nares. Trachea midline. Slowed speech (baseline) Respiratory Chest normal on inspection and clear to auscultation bilaterally. Cardiovascular S1 and S2 audible, RRR. No murmurs or carotid bruit. No gross JVD. Abdominal Soft and BS + ; non tender to palpation in all quadrants. Genitourinary No bladder tenderness, no flank pain. Normal to palpation. Musculoskeletal Extremities tone within normal limits. No LE edema. Neurological CN II - XII grossly intact. Extremity motor and sensation grossly intact. Skin Warm, dry and intact. No apparent lesions. Psychiatric Patient has a good affect, is cooperative. Mild develop delay Objective Labs 08/08/24 05:19 08/08/24 05:19 Labs: Laboratory Results - last 24 hr 08/06/24 08/07/24 13:46 04:56 WBC 3.7 RBC 3.88 L Hgb 10.4 L Hct 31.0 L MCV 80 MCH 26.8 MCHC 33.5 RDW Std Deviation 41.9 Plt Count 89 L Neut % (Auto) 75 Lymph % (Auto) 19 [place] % (Auto) 6 Eos % (Auto) 0 Baso % (Auto) 0 Neut # (Auto) 2.8 Lymph # (Auto) 0.7 L [place] # (Auto) 0.2 Eos # (Auto) 0.0 Baso # (Auto) 0.0 Immature Gran # (Auto) 0.00 Absolute Nucleated RBC 0.00 Immature Gran % 0 Nucleated RBC % 0 Sodium 141 135 L Potassium 3.3 L 3.6 Chloride 106 101 Carbon Dioxide 25.7 23.4 Anion Gap 9 11 BUN 14 10 Creatinine 1.0 1.0 Estim Creat Clear Calc 64.5 64.5 eGFR > 60 > 60 BUN/Creatinine Ratio 14 10 L Glucose 85 90 Calculated Osmolality 280 269 L Calcium 6.6 L* 7.7 L Corrected Calcium 7.0 L 8.2 L Phosphorus 3.4 Total Bilirubin 0.2 L AST 33 ALT 31 Alkaline Phosphatase 105 Total Protein 5.9 Albumin 3.5 3.4 Globulin 2.5 Albumin/Globulin Ratio 1.4 Quality Measures Quality Measures none Assessment & Plan Assessment Current Active Medications: Generic Name Dose Route Start Last Admin Trade Name Freq PRN Reason Stop Dose Admin Acetaminophen 650 mg 08/05/24 06:05 Acetaminophen 325 Mg Tablet PO 09/04/24 06:04 Q6H PRN Fever >100.3 or pain 1-10 Benzonatate 100 mg 08/06/24 09:45 08/06/24 21:00 Benzonatate 100 Mg Capsule PO 09/05/24 09:44 100 mg Q8HR PRN Administration COUGH Protocol Calcitriol 0.5 mcg 08/07/24 09:00 08/07/24 08:38 Calcitriol 0.25 Mcg Capsule PO 09/06/24 08:59 0.5 mcg QDAY MARKEL Administration Calcium Carbonate 600 mg 08/06/24 21:00 08/07/24 08:38 Calcium Carbonate 600 Mg Tablet PO 09/05/24 20:59 600 mg BID MARKEL Administration Carbamazepine 200 mg 08/05/24 09:00 08/07/24 08:38 Carbamazepine 200 Mg Tablet PO 09/04/24 08:59 200 mg BID MARKEL Administration Doxycycline Hyclate 100 mg 08/06/24 21:00 08/07/24 08:38 Doxycycline 100 Mg Tablet PO 08/13/24 20:59 100 mg BID MARKEL Administration Heparin Sodium (Porcine) 5,000 unit 08/05/24 09:00 08/07/24 08:38 Heparin Sod Inj 5000 Unit/Ml Vial SC 08/19/24 08:59 5,000 unit Q12HR MARKEL Administration Ceftriaxone Sodium/Dextrose 1 gm in 50 mls @ 100 mls/hr 05/27/25 09:00 08/07/24 08:37 Rocephin/D5w 1gm Iv Premix IV 08/14/24 08:59 100 mls/hr QDAY MARKEL Administration Levetiracetam 500 mg 08/05/24 09:00 08/07/24 08:38 Levetiracetam 250 Mg Tablet PO 09/04/24 08:59 500 mg BID MARKEL Administration Ondansetron HCl 4 mg 08/05/24 06:05 Ondansetron Inj 2 Mg/Ml Inj 2 Ml IVP 09/04/24 06:04 Q6H PRN NAUSEA OR VOMITING Protocol Zonisamide 200 mg 08/05/24 09:00 08/07/24 08:37 Zonisamide 100 Mg Capsule PO 09/04/24 08:59 200 mg BID MARKEL Administration Plan 64-year-old female with past medical history of developmental delay, seizure disorder, hypertension, hyperlipidemia, hypoparathyroidism, hypothyroidism, and hypocalcemia who presented to the ED from [facility] on 08/05/2024 due to episode of altered mental status. She was subsequently found to have UTI and admitted for further management. #Acute Encephalopathy #UTI Patient came with AMS etiology can include breakthrough seizure, however no seizure activity was witnessed vs UTI UA showed positive leukocyte esterase, 31 RBCs and 488 WBCs with rare bacteria. Patient denies any urinary symptoms, fever and vomiting. Previous cultures showed pansensitive E. coli therefore started on ceftriaxone. Underlying infection may have triggered breakthrough seizure. Urine cultures pending Blood cultures GPC positive (prelim) Plan: Continue PO Doxycycline 100mg BID Continue IV ceftriaxone 1 g qday Follow-up on repeat blood cultures Acetaminophen as needed for fever or pain Zofran as needed for nausea #Moderate Hypocalcemia, Symptomatic On admission potassium was 2.8, calcium was 7.5, patient known to have low levels and is on supplements. 08/07 : Ca : 7.1 -> 7.6 -> 7 -> 7.7 Goal calcium between 9?10 per nephrology Plan: Continue calcitriol and calcium carbonate supplementation Nephrology consulted, appreciate recommendations #Breakthrough seizure #History of seizure disorder Patient had episode of altered mental status followed by what appeared to be a post-ictal event. On examination patient also has evidence of tongue biting. Patient is at baseline mental status at this time Plan: Continue home levetiracetam 500 mg BID Continue home carbamazepine 200 mg BID Continue home zonisamide 200 mg BID #Primary hypertension #Hyperlipidemia #Hypothyroidism Chronic medical conditions Plan: Continue home medications with med rec Health Maintenance: Dispo: Improving calcium levels, urine cultures pending on IV antibiotics DVT prophylaxis: Heparin GI prophylaxis: Not indicated Diet: Cardiac Garcia: None Lines: PIV Code: Full Patient seen and assessed with attending Dr. Poncho Meade, PGY-1 Attending Provider Attestation/Addendum Meeta Weir, , attest that I was physically present for the johnson portions of the service and evaluated the patient with the resident and I reviewed and discussed the case with the resident and agree with the resident's findings and plans of care as documented above Patient seen and evaluated this AM. Patient has no active complaints. Calcium today is 8.2 and improved. Will continue with calcium supplements and electrolyte replacement. Goal calcium of 8.5 or greater. Will continue to follow-up with nephro recommendations. Patient refusing to work with physical therapy at this time.
--- NOTE | 2024-08-07 12:16 | PC.PT ---
Attempt to initiate PT evaluation again at 1000. Patient refused to participate with PT. This PT encouraged the patient to participate even with just sitting on the EOB or standing, Patient adamantly refused and told this PT multiple times Pls do not force me. Informed RN and Dr. Meade. Patient lives in the skilled nursing and will have 04/10 care. Will cancel PT evaluation due to multiple refusals.
--- NOTE | 2024-08-07 14:09 | PD.RESPRO ---
Documentation for date of: 08/07/24 Subjective Subjective Interval history: Chart review done as patient has developmental delay and could not give much information. No family or care provider at bedside. Ms. Ac is a 64-year-old female with past medical history of developmental delay, seizure disorder, hypertension, hyperlipidemia, hypoparathyroidism(idiopathic), hypothyroidism, recurrent episodes of hypocalcemia(currently followed up by me at CKD clinic), presented to the ED due to seizure-like activity, altered mental status. Patient has history of seizure disorder is seen by neurologist Dr. Elizondo. In the emergency department labs showed WBC 3.3, hemoglobin 9.7, platelets 88. Coags normal. Sodium 135, potassium 2.8, BUN 17, creatinine 1.2, GFR 51, calcium 7.5, AST 66, ALT 48, alk phos 113, albumin 3.6, (patient had similar episode in March and that time her PTH was 9.6, vitamin D and 125 vitamin D were normal, TSH normal) urinalysis showed pyuria. Urine tox screen negative head CT negative chest x-ray showed questionable left base pneumonia. Home medications include calcitriol 0.25 mcg p.o. daily, calcium carbonate, Tegretol, iron, Keppra, levothyroxine, losartan, magnesium, oxybutynin, risperidone, simvastatin, zonisamide Normal saline fluid boluses, IV calcium gluconate were given for hypocalcemia and renal consultation was requested. 08/06/2024 patient currently seen in medical floor. Seizure precautions noted. Is developmentally delayed. Calcium 7.0, phosphorus 3.4, magnesium 1.7. 08/07/24: Patient seen and examined at bedside, resting comfortably. Patient Poorly responsive, followed some simple commands, mostly gave nonsensical answers. WBC 3.7, Hg 105, Na 135, K 3.6, bicarb 23.4, BUN 10, creatinine 1.0, eGFR >60 Calcium increased to 7.7. KADI showed b/l cortical thinning with renal parenchymal scar formation, L renal calculi the largest of which is 9 mm. Exam Vital Signs Temp Pulse Resp BP Pulse Ox O2 Del Method O2 Flow Rate 97.2 F 90 14 123/80 93 L Room Air 2 08/07/24 12:00 08/07/24 12:00 08/07/24 12:08/07/24 12:00 08/07/24 12:00 08/07/24 12:00 08/05/24 12:00 Narrative Exam General: Patient seems to be comfortable Head and neck: Hearing and vision normal Cardiovascular: Regular rate and rhythm, no murmurs. Respiratory: Clear to Auscultation bilaterally, no wheezing, no crackles. Abdomen: Soft, non-tender, no palpable masses or organomegdaly. Extremities: No edema, normal peripheral pulses. Genitourinary: no suprapubic tenderness, absent costovertebral tenderness. Neurology: Patient alert, awake and responding to questions, mostly nonsensical. Some slurred speech noted-baseline. Has developmental delay. Objective Labs 08/08/24 05:19 08/07/24 04:56 Labs: Laboratory Results - last 24 hr 08/06/24 08/07/24 13:46 04:56 WBC 3.7 RBC 3.88 L Hgb 10.4 L Hct 31.0 L MCV 80 MCH 26.8 MCHC 33.5 RDW Std Deviation 41.9 Plt Count 89 L Neut % (Auto) 75 Lymph % (Auto) 19 [place] % (Auto) 6 Eos % (Auto) 0 Baso % (Auto) 0 Neut # (Auto) 2.8 Lymph # (Auto) 0.7 L [place] # (Auto) 0.2 Eos # (Auto) 0.0 Baso # (Auto) 0.0 Immature Gran # (Auto) 0.00 Absolute Nucleated RBC 0.00 Immature Gran % 0 Nucleated RBC % 0 Sodium 141 135 L Potassium 3.3 L 3.6 Chloride 106 101 Carbon Dioxide 25.7 23.4 Anion Gap 9 11 BUN 14 10 Creatinine 1.0 1.0 Estim Creat Clear Calc 64.5 64.5 eGFR > 60 > 60 BUN/Creatinine Ratio 14 10 L Glucose 85 90 Calculated Osmolality 280 269 L Calcium 6.6 L* 7.7 L Corrected Calcium 7.0 L 8.2 L Phosphorus 3.4 Total Bilirubin 0.2 L AST 33 ALT 31 Alkaline Phosphatase 105 Total Protein 5.9 Albumin 3.5 3.4 Globulin 2.5 Albumin/Globulin Ratio 1.4 Quality Measures Quality Measures VTE prophylaxis Assessment & Plan Assessment Current Active Medications: Generic Name Dose Route Start Last Admin Trade Name Freq PRN Reason Stop Dose Admin Acetaminophen 650 mg 08/05/24 06:05 Acetaminophen 325 Mg Tablet PO 09/04/24 06:04 Q6H PRN Fever >100.3 or pain 1-10 Benzonatate 100 mg 08/06/24 09:45 08/06/24 21:00 Benzonatate 100 Mg Capsule PO 09/05/24 09:44 100 mg Q8HR PRN Administration COUGH Protocol Calcitriol 0.5 mcg 08/07/24 09:00 08/07/24 08:38 Calcitriol 0.25 Mcg Capsule PO 09/06/24 08:59 0.5 mcg QDAY MARKEL Administration Calcium Carbonate 600 mg 08/06/24 21:00 08/07/24 08:38 Calcium Carbonate 600 Mg Tablet PO 09/05/24 20:59 600 mg BID MARKEL Administration Carbamazepine 200 mg 08/05/24 09:00 08/07/24 08:38 Carbamazepine 200 Mg Tablet PO 09/04/24 08:59 200 mg BID MARKEL Administration Doxycycline Hyclate 100 mg 08/06/24 21:00 08/07/24 08:38 Doxycycline 100 Mg Tablet PO 08/13/24 20:59 100 mg BID MARKEL Administration Heparin Sodium (Porcine) 5,000 unit 08/05/24 09:00 08/07/24 08:38 Heparin Sod Inj 5000 Unit/Ml Vial SC 08/19/24 08:59 5,000 unit Q12HR MARKEL Administration Ceftriaxone Sodium/Dextrose 1 gm in 50 mls @ 100 mls/hr 08/07/24 09:00 08/07/24 08:37 Rocephin/D5w 1gm Iv Premix IV 08/14/24 08:59 100 mls/hr QDAY MARKEL Administration Levetiracetam 500 mg 08/05/24 09:00 08/07/24 08:38 Levetiracetam 250 Mg Tablet PO 09/04/24 08:59 500 mg BID MARKEL Administration Ondansetron HCl 4 mg 08/05/24 06:05 Ondansetron Inj 2 Mg/Ml Inj 2 Ml IVP 09/04/24 06:04 Q6H PRN NAUSEA OR VOMITING Protocol Zonisamide 200 mg 08/05/24 09:00 08/07/24 08:37 Zonisamide 100 Mg Capsule PO 09/04/24 08:59 200 mg BID MARKEL Administration Plan Ms. Ac is a 64-year-old female with past medical history of developmental delay, seizure disorder, hypertension, hyperlipidemia, hypoparathyroidism(idiopathic), hypothyroidism, recurrent episodes of hypocalcemia(currently followed up by me at CKD clinic), presented to the ED due to seizure-like activity, altered mental status. Nephrology consulted for symptomatic hypocalcemia #Symptomatic hypocalcemia Patient had episode of hypercalcemia needing admission in March 2024 and the doses of calcitriol, calcium and vitamin D were decreased. Since then she was seen in my clinic with a close monitoring of her electrolytes. Will increase the doses of calcitriol and calcium supplements. Patient presented with seizure episode. Goal will be calcium between 9 and 10. Patient has history of hypoparathyroidism for years and hypocalcemia needing supplements. Received calcium gluconate for rapid correction. - Rocaltrol 0.5 mcg PO daily - Calcium carbonate 600 mg PO twice daily - Monitor daily calcium levels #GABRIEL-improving with IV fluids. Most likely prerenal azotemia from decreased p.o. intake. Baseline creatinine 0.8-1.0, Current creatinine 1.2-- 1.0. Patient takes losartan at home we will hold at this time due to GABRIEL KADI showed b/l cortical thinning with renal parenchymal scar formation, L renal calculi the largest of which is 9 mm. - Strict I's & O's - Monitor renal function - Encourage oral hydration - Hold losartan #Seizure disorder -presented with breakthrough seizures probably related to hypocalcemia. Currently on Keppra, carbamazepine, risperidone, zonisamide - Resume home meds #Hx of Hypoparathyroidism #Normocytic anemia, thrombocytopenia chronic #Hypertension #hyperlipidemia #Hypothyroidism Management as per primary team. Thank you for allowing us to participate in the care of this patient. Plan of care discussed with attending Dr. Francis. Rodolfo Gay MD PGY-1 Attending Provider Attestation/Addendum Patient seen and examined with resident physician Dr. Toth. Note reviewed, agree with findings and recommendations. Today patient resting comfortably. Calcium slightly better. Increase the dose of calcitriol, calcium. If calcium levels about 8.5 she can be discharged tomorrow. Spoke to primary team. Patient with severe hypoparathyroidism. Had extensive workup done in March 2024
--- NOTE | 2024-08-07 14:43 | PC.SS ---
Follow up note: SS contacted [facility] to notify that patient may be discharged home tomorrow. SS spoke to Crissy, [facility] child psychologist who states that patient's cousin, Asha, makes all healthcare decisions. She resides out of state. Patient is connected to [facility] but they do not make the decisions. Crissy, states since they are patient's home and careproviders, they would like a phone call for any updates or transportation. [facility]
[2024-08-07] MEDS: BENZONATATE 100 MG CAPSULE PO (19:59)
[2024-08-08] VITALS (8 sets, daily range): BP systolic 104–162; BP diastolic 66–88; PULSE 75–93; RESP 16–92; TEMP 36.2–36.7; O2SAT 90–98; BMI 27.1
[2024-08-08 06:06] LABS: Basophils % (Auto) 0 % (0-2.5); Eosinophils % (Auto) 0 % (0-10); Hematocrit 29.9 % (36.0-46.0); Hemoglobin 10.1 g/dL (12.0-16.0); Immature Granulocytes % (Auto) 0 % (0-0); Immature Granulocytes Auto 0.01 Thou/mm3 (0.00-0.00); Lymphocytes # (Auto) 0.8 Thou/mm3 (1.0-4.8); Lymphocytes % (Auto) 29 % (10-50); Mean Corpuscular HGB Conc 33.8 g/dl (31.0-37.0); Mean Corpuscular Hemoglobin 26.9 pg (25.0-35.0); Mean Corpuscular Volume 80 fL (80-100); Monocytes # (Auto) 0.2 Thou/mm3 (0.0-0.8); Monocytes % (Auto) 8 % (0-12); Neutrophils # (Auto) 1.7 Thou/mm3 (1.8-7.7); Neutrophils % (Auto) 62 % (37-80); Nucleated Red Blood Cell % 0 /100 WBC (0); RDW Standard Deviation 41.1 fL (36.4-46.3); Red Blood Count 3.75 Miln/mm3 (4.00-5.20)
[2024-08-08 06:14] LABS: Platelet Count 74 Thou/mm3 (140-440); White Blood Count 2.7 Thou/mm3 (3.6-11.0)
[2024-08-08 06:24] LABS: Alanine Aminotransferase 33 U/L (10-49); Albumin, Serum 3.5 gm/dL (3.4-4.8); Albumin/Globulin Ratio 1.5 (1.2-2.2); Alkaline Phosphatase 108 U/L (46-116); Anion Gap 11 (7-16); Aspartate Amino Transferase 38 U/L (0-34); BUN/Creatinine Ratio 10 Ratio (12-20); Bilirubin,Total 0.2 mg/dL (0.3-1.2); Blood Urea Nitrogen 10 mg/dL (9-23); Calcium 7.5 mg/dL (8.3-10.6); Calcium (Corrected) 7.9 mg/dL (8.5-10.1); Carbon Dioxide 23.4 mMol/L (20.0-31.0); Chloride 101 mMol/L (98-107); Estimated Creatinine Clearance 65.4 mL/min (>60); Globulin 2.4 gm/dL (2.3-3.5); Glucose 91 mg/dL (74-106); Osmolality,Calculated 269 (275-295); Potassium 3.3 mMol/L (3.4-5.1); Sodium 135 mMol/L (136-145); Total Protein 5.9 gm/dL (5.7-8.2); eGFR > 60 See Note
[2024-08-08 08:46] LABS: Magnesium 1.4 mg/dL (1.6-2.6)
--- NOTE | 2024-08-08 09:10 | ESPR_ITS ---
Documentation for date of: 08/08/24 Subjective Subjective Interval history: Chart review done as patient has developmental delay and could not give much information. No family or care provider at bedside. Ms. Ac is a 64-year-old female with past medical history of developmental delay, seizure disorder, hypertension, hyperlipidemia, hypoparathyroidism(idiopathic), hypothyroidism, recurrent episodes of hypocalcemia(currently followed up by me at CKD clinic), presented to the ED due to seizure-like activity, altered mental status. Patient has history of seizure disorder is seen by neurologist Dr. Elizondo. In the emergency department labs showed WBC 3.3, hemoglobin 9.7, platelets 88. Coags normal. Sodium 135, potassium 2.8, BUN 17, creatinine 1.2, GFR 51, calcium 7.5, AST 66, ALT 48, alk phos 113, albumin 3.6, (patient had similar episode in March and that time her PTH was 9.6, vitamin D and 125 vitamin D were normal, TSH normal) urinalysis showed pyuria. Urine tox screen negative head CT negative chest x-ray showed questionable left base pneumonia. Home medications include calcitriol 0.25 mcg p.o. daily, calcium carbonate, Tegretol, iron, Keppra, levothyroxine, losartan, magnesium, oxybutynin, risperidone, simvastatin, zonisamide Normal saline fluid boluses, IV calcium gluconate were given for hypocalcemia and renal consultation was requested. 08/06/2024 patient currently seen in medical floor. Seizure precautions noted. Is developmentally delayed. Calcium 7.0, phosphorus 3.4, magnesium 1.7. 08/07/24: Patient seen and examined at bedside, resting comfortably. Patient Poorly responsive, followed some simple commands, mostly gave nonsensical answers. WBC 3.7, Hg 105, Na 135, K 3.6, bicarb 23.4, BUN 10, creatinine 1.0, eGFR >60 Calcium increased to 7.7. KADI showed b/l cortical thinning with renal parenchymal scar formation, L renal calculi the largest of which is 9 mm. 08/08/2024: Patient seen and examined at bedside, resting comfortably. Patient seen more alert today. Calcium decreased to 7.5, will increase calcium and calcitriol. Order for calcium to give him at least 2 hours separate from meals. WBC 2.7, hemoglobin 10.1, sodium 135, potassium 3.3, bicarb 23.4, BUN 10, creatinine 1.0, EGFR greater than 60. Magnesium is 1.4, repleted. Exam Vital Signs Temp Pulse Resp BP Pulse Ox O2 Del Method O2 Flow Rate 98.0 F 85 16 127/78 92 L Room Air 2 08/08/24 08:00 08/08/24 08:00 08/08/24 08:00 08/08/24 08:00 08/08/24 08:00 08/08/24 08:00 08/05/24 12:00 Narrative Exam General: Patient seems to be comfortable Head and neck: Hearing and vision normal Cardiovascular: Regular rate and rhythm, no murmurs. Respiratory: Clear to Auscultation bilaterally, no wheezing, no crackles. Abdomen: Soft, non-tender, no palpable masses or organomegdaly. Extremities: No edema, normal peripheral pulses. Genitourinary: no suprapubic tenderness, absent costovertebral tenderness. Neurology: Patient alert, awake and responding to questions, mostly nonsensical. Some slurred speech noted-baseline. Has developmental delay. Objective Labs 08/09/24 04:36 08/09/24 14:00 Labs: Laboratory Results - last 24 hr 08/08/24 05:19 WBC 2.7 L RBC 3.75 L Hgb 10.1 L Hct 29.9 L MCV 80 MCH 26.9 MCHC 33.8 RDW Std Deviation 41.1 Plt Count 74 L Neut % (Auto) 62 Lymph % (Auto) 29 [place] % (Auto) 8 Eos % (Auto) 0 Baso % (Auto) 0 Neut # (Auto) 1.7 L Lymph # (Auto) 0.8 L [place] # (Auto) 0.2 Eos # (Auto) 0.0 Baso # (Auto) 0.0 Immature Gran # (Auto) 0.01 H Absolute Nucleated RBC 0.00 Immature Gran % 0 Nucleated RBC % 0 Sodium 135 L Potassium 3.3 L Chloride 101 Carbon Dioxide 23.4 Anion Gap 11 BUN 10 Creatinine 1.0 Estim Creat Clear Calc 65.4 eGFR > 60 BUN/Creatinine Ratio 10 L Glucose 91 Calculated Osmolality 269 L Calcium 7.5 L Corrected Calcium 7.9 L Magnesium 1.4 L Total Bilirubin 0.2 L AST 38 H ALT 33 Alkaline Phosphatase 108 Total Protein 5.9 Albumin 3.5 Globulin 2.4 Albumin/Globulin Ratio 1.5 Quality Measures Quality Measures VTE prophylaxis Assessment & Plan Assessment Current Active Medications: Generic Name Dose Route Start Last Admin Trade Name Donny PRN Reason Stop Dose Admin Acetaminophen 650 mg 08/05/24 06:05 Acetaminophen 325 Mg Tablet PO 09/04/24 06:04 Q6H PRN Fever >100.3 or pain 1-10 Benzonatate 100 mg 08/06/24 09:45 08/07/24 19:59 Benzonatate 100 Mg Capsule PO 09/05/24 09:44 100 mg Q8HR PRN Administration COUGH Protocol Calcitriol 0.5 mcg 08/08/24 09:00 Calcitriol 0.25 Mcg Capsule PO 09/07/24 08:59 BID MARKEL Calcium Carbonate 600 mg 08/08/24 09:00 Calcium Carbonate 600 Mg Tablet PO 09/07/24 08:59 TID MARKEL Carbamazepine 200 mg 08/05/24 09:00 08/07/24 20:01 Carbamazepine 200 Mg Tablet PO 09/04/24 08:59 200 mg BID MARKEL Administration Doxycycline Hyclate 100 mg 08/06/24 21:00 08/07/24 19:59 Doxycycline 100 Mg Tablet PO 08/13/24 20:59 100 mg BID MARKEL Administration Heparin Sodium (Porcine) 5,000 unit 08/05/24 09:00 08/07/24 19:59 Heparin Sod Inj 5000 Unit/Ml Vial SC 08/19/24 08:59 5,000 unit Q12HR MARKEL Administration Ceftriaxone Sodium/Dextrose 1 gm in 50 mls @ 100 mls/hr 08/07/24 09:00 08/07/24 08:37 Rocephin/D5w 1gm Iv Premix IV 08/14/24 08:59 100 mls/hr QDAY MARKEL Administration Magnesium Sulfate 4 gm in 50 mls @ 12.5 mls/hr 08/08/24 08:50 Magnesium Sulfate Ivpb IV 08/08/24 12:49 X1 ONE Levetiracetam 500 mg 08/05/24 09:00 08/07/24 19:59 Levetiracetam 250 Mg Tablet PO 09/04/24 08:59 500 mg BID MARKEL Administration Ondansetron HCl 4 mg 08/05/24 06:05 Ondansetron Inj 2 Mg/Ml Inj 2 Ml IVP 09/04/24 06:04 Q6H PRN NAUSEA OR VOMITING Protocol Zonisamide 200 mg 08/05/24 09:00 08/07/24 19:59 Zonisamide 100 Mg Capsule PO 09/04/24 08:59 200 mg BID MARKEL Administration Plan Ms. Ac is a 64-year-old female with past medical history of developmental delay, seizure disorder, hypertension, hyperlipidemia, hypoparathyroidism(idiopathic), hypothyroidism, recurrent episodes of hypocalcemia(currently followed up by me at CKD clinic), presented to the ED due to seizure-like activity, altered mental status. Nephrology consulted for symptomatic hypocalcemia #Symptomatic hypocalcemia Patient had episode of hypercalcemia needing admission in March 2024 and the doses of calcitriol, calcium and vitamin D were decreased. Since then she was seen in my clinic with a close monitoring of her electrolytes. Will increase the doses of calcitriol and calcium supplements. Patient presented with seizure episode. Goal will be calcium between 9 and 10. Patient has history of hypoparathyroidism for years and hypocalcemia needing supplements. Received calcium gluconate for rapid correction. - Rocaltrol 0.5 mcg PO twice daily - Calcium carbonate 600 mg PO 3 times daily, 2 hours apart from meals - Monitor daily calcium levels - Magnesium repleted #GABRIEL-improving with IV fluids. Most likely prerenal azotemia from decreased p.o. intake. Baseline creatinine 0.8-1.0, Current creatinine 1.2-- 1.0. Patient takes losartan at home we will hold at this time due to GABRIEL KADI showed b/l cortical thinning with renal parenchymal scar formation, L renal calculi the largest of which is 9 mm. GABRIEL has resolved, patient's off IVF. Doing well with oral hydration. - Strict I's & O's - Monitor renal function - Encourage oral hydration #Seizure disorder -presented with breakthrough seizures probably related to hypocalcemia. Currently on Keppra, carbamazepine, risperidone, zonisamide - Resume home meds #Hx of Hypoparathyroidism #Normocytic anemia, thrombocytopenia chronic #Hypertension #hyperlipidemia #Hypothyroidism Management as per primary team. Thank you for allowing us to participate in the care of this patient. Plan of care discussed with attending Dr. Francis. Rodolfo Gay MD PGY-1 Attending Provider Attestation/Addendum Patient seen and examined with resident physician Dr. Toth. Note reviewed, agree with findings and recommendations. Today patient resting comfortably. Calcium slightly better. Increase the dose of calcitriol, calcium. If calcium levels about 8.0 she can be discharged . Spoke to primary team. IV calcium gluconate prn was given. Patient with severe hypoparathyroidism. Had extensive workup done in March 2024
[2024-08-08 09:11] LABS: Slide Review Platelets confirmed
[2024-08-08] MEDS: Magnesium Sulfate 4 GM Ivpb 4 GM/50 ML BAG IV (09:37)
[2024-08-08] MEDS: POTASSIUM CHLORIDE 10% 20 MEQ/15 ML UDC 40 MEQ PO (09:37)
[2024-08-08] MEDS: levETIRAcetam 250 MG TABLET 500 MG PO ×2 (09:37→20:48)
[2024-08-08] MEDS: CALCITRIOL 0.25 mCg CAPSULE 0.5 MCG PO ×2 (09:38→20:48)
[2024-08-08] MEDS: DOXYCYCLINE 100 MG TABLET PO ×2 (09:38→20:48)
[2024-08-08] MEDS: carBAMazepine 200 MG TABLET PO ×2 (09:38→20:48)
[2024-08-08] MEDS: CALCIUM CARBONATE 600 MG TABLET PO ×3 (09:38→21:06)
[2024-08-08] MEDS: cefTRIAXone/D5w 1gm IV premix 1 GM/50 ML BAG IV (09:38)
[2024-08-08] MEDS: ZONISAMIDE 100 MG CAPSULE 200 MG PO ×2 (09:40→20:48)
--- NOTE | 2024-08-08 12:04 | XR_ITS ---
Examination: AP chest single view Technique one AP portable upright chest single view Date and time: July 31, 2024 1216 hours Comparison August 05, 2024 INDICATIONS: Coughing congestion today. FINDINGS: Early pneumonia both bases Mild prominence left ventricle Moderate osteopenia IMPRESSION: Early pneumonia both bases, consider aspiration pneumonia
[2024-08-08] MEDS: ALBUTEROL/IPRATROPIUM (Duoneb) RT SOL 3 ML NEBU INH (12:32)
[2024-08-08 13:32] LABS: Albumin, Serum 3.6 gm/dL (3.4-4.8); Anion Gap 10 (7-16); BUN/Creatinine Ratio 9 Ratio (12-20); Blood Urea Nitrogen 9 mg/dL (9-23); Carbon Dioxide 21.6 mMol/L (20.0-31.0); Chloride 105 mMol/L (98-107); Estimated Creatinine Clearance 64.2 mL/min (>60); Glucose 125 mg/dL (74-106); Osmolality,Calculated 273 (275-295); Phosphorous 2.6 mg/dL (2.4-5.1); Potassium 3.9 mMol/L (3.4-5.1); Sodium 137 mMol/L (136-145); eGFR > 60 See Note
[2024-08-08 13:43] LABS: Calcium 6.7 mg/dL (8.3-10.6)
--- NOTE | 2024-08-08 14:02 | ESPR_ITS ---
<Statement entered by Wilfred Cantor MD - 08/08/24 17:36> LPatient examined and case discussed with the team including attending physician. Note reviewed, I agree with the care plan as documented. Please refer to the note below for further details. - Wilfred Cantor MD, PGY 2 Disclaimer: The document may contain phonetic/typographic errors due to voice recognition software. These errors are purely due to imperfections in the software program and should not be misconstrued in any way to compromise the substance of the patient's medical care during this visit. Documentation for date of: 08/08/24 Subjective Subjective Interval history: Patient seen today at the bedside found awake, alert, answers questions slowly. No overnight events reported. No active complaints at this time. Vitals and labs reviewed. Calcium levels have trended down, calcium carbonate and calcitriol frequency increased. Will follow-up with a.m. labs. Patient noted to be coughing today, CXR ordered which showed some aspiration pneumonia, will keep current Abx regimen at this time and ordered breathing treatments and antitussive. Exam Vital Signs Temp Pulse Resp BP Pulse Ox O2 Del Method O2 Flow Rate 98.0 F 81 20 129/81 98 Room Air 2 08/08/24 12:00 08/08/24 12:33 08/08/24 12:33 08/08/24 12:00 08/08/24 12:33 08/08/24 12:00 08/05/24 12:00 Narrative Exam Physical Exam GENERAL: NAD, AAOx3 HEENT: Moist mucosa. Eyes open, symmetrical, & clear CARDIO: Heart RRR, no obvious murmurs PULM: No noted coughing/dyspnea CTA B/L, no R/W/R GI: Abdomen soft, nondistended, no pain on palpation. BSx4 SKIN/MSK/EXT: No wounds/rashes/edema/amputations, no pain on palpation. Pedal pulses present B/L NEURO: AAOx3, no focal neuro deficits, able to move all 4 extremities Objective Labs 08/09/24 04:36 08/09/24 14:00 Labs: Laboratory Results - last 24 hr 08/08/24 08/08/24 05:19 12:51 WBC 2.7 L RBC 3.75 L Hgb 10.1 L Hct 29.9 L MCV 80 MCH 26.9 MCHC 33.8 RDW Std Deviation 41.1 Plt Count 74 L Neut % (Auto) 62 Lymph % (Auto) 29 [place] % (Auto) 8 Eos % (Auto) 0 Baso % (Auto) 0 Neut # (Auto) 1.7 L Lymph # (Auto) 0.8 L [place] # (Auto) 0.2 Eos # (Auto) 0.0 Baso # (Auto) 0.0 Immature Gran # (Auto) 0.01 H Absolute Nucleated RBC 0.00 Immature Gran % 0 Nucleated RBC % 0 Sodium 135 L 137 Potassium 3.3 L 3.9 D Chloride 101 105 Carbon Dioxide 23.4 21.6 Anion Gap 11 10 BUN 10 9 Creatinine 1.0 1.0 Estim Creat Clear Calc 65.4 64.2 eGFR > 60 > 60 BUN/Creatinine Ratio 10 L 9 L Glucose 91 125 H Calculated Osmolality 269 L 273 L Calcium 7.5 L 6.7 L* Corrected Calcium 7.9 L 7.0 L Phosphorus 2.6 Magnesium 1.4 L Total Bilirubin 0.2 L AST 38 H ALT 33 Alkaline Phosphatase 108 Total Protein 5.9 Albumin 3.5 3.6 Globulin 2.4 Albumin/Globulin Ratio 1.5 Misc Test Result Platelets confirmed Quality Measures Quality Measures VTE prophylaxis Assessment & Plan Assessment Current Active Medications: Generic Name Dose Route Start Last Admin Trade Name Freq PRN Reason Stop Dose Admin Acetaminophen 650 mg 08/05/24 06:05 Acetaminophen 325 Mg Tablet PO 09/04/24 06:04 Q6H PRN Fever >100.3 or pain 1-10 Benzonatate 100 mg 08/06/24 09:45 08/07/24 19:59 Benzonatate 100 Mg Capsule PO 09/05/24 09:44 100 mg Q8HR PRN Administration COUGH Protocol Calcitriol 0.5 mcg 08/08/24 09:00 08/08/24 09:38 Calcitriol 0.25 Mcg Capsule PO 09/07/24 08:59 0.5 mcg BID MARKEL Administration Calcium Carbonate 600 mg 08/08/24 09:00 08/08/24 09:38 Calcium Carbonate 600 Mg Tablet PO 09/07/24 08:59 600 mg TID MARKEL Administration Carbamazepine 200 mg 08/05/24 09:00 08/08/24 09:38 Carbamazepine 200 Mg Tablet PO 09/04/24 08:59 200 mg BID MARKEL Administration Doxycycline Hyclate 100 mg 08/06/24 21:00 08/08/24 09:38 Doxycycline 100 Mg Tablet PO 08/13/24 20:59 100 mg BID MARKEL Administration Heparin Sodium (Porcine) 5,000 unit 08/05/24 09:00 08/08/24 09:39 Heparin Sod Inj 5000 Unit/Ml Vial SC 08/19/24 08:59 Not Given Q12HR MARKEL Ceftriaxone Sodium/Dextrose 1 gm in 50 mls @ 100 mls/hr 08/07/24 09:00 08/08/24 09:38 Rocephin/D5w 1gm Iv Premix IV 08/14/24 08:59 100 mls/hr QDAY MARKEL Administration Levetiracetam 500 mg 08/05/24 09:00 08/08/24 09:37 Levetiracetam 250 Mg Tablet PO 09/04/24 08:59 500 mg BID MARKEL Administration Ondansetron HCl 4 mg 08/05/24 06:05 Ondansetron Inj 2 Mg/Ml Inj 2 Ml IVP 09/04/24 06:04 Q6H PRN NAUSEA OR VOMITING Protocol Zonisamide 200 mg 08/05/24 09:00 08/08/24 09:40 Zonisamide 100 Mg Capsule PO 09/04/24 08:59 200 mg BID MARKEL Administration Plan 64-year-old female with past medical history of developmental delay, seizure disorder, hypertension, hyperlipidemia, hypoparathyroidism, hypothyroidism, and hypocalcemia who presented to the ED from [facility] on 08/05/2024 due to episode of altered mental status. She was subsequently found to have UTI and admitted for further management. #Acute Encephalopathy-improving #GPC UTI #Aspiration Pneumonia Patient came with AMS etiology can include breakthrough seizure, however no seizure activity was witnessed vs UTI UA showed positive leukocyte esterase, 31 RBCs and 488 WBCs with rare bacteria. Patient denies any urinary symptoms, fever and vomiting. Previous cultures showed pansensitive E. coli therefore started on ceftriaxone. Underlying infection may have triggered breakthrough seizure. Urine cultures pending Blood cultures GPC positive (prelim) ? Doxycycline 100 mg twice daily ? Ceftriaxone ? Follow repeat blood cultures (negative in 24 hours) #Moderate Hypocalcemia, Symptomatic On admission potassium was 2.8, calcium was 7.5, patient known to have low levels and is on supplements. Ca : 7.1 -> 7.6 -> 7 -> 7.7 -> 7.5 -> 6.7 today Goal calcium between 9?10 per nephrology ? Continue calcitriol BID and calcium carbonate TID supplementation ? Nephrology consulted, appreciate recommendations #Breakthrough seizure #History of seizure disorder Patient had episode of altered mental status followed by what appeared to be a post-ictal event. On examination patient also has evidence of tongue biting. Patient is at baseline mental status at this time ? Continue home levetiracetam 500 mg BID ? Continue home carbamazepine 200 mg BID ? Continue home zonisamide 200 mg BID #Primary hypertension #Hyperlipidemia #Hypothyroidism Chronic medical conditions ? Continue home medications with med rec Health Maintenance: Dispo: Improving calcium levels, urine cultures pending on IV antibiotics DVT prophylaxis: Heparin GI prophylaxis: Not indicated Diet: Cardiac Garcia: None Lines: PIV Code: Full Case discussed with my senior Dr. aCntor and my attending Dr. Poncho Hamilton MD PGY-1 Attending Provider Attestation/Addendum IMeeta DO, attest that I was physically present for the johnson portions of the service and evaluated the patient with the resident and I reviewed and discussed the case with the resident and agree with the resident's findings and plans of care as documented above Patient seen and eval this a.m. She states that she is feeling well. No acute events overnight. Calcium continues to be low.Will increase calcitriol to twice a day and calcium carbonate to 3 times a day. Will also replete magnesium. If patient condition continues to improve, anticipate discharge within the next 24 hours.
[2024-08-08] MEDS: guaiFENesin SYRUP 200 MG/10 ML UDC 100 MG PO (14:42)
[2024-08-08] MEDS: BENZONATATE 100 MG CAPSULE PO (20:50)
[2024-08-09] VITALS (9 sets, daily range): BP systolic 125–155; BP diastolic 76–90; PULSE 76–89; RESP 15–22; TEMP 36.6–36.8; O2SAT 90–96
[2024-08-09] MEDS: BENZONATATE 100 MG CAPSULE PO ×2 (05:58→21:18)
[2024-08-09] MEDS: LEVOTHYROXINE SODIUM 112 MCG, LEVOTHYROXINE SODIUM 25 MCG 137 MCG PO (05:58)
[2024-08-09] MEDS: CALCIUM CARBONATE 600 MG TABLET PO ×3 (05:58→21:18)
[2024-08-09 06:11] LABS: Basophils % (Auto) 0 % (0-2.5); Eosinophils % (Auto) 0 % (0-10); Hematocrit 31.6 % (36.0-46.0); Hemoglobin 10.6 g/dL (12.0-16.0); Immature Granulocytes % (Auto) 0 % (0-0); Immature Granulocytes Auto 0.01 Thou/mm3 (0.00-0.00); Lymphocytes # (Auto) 0.8 Thou/mm3 (1.0-4.8); Lymphocytes % (Auto) 30 % (10-50); Mean Corpuscular HGB Conc 33.5 g/dl (31.0-37.0); Mean Corpuscular Hemoglobin 26.8 pg (25.0-35.0); Mean Corpuscular Volume 80 fL (80-100); Monocytes # (Auto) 0.2 Thou/mm3 (0.0-0.8); Monocytes % (Auto) 9 % (0-12); Neutrophils # (Auto) 1.5 Thou/mm3 (1.8-7.7); Neutrophils % (Auto) 61 % (37-80); Nucleated Red Blood Cell % 0 /100 WBC (0); Platelet Count 97 Thou/mm3 (140-440); Red Blood Count 3.96 Miln/mm3 (4.00-5.20)
[2024-08-09 06:13] LABS: White Blood Count 2.5 Thou/mm3 (3.6-11.0)
[2024-08-09 06:21] LABS: Alanine Aminotransferase 29 U/L (10-49); Albumin, Serum 3.7 gm/dL (3.4-4.8); Albumin/Globulin Ratio 1.7 (1.2-2.2); Alkaline Phosphatase 113 U/L (46-116); Anion Gap 13 (7-16); Aspartate Amino Transferase 34 U/L (0-34); BUN/Creatinine Ratio 10 Ratio (12-20); Bilirubin,Total 0.3 mg/dL (0.3-1.2); Blood Urea Nitrogen 9 mg/dL (9-23); Calcium (Corrected) 7.2 mg/dL (8.5-10.1); Carbon Dioxide 22.4 mMol/L (20.0-31.0); Chloride 103 mMol/L (98-107); Creatinine (Component) 0.9 mg/dL (0.6-1.3); Estimated Creatinine Clearance 71.4 mL/min (>60); Globulin 2.2 gm/dL (2.3-3.5); Glucose 104 mg/dL (74-106); Magnesium 1.8 mg/dL (1.6-2.6); Osmolality,Calculated 274 (275-295); Potassium 3.8 mMol/L (3.4-5.1); Sodium 138 mMol/L (136-145); Total Protein 5.9 gm/dL (5.7-8.2); eGFR > 60 See Note
[2024-08-09] MEDS: CALCITRIOL 0.25 mCg CAPSULE 1 MCG PO ×2 (09:48→21:18)
[2024-08-09] MEDS: Magnesium Sulfate 4 GM Ivpb 4 GM/50 ML BAG IV (09:48)
[2024-08-09] MEDS: levETIRAcetam 250 MG TABLET 500 MG PO ×2 (09:48→21:18)
[2024-08-09] MEDS: HEPARIN SOD INJ 5000 UNIT/ML VIAL SC (09:49)
[2024-08-09] MEDS: carBAMazepine 200 MG TABLET PO ×2 (09:49→21:21)
[2024-08-09] MEDS: cefTRIAXone/D5w 1gm IV premix 1 GM/50 ML BAG IV (09:49)
--- NOTE | 2024-08-09 10:51 | ESDS_ITS ---
<Statement entered by Meeta Isaac DO - 08/09/24 14:53> I, Meeta Isaac DO, attest that I was physically present for the johnson portions of the service and evaluated the patient with the resident and I reviewed and discussed the case with the resident and agree with the resident's findings and plans of care as documented above Planned Discharge Date 08/09/24 DS: Providers Provider Date of admission: 08/07/24 10:42 Primary care physician: YANI Solano Admitting Provider: Lam Mike MD Attending Provider on Admission: Meeta Isaac DO Consults: 08/06/24 09:48 Consult to Nephrology Routine Comment: Consulting Provider: Stephanie Francis Attending Provider on DC: Meeta Isaac DO Discharging Provider: Wilfred Cantor MD DS: Diagnosis Discharge Diagnosis (1) Hypocalcemia: Status: Chronic (2) Seizures: Status: Acute Problem List Completed Was Problem List Reviewed/Reconciled?: Yes Hospital Course Hospital Course Hospital course: Hospital Course: Ms Ac is a 64-year-old female with past medical history of developmental delay, seizure disorder, hypertension, hyperlipidemia, hypoparathyroidism, hypothyroidism, and hypocalcemia who presented to the ED from [facility] on 08/05/2024 due to episode of altered mental status. She was subsequently found to have UTI, UA showed positive leukocyte esterase, 31 RBCs and 488 WBCs with rare bacteria. Previous cultures showed pansensitive E. coli, there was also concern of aspiration pneumonia during this hospitalization, therefore started on Doxycycline and ceftriaxone. Blood cultures were GPC positive initially, so repeat blood cultures, were ordered which were negative. Patient's seizures and altered mentation was likely due to electrolyte abnormalities, Ca throughout hospitalization remained 6.9 - 7.4; Nephrology consultation was requested who recommended resuming calcium carbonate and calcitriol. Doses were adjusted to optimize. Home antiepileptics were resumed. Patient appears to be at baseline mentation at the time of DC. We recommend close follow up with PCP and Nephrology on discharge. Problems on this admission: - Acute Encephalopathy-improving - UTI ruled out. - Aspiration Pneumonia - Moderate Hypocalcemia, Symptomatic - Breakthrough seizure - History of seizure disorder - Primary hypertension - Hyperlipidemia - Hypothyroidism Procedures: None Discharge instructions: - Follow up with PCP within 1 week. Seizures likely due to Hypocalcemia. - Calcium supplement increased to four times a day - Calcitriol also increased to 1mcg twice a day - Please follow up outpatient with Nephrology Dr Francis for further optimization - Take Azithromycin 500mg daily for 5 days to complete antibiotic course - Continue other home medications as prescribed. - Return to ED if symptoms worsen. We are grateful to be able to participate in Ms Ac's care. We wish her the best. Plan of care discussed with attending Wilfred Alvarado M.D. PGY2 Disclaimer: Minor errors in chute worker may be present as this note was dictated using voice recognition software. Status at Discharge Cognitive/behavioral status at discharge: Stable and returned to baseline Time Spent with Patient Time attestation: Total time spent providing and/or coordinating discharge services: more than 50% Time spent: Greater than 30 minutes Exam Vital Signs Temp Pulse Resp BP Pulse Ox O2 Del Method O2 Flow Rate 97.9 F 85 18 148/86 H 92 L Room Air 2 08/09/24 08:00 08/09/24 08:00 08/09/24 08:00 08/09/24 08:00 08/09/24 08:00 08/09/24 08:00 08/09/24 04:00 Narrative Exam Constitutional Alert, oriented x2(baseline) , comfortable HEENT Vision grossly intact. Patent nares. Trachea midline. Slowed speech (baseline) Respiratory Chest normal on inspection and clear to auscultation bilaterally. Cardiovascular S1 and S2 audible, RRR. No murmurs or carotid bruit. No gross JVD. Abdominal Soft and BS + ; non tender to palpation in all quadrants. Genitourinary No bladder tenderness, no flank pain. Normal to palpation. Musculoskeletal Extremities tone within normal limits. No LE edema. Neurological CN II - XII grossly intact. Extremity motor and sensation grossly intact. Skin Warm, dry and intact. No apparent lesions. Psychiatric Patient has a good affect, is cooperative. Mild develop delay Discharge Plan Plan Patient Disposition: Xfer Skilled Nsg Fac (SNF) Patient condition on transfer: Stable Care Plan Goals: - Follow up with PCP within 1 week. Seizures likely due to Hypocalcemia. - Calcium supplement increased to four times a day - Calcitriol also increased to 1mcg twice a day - Please follow up outpatient with Nephrology Dr Francis for further optimization - Take Azithromycin 500mg daily for 5 days to complete antibiotic course - Continue other home medications as prescribed. - Return to ED if symptoms worsen. Prescriptions/Referrals Prescriptions/Med Rec: New azithromycin 500 mg tablet 500 mg PO QDAY 5 Days Qty: 5 0RF dextromethorphan-guaifenesin 10-100 mg/5 mL liquid 10 ml PO Q8H PRN (Reason: cough) Qty: 500 0RF cholecalciferol (vitamin D3) [Vitamin D3] 25 mcg (1,000 unit) capsule 25 mcg PO QDAY 30 Days Qty: 30 0RF Continued cetirizine 10 mg Tablet 10 mg PO QDAY olopatadine 0.1 % drops 1 drp OPHTHALMIC (EYE) BID levothyroxine 112 mcg tablet 137 mcg PO ACBR losartan 50 mg tablet 50 mg PO QDAY levetiracetam 500 mg tablet 500 mg PO BID simvastatin 40 mg tablet 40 mg PO HS zonisamide 100 mg capsule 200 mg PO BID carbamazepine 200 mg tablet 200 mg PO BID magnesium oxide 400 mg (241.3 mg magnesium) tablet 400 mg PO QDAY oxybutynin chloride 5 mg tablet 5 mg PO QDAY risperidone 0.5 mg tablet 0.5 mg PO BID Changed ferrous sulfate [FeroSul] 325 mg (65 mg iron) Tablet 325 mg PO Q OTHER DAY Qty: 30 0RF calcitriol 0.25 mcg capsule 1 mcg PO BID Qty: 30 0RF calcium carbonate 260 mg calcium (648 mg) tablet 600 mg PO QID Qty: 30 0RF Discontinued hydroxyzine HCl 25 mg tablet 25 mg PO HS fluticasone propionate 50 mcg/actuation Anderson,Suspension 2 spray INTRANASAL QDAY Rx Instructions: administer into each nostril Referrals: Sirena Sandhu FNP [Primary Care Provider] - Patient/Caregiver Discharge Instructions Discharge Activity: resume usual activities Print Language: Korean Stand Alone Forms: Ana Award Info., Patient Portal Info Letter Discharge Order Discharge Orders: Discharge (Routine); Ordered 08/09/24 Ordered By: Wilfred Cantor Quality Discharge Quality Measures VTE prophylaxis
[2024-08-09 11:23] LABS: Albumin, Serum 3.7 gm/dL (3.4-4.8); Anion Gap 9 (7-16); BUN/Creatinine Ratio 11 Ratio (12-20); Blood Urea Nitrogen 10 mg/dL (9-23); Carbon Dioxide 23.6 mMol/L (20.0-31.0); Chloride 104 mMol/L (98-107); Creatinine (Component) 0.9 mg/dL (0.6-1.3); Estimated Creatinine Clearance 71.4 mL/min (>60); Glucose 107 mg/dL (74-106); Osmolality,Calculated 272 (275-295); Phosphorous 2.9 mg/dL (2.4-5.1); Potassium 3.7 mMol/L (3.4-5.1); Sodium 137 mMol/L (136-145); eGFR > 60 See Note
[2024-08-09 11:27] LABS: Calcium 6.7 mg/dL (8.3-10.6); Calcium (Corrected) 6.9 mg/dL (8.5-10.1)
[2024-08-09] MEDS: CALCIUM GLUC/NS 1000MG IVPB 1,000 MG/50 ML BAG 50 MG IV ×2 (12:22→13:27)
--- NOTE | 2024-08-09 13:59 | PD.RESPRO ---
Documentation for date of: 08/09/24 Subjective Subjective Interval history: Chart review done as patient has developmental delay and could not give much information. No family or care provider at bedside. Ms. Ac is a 64-year-old female with past medical history of developmental delay, seizure disorder, hypertension, hyperlipidemia, hypoparathyroidism(idiopathic), hypothyroidism, recurrent episodes of hypocalcemia(currently followed up by me at CKD clinic), presented to the ED due to seizure-like activity, altered mental status. Patient has history of seizure disorder is seen by neurologist Dr. Elizondo. In the emergency department labs showed WBC 3.3, hemoglobin 9.7, platelets 88. Coags normal. Sodium 135, potassium 2.8, BUN 17, creatinine 1.2, GFR 51, calcium 7.5, AST 66, ALT 48, alk phos 113, albumin 3.6, (patient had similar episode in March and that time her PTH was 9.6, vitamin D and 125 vitamin D were normal, TSH normal) urinalysis showed pyuria. Urine tox screen negative head CT negative chest x-ray showed questionable left base pneumonia. Home medications include calcitriol 0.25 mcg p.o. daily, calcium carbonate, Tegretol, iron, Keppra, levothyroxine, losartan, magnesium, oxybutynin, risperidone, simvastatin, zonisamide Normal saline fluid boluses, IV calcium gluconate were given for hypocalcemia and renal consultation was requested. 08/06/2024 patient currently seen in medical floor. Seizure precautions noted. Is developmentally delayed. Calcium 7.0, phosphorus 3.4, magnesium 1.7. 08/07/24: Patient seen and examined at bedside, resting comfortably. Patient Poorly responsive, followed some simple commands, mostly gave nonsensical answers. WBC 3.7, Hg 105, Na 135, K 3.6, bicarb 23.4, BUN 10, creatinine 1.0, eGFR >60 Calcium increased to 7.7. KADI showed b/l cortical thinning with renal parenchymal scar formation, L renal calculi the largest of which is 9 mm. 08/08/2024: Patient seen and examined at bedside, resting comfortably. Patient seen more alert today. Calcium decreased to 7.5, will increase calcium and calcitriol. Order for calcium to give him at least 2 hours separate from meals. WBC 2.7, hemoglobin 10.1, sodium 135, potassium 3.3, bicarb 23.4, BUN 10, creatinine 1.0, EGFR greater than 60. Magnesium is 1.4, repleted. 08/09/2024: Patient seen and examined at bedside, resting comfortably. Pateint denied chest pain, abdominal pain, SOB. Received calcium gluconate due to decrease in calcium despite supplements. Supplements increased. Patient calcium remains low, unstable, at 6.7. Exam Vital Signs Temp Pulse Resp BP Pulse Ox O2 Del Method O2 Flow Rate 97.9 F 89 18 125/90 H 96 Room Air 2 08/09/24 11:45 08/09/24 12:00 08/09/24 11:45 08/09/24 11:45 08/09/24 11:45 08/09/24 11:45 08/09/24 04:00 Narrative Exam General: Patient seems to be comfortable Head and neck: Hearing and vision normal Cardiovascular: Regular rate and rhythm, no murmurs. Respiratory: Clear to Auscultation bilaterally, no wheezing, no crackles. Abdomen: Soft, non-tender, no palpable masses or organomegdaly. Extremities: No edema, normal peripheral pulses. Genitourinary: no suprapubic tenderness, absent costovertebral tenderness. Neurology: Patient alert, awake and responding to questions, mostly nonsensical. Some slurred speech noted-baseline. Has developmental delay. Objective Labs 08/09/24 04:36 08/09/24 14:00 Labs: Laboratory Results - last 24 hr 08/09/24 08/09/24 04:36 10:45 WBC 2.5 L RBC 3.96 L Hgb 10.6 L Hct 31.6 L MCV 80 MCH 26.8 MCHC 33.5 RDW Std Deviation 41.0 Plt Count 97 L D Neut % (Auto) 61 Lymph % (Auto) 30 [place] % (Auto) 9 Eos % (Auto) 0 Baso % (Auto) 0 Neut # (Auto) 1.5 L Lymph # (Auto) 0.8 L [place] # (Auto) 0.2 Eos # (Auto) 0.0 Baso # (Auto) 0.0 Immature Gran # (Auto) 0.01 H Absolute Nucleated RBC 0.00 Immature Gran % 0 Nucleated RBC % 0 Sodium 138 137 Potassium 3.8 3.7 Chloride 103 104 Carbon Dioxide 22.4 23.6 Anion Gap 13 9 BUN 9 10 Creatinine 0.9 0.9 Estim Creat Clear Calc 71.4 71.4 eGFR > 60 > 60 BUN/Creatinine Ratio 10 L 11 L Glucose 104 107 H Calculated Osmolality 274 L 272 L Calcium 7.0 L 6.7 L* Corrected Calcium 7.2 L 6.9 L* Phosphorus 2.9 Magnesium 1.8 Total Bilirubin 0.3 AST 34 ALT 29 Alkaline Phosphatase 113 Total Protein 5.9 Albumin 3.7 3.7 Globulin 2.2 L Albumin/Globulin Ratio 1.7 Quality Measures Quality Measures VTE prophylaxis Assessment & Plan Assessment Current Active Medications: Generic Name Dose Route Start Last Admin Trade Name Freq PRN Reason Stop Dose Admin Acetaminophen 650 mg 08/05/24 06:05 Acetaminophen 325 Mg Tablet PO 09/04/24 06:04 Q6H PRN Fever >100.3 or pain 1-10 Benzonatate 100 mg 08/06/24 09:45 08/09/24 05:58 Benzonatate 100 Mg Capsule PO 09/05/24 09:44 100 mg Q8HR PRN Administration COUGH Protocol Calcitriol 1 mcg 08/09/24 09:00 08/09/24 09:48 Calcitriol 0.25 Mcg Capsule PO 09/08/24 08:59 1 mcg BID MARKEL Administration Calcium Carbonate 600 mg 08/09/24 12:00 08/09/24 12:30 Calcium Carbonate 600 Mg Tablet PO 09/08/24 11:59 600 mg QID MARKEL Administration Carbamazepine 200 mg 08/05/24 09:00 08/09/24 09:49 Carbamazepine 200 Mg Tablet PO 09/04/24 08:59 200 mg BID MARKEL Administration Heparin Sodium (Porcine) 5,000 unit 08/05/24 09:00 08/09/24 09:49 Heparin Sod Inj 5000 Unit/Ml Vial SC 08/19/24 08:59 5,000 unit Q12HR MARKEL Administration Ceftriaxone Sodium/Dextrose 1 gm in 50 mls @ 100 mls/hr 08/07/24 09:00 08/09/24 09:49 Rocephin/D5w 1gm Iv Premix IV 08/14/24 08:59 100 mls/hr QDAY MARKEL Administration Levetiracetam 500 mg 08/05/24 09:00 08/09/24 09:48 Levetiracetam 250 Mg Tablet PO 09/04/24 08:59 500 mg BID MARKEL Administration Levothyroxine Sodium 112 mcg/ 137 mcg 08/09/24 06:00 08/09/24 05:58 Levothyroxine Sodium 25 mcg PO 09/08/24 05:59 137 mcg ACBR MARKEL Administration Ondansetron HCl 4 mg 08/05/24 06:05 Ondansetron Inj 2 Mg/Ml Inj 2 Ml IVP 09/04/24 06:04 Q6H PRN NAUSEA OR VOMITING Protocol Zonisamide 200 mg 08/05/24 09:00 08/09/24 09:30 Zonisamide 100 Mg Capsule PO 09/04/24 08:59 Not Given BID MARKEL Plan Ms. Ac is a 64-year-old female with past medical history of developmental delay, seizure disorder, hypertension, hyperlipidemia, hypoparathyroidism(idiopathic), hypothyroidism, recurrent episodes of hypocalcemia(currently followed up by me at CKD clinic), presented to the ED due to seizure-like activity, altered mental status. Nephrology consulted for symptomatic hypocalcemia #Symptomatic hypocalcemia Patient had episode of hypercalcemia needing admission in March 2024 and the doses of calcitriol, calcium and vitamin D were decreased. Since then she was seen in my clinic with a close monitoring of her electrolytes. Will increase the doses of calcitriol and calcium supplements. Patient presented with seizure episode. Goal will be calcium between 9 and 10. Patient has history of hypoparathyroidism for years and hypocalcemia needing supplements. Received calcium gluconate for rapid correction. - Rocaltrol 1 mcg PO twice daily - Calcium carbonate 600 mg PO 4 times daily, 2 hours apart from meals - Monitor daily calcium levels - Magnesium repleted #GABRIEL-improving with IV fluids. Most likely prerenal azotemia from decreased p.o. intake. Baseline creatinine 0.8-1.0, Current creatinine 1.2-- 1.0. Patient takes losartan at home we will hold at this time due to GABRIEL KADI showed b/l cortical thinning with renal parenchymal scar formation, L renal calculi the largest of which is 9 mm. GABRIEL has resolved, patient's off IVF. Doing well with oral hydration. - Strict I's & O's - Monitor renal function - Encourage oral hydration #Seizure disorder -presented with breakthrough seizures probably related to hypocalcemia. Currently on Keppra, carbamazepine, risperidone, zonisamide - Resume home meds #Hx of Hypoparathyroidism #Normocytic anemia, thrombocytopenia chronic #Hypertension #hyperlipidemia #Hypothyroidism Management as per primary team. Thank you for allowing us to participate in the care of this patient. Plan of care discussed with attending Dr. Francis. Rodolfo Gay MD PGY-1 Attending Provider Attestation/Addendum Patient seen and examined with resident physician Dr. Toth. Note reviewed, agree with findings and recommendations. Today patient resting comfortably. Calcium slightly better. Increase the dose of calcitriol, calcium. If calcium levels about 8.0 she can be discharged . Spoke to primary team. IV calcium gluconate was given. Patient with severe hypoparathyroidism. Had extensive workup done in March 2024
[2024-08-09 14:28] LABS: Albumin, Serum 3.8 gm/dL (3.4-4.8); Anion Gap 12 (7-16); BUN/Creatinine Ratio 9 Ratio (12-20); Blood Urea Nitrogen 11 mg/dL (9-23); Calcium 7.4 mg/dL (8.3-10.6); Calcium (Corrected) 7.6 mg/dL (8.5-10.1); Carbon Dioxide 24.5 mMol/L (20.0-31.0); Chloride 101 mMol/L (98-107); Creatinine (Component) 1.2 mg/dL (0.6-1.3); Estimated Creatinine Clearance 53.5 mL/min (>60); Glucose 122 mg/dL (74-106); Osmolality,Calculated 274 (275-295); Phosphorous 2.8 mg/dL (2.4-5.1); Potassium 3.7 mMol/L (3.4-5.1); Sodium 137 mMol/L (136-145); eGFR 51 See Note
[2024-08-09] MEDS: CHOLECALCIFEROL (Vitamin D3) 1,000 IU TABLET 1000 IU PO (14:47)
--- NOTE | 2024-08-09 19:30 | PC.NURSE ---
Report received, pt has discharge orders in place.
--- NOTE | 2024-08-09 20:15 | PC.NURSE ---
Spoke with Dr. Francis to confirm ok for d/c, ok for pt to be discharged per MD.
--- NOTE | 2024-08-09 20:20 | PC.NURSE ---
Contacted [employer] [employer] owner-Crissy, to inform of discharge, and if will be picking pt up, per Crissy there has been no communication with her throughout the day with plan to discharge pt, unable to get pt r/t no staff at facility that can come-day staff home unable to send night staff, requesting pt be discharged in AM when staff available to black pickler pt, discussed with Crissy MORRIS will be contacted and call back
--- NOTE | 2024-08-09 20:50 | PC.NURSE ---
Spoke with Dr. Zhang regarding shelter unable to pick of pt today, ok for pt to stay and d/c in AM, to inform day team regarding pt staying-called and updated Crissy
[2024-08-10] VITALS: BP 119/78; PULSE 87; RESP 21; TEMP 36.4; O2SAT 94
[2024-08-10 00:33] VITALS: PULSE 88
[2024-08-10 04:00] VITALS: BP 140/81; PULSE 83; RESP 16; TEMP 36.2; O2SAT 94
[2024-08-10 04:23] VITALS: PULSE 69
[2024-08-10] MEDS: LEVOTHYROXINE SODIUM 112 MCG, LEVOTHYROXINE SODIUM 25 MCG 137 MCG PO (05:09)
[2024-08-10] MEDS: CALCIUM CARBONATE 600 MG TABLET PO (05:09)
[2024-08-10 05:18] LABS: Magnesium 1.6 mg/dL (1.6-2.6)
[2024-08-10 08:00] VITALS: BP 122/88; PULSE 78; RESP 20; TEMP 36.3; O2SAT 92
[2024-08-10] MEDS: levETIRAcetam 250 MG TABLET 500 MG PO (08:02)
[2024-08-10] MEDS: CALCITRIOL 0.25 mCg CAPSULE 1 MCG PO (08:02)
[2024-08-10] MEDS: HEPARIN SOD INJ 5000 UNIT/ML VIAL SC (08:03)
[2024-08-10] MEDS: carBAMazepine 200 MG TABLET PO (08:03)
[2024-08-10] MEDS: cefTRIAXone/D5w 1gm IV premix 1 GM/50 ML BAG IV (08:03)
[2024-08-10] MEDS: ZONISAMIDE 100 MG CAPSULE 200 MG PO (08:48)
--- NOTE | 2024-08-10 11:43 | PD.NEPHPROG ---
Documentation for date of: 08/10/24 Subjective Subjective Interval history: Chart review done as patient has developmental delay and could not give much information. No family or care provider at bedside. Ms. Ac is a 64-year-old female with past medical history of developmental delay, seizure disorder, hypertension, hyperlipidemia, hypoparathyroidism(idiopathic), hypothyroidism, recurrent episodes of hypocalcemia(currently followed up by me at [facility]), presented to the ED due to seizure-like activity, altered mental status. Patient has history of seizure disorder is seen by neurologist Dr. Elizondo. In the emergency department labs showed WBC 3.3, hemoglobin 9.7, platelets 88. Coags normal. Sodium 135, potassium 2.8, BUN 17, creatinine 1.2, GFR 51, calcium 7.5, AST 66, ALT 48, alk phos 113, albumin 3.6, (patient had similar episode in March and that time her PTH was 9.6, vitamin D and 125 vitamin D were normal, TSH normal) urinalysis showed pyuria. Urine tox screen negative head CT negative chest x-ray showed questionable left base pneumonia. Home medications include calcitriol 0.25 mcg p.o. daily, calcium carbonate, Tegretol, iron, Keppra, levothyroxine, losartan, magnesium, oxybutynin, risperidone, simvastatin, zonisamide Normal saline fluid boluses, IV calcium gluconate were given for hypocalcemia and renal consultation was requested. 08/06/2024 patient currently seen in medical floor. Seizure precautions noted. Is developmentally delayed. Calcium 7.0, phosphorus 3.4, magnesium 1.7 08/10/2024 patient currently seen in medical floor. Resting comfortably. Calcium still remains low at 7.6. However clinically asymptomatic. She can be discharged today. Review of Systems Review of Systems Narrative Review of Systems: Patient with developmental delay. Complaining of cough. Denies any chest pain, shortness of breath. Exam Vital Signs Temp Pulse Resp BP Pulse Ox O2 Del Method O2 Flow Rate 36.3 C 78 20 122/88 H 92 L Room Air 2 08/10/24 08:00 08/10/24 08:00 08/10/24 08:00 08/10/24 08:00 08/10/24 08:00 08/10/24 08:00 08/09/24 15:56 Narrative Exam General: Patient seems to be comfortable Head and neck: Hearing and vision normal Cardiovascular: Regular rate and rhythm, no murmurs. Respiratory: Clear to Auscultation bilaterally, no wheezing, no crackles. Abdomen: Soft, non-tender, no palpable masses or organomegdaly. Extremities: No edema, normal peripheral pulses. Genitourinary: no suprapubic tenderness, absent costovertebral tenderness. Neurology: Patient alert, awake and responding to questions, mostly nonsensical. Some slurred speech noted-baseline. Has developmental delay. Objective Labs 08/09/24 04:36 08/09/24 14:00 Labs: Laboratory Results - last 24 hr 08/09/24 08/10/24 14:00 04:04 Sodium 137 Potassium 3.7 Chloride 101 Carbon Dioxide 24.5 Anion Gap 12 BUN 11 Creatinine 1.2 Estim Creat Clear Calc 53.5 L eGFR 51 L BUN/Creatinine Ratio 9 L Glucose 122 H Calculated Osmolality 274 L Calcium 7.4 L Corrected Calcium 7.6 L Phosphorus 2.8 Magnesium 1.6 Albumin 3.8 Assessment & Plan Assessment and plan (1) Hypocalcemia: Status: Chronic (2) Seizures: Status: Acute Additional Assessment & Plan Additional Plan: # Symptomatic hypocalcemia Patient had episode of hypercalcemia needing admission in March 2024 and the doses of calcitriol, calcium and vitamin D were decreased. Since then she was seen in my clinic with a close monitoring of her electrolytes. Will increase the doses of calcitriol and calcium supplements. Patient presented with seizure episode. Goal will be calcium between 9 and 10. Patient has history of hypoparathyroidism for years and hypocalcemia needing supplements. Discharge her on calcium, calcitriol #GABRIEL-improving with IV fluids. Most likely prerenal azotemia from decreased p.o. intake. Baseline creatinine 0.8-1.0 Current creatinine 1.2-- 1.0 Resume losartan #Seizure disorder -presented with breakthrough seizures probably related to hypocalcemia. Currently on Keppra, carbamazepine, risperidone, zonisamide #Hx of Hypoparathyroidism PTH significantly suppressed. #Normocytic anemia, thrombocytopenia chronic hemoglobin 9.7 on ferrous sulfate #Hypertension Blood pressure acceptable. Resume losartan #hyperlipidemia on atorvastatin 40mg HS #Hypothyroidism on levothyroxine Plan of care discussed with primary team Quality - progress note Quality Measures Quality Measures: VTE prophylaxis Reason for Continued Stay Reason for Continued Stay: further monitoring
--- NOTE | 2024-08-10 13:05 | PC.SS ---
Patient discharged this morning. [facility] staff transported patient.
--- NOTE | 2024-08-10 16:43 | ESDS_ITS ---
Planned Discharge Date 08/10/24 DS: Providers Provider Date of admission: 08/07/24 10:42 Primary care physician: YANI Solano Admitting Provider: Lam Mike MD Attending Provider on Admission: Meeta Isaac DO Consults: 08/06/24 09:48 Consult to Nephrology Routine Comment: Consulting Provider: Stephanie Francis Attending Provider on DC: Paty Hanna MD Discharging Provider: Wilfred Cantor MD DS: Diagnosis Discharge Diagnosis (1) UTI (urinary tract infection): Status: Acute (2) Hypocalcemia: Status: Chronic Problem List Completed Was Problem List Reviewed/Reconciled?: Yes Hospital Course Hospital Course Hospital course: Hospital Course: Ms Ac is a 64-year-old female with past medical history of developmental delay, seizure disorder, hypertension, hyperlipidemia, hypoparathyroidism, hypothyroidism, and hypocalcemia who presented to the ED from [facility] on 08/05/2024 due to episode of altered mental status. She was subsequently found to have UTI, UA showed positive leukocyte esterase, 31 RBCs and 488 WBCs with rare bacteria. Previous cultures showed pansensitive E. coli, there was also concern of aspiration pneumonia during this hospitalization, therefore started on Doxycycline and ceftriaxone. Blood cultures were GPC positive initially, so repeat blood cultures, were ordered which were negative. Patient's seizures and altered mentation was likely due to electrolyte ab normalities, Ca throughout hospitalization remained 6.9 - 7.4; Nephrology consultation was requested who recommended resuming calcium carbonate and calcitriol. Doses were adjusted to optimize. Home antiepileptics were resumed. Patient appears to be at baseline mentation at the time of DC. We recommend close follow up with PCP and Nephrology on discharge. Problems on this admission: - Acute Encephalopathy-improving - UTI ruled out. - Aspiration Pneumonia - Moderate Hypocalcemia, Symptomatic - Breakthrough seizure - History of seizure disorder - Primary hypertension - Hyperlipidemia - Hypothyroidism Procedures: None Discharge instructions: - Follow up with PCP within 1 week. Seizures likely due to Hypocalcemia. - Calcium supplement daily, please take as prescribed - Calcitriol also increased to 1mcg twice a day - Restarted Vitamin D 1000 units daily for optimization - Please follow up outpatient with Nephrology Dr Francis for further monitoring. - Take Azithromycin daily for 5 days to complete antibiotic course. - Continue other home medications as prescribed. - Return to ED if symptoms worsen. We are grateful to be able to participate in Ms Ac's care. We wish her the best. Plan of care discussed with attending Dr Hoyos, - Wilfred Cantor M.D. PGY2 Disclaimer: Minor errors in sr vice president may be present as this note was dictated using voice recognition software. Status at Discharge Cognitive/behavioral status at discharge: Stable and returned to baseline. Time Spent with Patient Time attestation: Total time spent providing and/or coordinating discharge services: Time spent: Less than 30 minutes Exam Vital Signs Temp Pulse Resp BP Pulse Ox O2 Del Method O2 Flow Rate 97.3 F 78 20 122/88 H 92 L Room Air 2 08/10/24 08:00 08/10/24 08:00 08/10/24 08:00 08/10/24 08:00 08/10/24 08:00 08/10/24 08:00 08/09/24 15:56 Narrative Exam Constitutional Alert, oriented x2(baseline) , comfortable HEENT Vision grossly intact. Patent nares. Trachea midline. Slowed speech (baseline) Respiratory Chest normal on inspection and clear to auscultation bilaterally. Cardiovascular S1 and S2 audible, RRR. No murmurs or carotid bruit. No gross JVD. Abdominal Soft and BS + ; non tender to palpation in all quadrants. Genitourinary No bladder tenderness, no flank pain. Normal to palpation. Musculoskeletal Extremities tone within normal limits. No LE edema. Neurological CN II - XII grossly intact. Extremity motor and sensation grossly intact. Skin Warm, dry and intact. No apparent lesions. Psychiatric Patient has a good affect, is cooperative. Mild develop delay Discharge Plan Plan Patient Disposition: Xfer [facility]illed [facility] Fac (SNF) Patient condition on transfer: Stable Care Plan Goals: - Follow up with PCP within 1 week. Seizures likely due to Hypocalcemia. - Calcium supplement daily, please take as prescribed - Calcitriol also increased to 1mcg twice a day - Restarted Vitamin D 1000 units daily for optimization - Please follow up outpatient with Nephrology Dr Francis for further monitoring. - Take Azithromycin daily for 5 days to complete antibiotic course. - Continue other home medications as prescribed. - Return to ED if symptoms worsen. Prescriptions/Referrals Prescriptions/Med Rec: New azithromycin 250 mg tablet 250 mg PO QDAY 5 Days Qty: 5 0RF Rx Instructions: start on day 2 of therapy cholecalciferol (vitamin D3) [Vitamin D3] 25 mcg (1,000 unit) capsule 25 mcg PO QDAY 30 Days Qty: 30 0RF calcitriol 0.5 mcg capsule 0.5 mcg PO BID 30 Days Qty: 60 0RF calcium carbonate-mag hydroxid 975-232 mg tablet,chewable 1 tab PO DAILY 30 Days Qty: 30 0RF dextromethorphan-guaifenesin [Maxi-Tuss G] 10-100 mg/5 mL liquid 10 ml PO Q8H PRN (Reason: cough) 30 Days Qty: 500 0RF Continued cetirizine 10 mg Tablet 10 mg PO QDAY olopatadine 0.1 % drops 1 drp OPHTHALMIC (EYE) BID levothyroxine 112 mcg tablet 137 mcg PO ACBR losartan 50 mg tablet 50 mg PO QDAY levetiracetam 500 mg tablet 500 mg PO BID simvastatin 40 mg tablet 40 mg PO HS zonisamide 100 mg capsule 200 mg PO BID carbamazepine 200 mg tablet 200 mg PO BID magnesium oxide 400 mg (241.3 mg magnesium) tablet 400 mg PO QDAY oxybutynin chloride 5 mg tablet 5 mg PO QDAY risperidone 0.5 mg tablet 0.5 mg PO BID Changed ferrous sulfate [FeroSul] 325 mg (65 mg iron) Tablet 325 mg PO Q OTHER DAY Qty: 30 0RF Discontinued hydroxyzine HCl 25 mg tablet 25 mg PO HS fluticasone propionate 50 mcg/actuation [place],Suspension 2 spray INTRANASAL QDAY Rx Instructions: administer into each nostril calcium carbonate 260 mg calcium (648 mg) tablet 260 mg PO QDAY Qty: 30 0RF calcitriol 0.25 mcg capsule 0.25 mcg PO QDAY Referrals: Sirena Sandhu FNP [Primary Care Provider] - Patient/Caregiver Discharge Instructions Discharge Activity: resume usual activities Education Materials: Urinary Tract Infections in Women Print Language: Norwegian Stand Alone Forms: Ana Award Info., Patient Portal Info Letter, Work/Release Restrictions Discharge Order Discharge Orders: Discharge (Routine); Ordered 08/10/24 Ordered By: Wilfred Cantor Quality Discharge Quality Measures VTE prophylaxis Attestestation Attestation I attest that I was physically present for the evaluation, physical examination, lab and imaging review of the patient with the residents. I discussed the case with the residents and agree with the findings and plans of care as documented above. Paty Hoyos MD
== END 2024-08-10 11:39 | disposition skilled nursing facility (03) | DRG 137 ==
LOC: SERX 08-05 05:46 → SERHOLD 08-05 06:25 → S2NX 08-05 07:51 → S3SX 08-07 09:53
PROVIDERS: Student in an Organized Health Care Education/Training Program; Admitting Provider Student in an Organized Health Care Education/Training Program; Emergency Provider Emergency Medicine; PCP Registered Nurse Community Health; Visit Provider Internal Medicine
DX: J69.0 Pneumonitis due to inhalation of food and vomit (principal); G40.909 Epilepsy, unspecified, not intractable, without status epilepticus; E78.00 Pure hypercholesterolemia, unspecified; E03.9 Hypothyroidism, unspecified; E83.51 Hypocalcemia; N39.0 Urinary tract infection, site not specified; G93.40 Encephalopathy, unspecified; N17.9 Acute kidney failure, unspecified; D61.818 Other pancytopenia; N18.9 Chronic kidney disease, unspecified; I12.9 Hypertensive chronic kidney disease with stage 1 through stage 4 chronic kidney disease, or unspecified chronic kidney disease; N20.0 Calculus of kidney; E20.9 Hypoparathyroidism, unspecified; E87.6 Hypokalemia; Z79.890 Hormone replacement therapy; Z79.899 Other long term (current) drug therapy; Z87.442 Personal history of urinary calculi; B96.20 Unspecified Escherichia coli [E. coli] as the cause of diseases classified elsewhere
CPT/HCPCS: 36415; 70450; 71045; 76770; 80053; 80069; 80307; 80320; 81001; 83605; 83735; 84100; 84443; 84484; 85025; 87040; 87077; 87086; 87186; 87811; 93005; 93225; 94640; 94664; 94667; 96365; 96366; 96367; 99285; A9270; G0378; J0612; J0613; J0696; J1644; J3475; J3480; J7030; G0480